=== PATIENT | female | born 1995 | race African-American/Black ===

== ENCOUNTER 2016-07-26 13:42 | Emergency (ER) | payer OTHER ==
[2016-07-26 13:57] VITALS: BP 137/79; PULSE 83; RESP 18; TEMP 98.1
--- NOTE | 2016-07-26 14:10 | ED ---
ENT HPI - General Chief complaint: Dental/Oral Stated complaint: face swelling Time Seen by Provider: 07/26/16 13:58 Source: patient, RN notes reviewed Mode of arrival: ambulatory Limitations: no limitations - History of Present Illness Initial comments: 20-year-old female presents to the emergency Department chief complaint of left- sided dental pain. Patient states that this started about 2 days ago. Patient states left-sided dental pain and facial swelling. Patient denies any pain WAS in the mouth. Patient denies any pain into the neck. Patient states that she was concerned due to the continued swelling so she thought that she should be seen. Patient does have a history of dental infections using antibiotics she has not made his appointment at this time. Patient denies any health symptoms. Patient denies any recent fever, chills, shortness of breath, chest pain, back pain, abdominal pain, nausea vomiting, numbness or tingling, dysuria or hematuria, constipation or diarrhea, headaches or visual changes, or any other current symptoms. - Related Data Home Medications Medication Instructions Recorded Confirmed Ergocalciferol [Vitamin D2] 50,000 unit PO TH 11/26/15 11/26/15 traZODone HCL [Desyrel] 50 mg PO HS 11/26/15 11/26/15 Previous Rx's Medication Instructions Recorded ARIPiprazole IM [Abilify Maintena] 400 mg IM QMONTH #1 vial 07/30/15 Ondansetron Odt [Zofran Odt] 4 mg PO Q8HR PRN #12 tab 11/26/15 Ibuprofen [Motrin] 600 mg PO Q6HR PRN #20 tab 07/26/16 Penicillin V Potassium [Pen Vee K] 500 mg PO TID #40 tab 07/26/16 Allergies Allergy/AdvReac Type Severity Reaction Status Date / Time iodine Allergy Swelling Verified 07/26/16 13:57 Iodine and Iodide Containing Allergy Swelling Verified 07/26/16 13:57 Produc ragweed pollen Allergy Unknown Verified 07/26/16 13:57 Review of Systems ROS Statement: Those systems with pertinent positive or pertinent negative responses have been documented in the HPI. ROS Other: All systems not noted in ROS Statement are negative. Past Medical History Past Medical History: Asthma, Hypertension Additional Past Medical History / Comment(s): no inhaler History of Any Multi-Drug Resistant Organisms: None Reported Past Surgical History: Section Past Anesthesia/Blood Transfusion Reactions: No Reported Reaction Past Psychological History: ADD/ADHD, Anxiety, Bipolar, Depression, PTSD Smoking Status: Current every day smoker Past Alcohol Use History: None Reported Past Drug Use History: Marijuana Additional Drug Use History / Comment(s): Patient states that she smokes MJ one to two joints 4 to 7 days out of the week. Patient reports rare alcohol use. - Past Family History Father History Unknown: Yes Mother Family Medical History: Diabetes Mellitus, Deep Vein Thrombosis (DVT), Myocardial Infarction (HI), Thyroid Disorder General Exam Limitations: no limitations General appearance: alert Head exam: Present: atraumatic, normocephalic, normal inspection Eye exam: Present: normal appearance, PERRL, EOMI. Absent: scleral icterus, conjunctival injection, periorbital swelling ENT exam: Present: normal exam, mucous membranes moist Expanded Ear exam: Present: normal external inspection Mouth exam: Present: normal external inspection Teeth exam: Present: dental caries (Throughout), fractured tooth # (17 and 12), other (No abscess noted). Absent: dental tenderness #, gingival enlargement Throat exam: normal inspection Neck exam: Present: normal inspection. Absent: tenderness, meningismus, lymphadenopathy Respiratory exam: Present: normal lung sounds bilaterally. Absent: respiratory distress, wheezes, rales, rhonchi, stridor Cardiovascular Exam: Present: regular rate, normal rhythm, normal heart sounds. Absent: systolic murmur, diastolic murmur, rubs, gallop, clicks Neurological exam: Present: oriented X3 Psychiatric exam: Present: normal affect, normal mood Skin exam: Present: warm, dry, intact, normal color. Absent: rash Course Vital Signs 07/26/16 13:54 Temperature 98.1 F Pulse Rate 83 Respiratory 18 Rate Blood Pressure 137/79 O2 Sat by Pulse 100 Oximetry Medical Decision Making - Medical Decision Making 20-year-old female presents to the ER with cc of dental pain. At this time we will start antibiotics and pain medications. WE discussed follow up with the dentist and return parameters. Patient in agreement with plan and all questions were answered. Patient will be discharged home. Disposition Clinical Impression: Dental caries Disposition: HOME SELF-CARE Condition: Stable Instructions: Dental Caries (ED) Additional Instructions: Please use medication as discussed. Please follow up with family doctor if symptoms have not improved over the next two days. Please return to the emergency room if your symptoms increase or worsen or for any other concerns. [facility] [address] [place] [address] [phone] (existing clients only) For new clients: [phone] 1st consult: $50 (includes Xrays) Usually 30% less then private dentist for visits after. [employer] Have to pay $50 for Xrays anmd rest is covered. [phone] Prescriptions: Ibuprofen [Motrin] 600 mg PO Q6HR PRN #20 tab PRN Reason: Pain Penicillin V Potassium [Pen Vee K] 500 mg PO TID #40 tab Referrals: None,Stated [Primary Care Provider] - 1-2 days Bryan Morocho MD [STAFF PHYSICIAN] - 1-2 days Time of Disposition: 14:10
== END 2016-07-26 14:30 | disposition home or self-care (01) ==
LOC: EC 13:42
DX: K02.9 Dental caries, unspecified (principal); F41.9 Anxiety disorder, unspecified; F32.9 Major depressive disorder, single episode, unspecified; F17.200 Nicotine dependence, unspecified, uncomplicated; Z79.899 Other long term (current) drug therapy; Z91.048 Other nonmedicinal substance allergy status; Z88.8 Allergy status to other drugs, medicaments and biological substances
CPT/HCPCS: 99283

== ENCOUNTER 2016-12-06 23:05 | Inpatient (IN) | payer MEDICAID, OTHER ==
--- NOTE | 2016-12-06 23:49 | ED ---
General Adult HPI - General Chief complaint: Psychiatric Symptoms Stated complaint: mental health Time Seen by Provider: 12/06/16 23:24 Source: patient, RN notes reviewed Mode of arrival: ambulatory Limitations: no limitations - History of Present Illness Initial comments: 21-year-old female presents to the emergency department with a chief complaint of suicidal ideation. Patient states that she is currently addicted. Patient states today she was either going to kill herself if she was going to get high so she called [facility] and they referred her to the crisis line who referred her here. Patient does admit to history of bipolar depression. Patient states that she did not use drugs since exam this morning. Patient states that she would like to get clean. Patient any specific plan states she had multiple thoughts hurting her head but no specific plan for suicide. Patient states that this time. Patient denies any recent fever, chills, shortness of breath, chest pain, back pain, abdominal pain, nausea vomiting, numbness or tingling, dysuria or hematuria, constipation or diarrhea, headaches or visual changes, or any other current symptoms. - Related Data Home Medications Medication Instructions Recorded Confirmed Albuterol Inhaler [Ventolin Hfa 1 - 2 puff INHALATION RT-Q6H PRN 12/06/16 Inhaler] Allergies Allergy/AdvReac Type Severity Reaction Status Date / Time iodine Allergy Swelling Verified 12/06/16 23:37 Iodine and Iodide Containing Allergy Swelling Verified 12/06/16 23:37 Produc ragweed pollen Allergy Unknown Verified 12/06/16 23:37 Review of Systems ROS Statement: Those systems with pertinent positive or pertinent negative responses have been documented in the HPI. ROS Other: All systems not noted in ROS Statement are negative. Past Medical History Past Medical History: Asthma, Hypertension Additional Past Medical History / Comment(s): no inhaler History of Any Multi-Drug Resistant Organisms: None Reported Past Surgical History: Section Past Anesthesia/Blood Transfusion Reactions: No Reported Reaction Past Psychological History: ADD/ADHD, Anxiety, Bipolar, Depression, PTSD Smoking Status: Current every day smoker Past Alcohol Use History: None Reported Past Drug Use History: Marijuana - Past Family History Father History Unknown: Yes Mother Family Medical History: Diabetes Mellitus, Deep Vein Thrombosis (DVT), Myocardial Infarction (VT), Thyroid Disorder General Exam - General Exam Comments Initial Comments: General: The patient is awake and alert, in no distress, and does not appear acutely ill. Eye: Pupils are equal, round and reactive to light, extra-ocular movements are intact; there is normal conjunctiva bilaterally. No signs of icterus. Ears, nose, mouth and throat: There are moist mucous membranes. Neck: The neck is supple, there is no tenderness. Cardiovascular: There is a regular rate and rhythm. No murmur, rub or gallop is appreciated. Respiratory: Lungs are clear to auscultation, respirations are non-labored, breath sounds are equal. No wheezes, stridor, rales, or rhonchi. Musculoskeletal: Normal ROM, no tenderness, There is no pedal edema. There is no calf tenderness or swelling. Sensation intact. Pulses equal bilaterally 2+. Neurological: CN II-XII intact, There are no obvious motor or sensory deficits. Coordination appears grossly intact. Speech is normal. Skin: Skin is warm and dry and no rashes or lesions are noted. Psychiatric: Cooperative, suicidal ideation. Limitations: no limitations Course Vital Signs 12/06/16 23:14 Temperature 97 F L Pulse Rate 96 Respiratory 18 Rate Blood Pressure 142/90 O2 Sat by Pulse 100 Oximetry Medical Decision Making - Medical Decision Making 21-year-old female presents emergency department with a chief complaint of suicidal ideation. This time the patient does not appear be suffering from any acute medical emergencies. This time the patient is cleared to be evaluated by psychiatry. This time patient was evaluated by psychiatry and they're recommending admission for the patient. - Lab Data Result diagrams: 12/07/16 01:45 12/07/16 01:45 Lab Results 12/06/16 12/06/16 12/06/16 Range/Units 23:30 23:30 23:30 WBC (3.8-10.6) k/uL RBC (3.80-5.40) m/uL Hgb (11.4-16.0) gm/dL Hct (34.0-46.0) % MCV (80.0-100.0) fL MCH (25.0-35.0) pg MCHC (31.0-37.0) g/dL RDW (11.5-15.5) % Plt Count (150-450) k/uL Neutrophils % % Lymphocytes % % Monocytes % % Eosinophils % % Basophils % % Neutrophils # (1.3-7.7) k/uL Lymphocytes # (1.0-4.8) k/uL Monocytes # (0-1.0) k/uL Eosinophils # (0-0.7) k/uL Basophils # (0-0.2) k/uL Sodium (137-145) mmol/L Potassium (3.5-5.1) mmol/L Chloride (98-107) mmol/L Carbon Dioxide (22-30) mmol/L Anion Gap mmol/L BUN (7-17) mg/dL Creatinine (0.52-1.04) mg/dL Est GFR (MDRD) Af Amer (>60 ml/min/1.73 sqM) Est GFR (MDRD) Non-Af (>60 ml/min/1.73 sqM) Glucose (74-99) mg/dL Calcium (8.4-10.2) mg/dL Total Bilirubin (0.2-1.3) mg/dL AST (14-36) U/L ALT (9-52) U/L Alkaline Phosphatase (38-126) U/L Total Protein (6.3-8.2) g/dL Albumin (3.5-5.0) g/dL Urine Color Yellow Urine Appearance Clear (Clear) Urine pH 6.0 (5.0-8.0) Ur Specific Baggs 1.033 (1.001-1.035) Urine Protein Trace H (Negative) Urine Glucose (UA) Negative (Negative) Urine Ketones Trace H (Negative) Urine Blood Moderate H (Negative) Urine Nitrite Negative (Negative) Urine Bilirubin Negative (Negative) Urine Urobilinogen 2.0 (<2.0) mg/dL Ur Leukocyte Esterase Trace H (Negative) Urine RBC 11 H (0-5) /hpf Urine WBC 5 (0-5) /hpf Ur Squamous Epith Cells 2 (0-4) /hpf Calcium Oxalate Crystal Moderate H (None) /hpf Urine Mucus Moderate H (None) /hpf Urine HCG, Qual Not Detected (Not Detectd) Urine Opiates Screen Not Detected (NotDetected) Ur Oxycodone Screen Not Detected (NotDetected) Urine Methadone Screen Not Detected (NotDetected) Ur Propoxyphene Screen Not Detected (NotDetected) Ur Barbiturates Screen Not Detected (NotDetected) U Tricyclic Antidepress Not Detected (NotDetected) Ur Phencyclidine Scrn Not Detected (NotDetected) Ur Amphetamines Screen Detected H (NotDetected) U Methamphetamines Scrn Detected H (NotDetected) U Benzodiazepines Scrn Not Detected (NotDetected) Urine Cocaine Screen Not Detected (NotDetected) U Marijuana (THC) Screen Detected H (NotDetected) 12/07/16 12/07/16 Range/Units 01:45 01:45 WBC 7.3 (3.8-10.6) k/uL RBC 4.04 (3.80-5.40) m/uL Hgb 12.0 (11.4-16.0) gm/dL Hct 36.1 (34.0-46.0) % MCV 89.4 (80.0-100.0) fL MCH 29.6 (25.0-35.0) pg MCHC 33.1 (31.0-37.0) g/dL RDW 14.3 (11.5-15.5) % Plt Count 331 (150-450) k/uL Neutrophils % 46 % Lymphocytes % 43 % Monocytes % 6 % Eosinophils % 2 % Basophils % 1 % Neutrophils # 3.3 (1.3-7.7) k/uL Lymphocytes # 3.2 (1.0-4.8) k/uL Monocytes # 0.4 (0-1.0) k/uL Eosinophils # 0.2 (0-0.7) k/uL Basophils # 0.1 (0-0.2) k/uL Sodium 139 (137-145) mmol/L Potassium 3.7 (3.5-5.1) mmol/L Chloride 109 H (98-107) mmol/L Carbon Dioxide 22 (22-30) mmol/L Anion Gap 8 mmol/L BUN 11 (7-17) mg/dL Creatinine 0.60 (0.52-1.04) mg/dL Est GFR (MDRD) Af Amer >60 (>60 ml/min/1.73 sqM) Est GFR (MDRD) Non-Af >60 (>60 ml/min/1.73 sqM) Glucose 101 H (74-99) mg/dL Calcium 8.9 (8.4-10.2) mg/dL Total Bilirubin 0.3 (0.2-1.3) mg/dL AST 14 (14-36) U/L ALT 26 (9-52) U/L Alkaline Phosphatase 80 (38-126) U/L Total Protein 6.7 (6.3-8.2) g/dL Albumin 3.6 (3.5-5.0) g/dL Urine Color Urine Appearance (Clear) Urine pH (5.0-8.0) Ur Specific Baggs (1.001-1.035) Urine Protein (Negative) Urine Glucose (UA) (Negative) Urine Ketones (Negative) Urine Blood (Negative) Urine Nitrite (Negative) Urine Bilirubin (Negative) Urine Urobilinogen (<2.0) mg/dL Ur Leukocyte Esterase (Negative) Urine RBC (0-5) /hpf Urine WBC (0-5) /hpf Ur Squamous Epith Cells (0-4) /hpf Calcium Oxalate Crystal (None) /hpf Urine Mucus (None) /hpf Urine HCG, Qual (Not Detectd) Urine Opiates Screen (NotDetected) Ur Oxycodone Screen (NotDetected) Urine Methadone Screen (NotDetected) Ur Propoxyphene Screen (NotDetected) Ur Barbiturates Screen (NotDetected) U Tricyclic Antidepress (NotDetected) Ur Phencyclidine Scrn (NotDetected) Ur Amphetamines Screen (NotDetected) U Methamphetamines Scrn (NotDetected) U Benzodiazepines Scrn (NotDetected) Urine Cocaine Screen (NotDetected) U Marijuana (THC) Screen (NotDetected) Disposition Clinical Impression: Depression Disposition: TRANSFER TO PSYCH HOSP/UNIT Referrals: None,Stated [Primary Care Provider] - 1-2 days
[2016-12-07 01:39] LABS: Appearance,Urine Clear (Clear); Bilirubin,Urine Negative (Negative); Calcium Oxalate Crystals,Urine Moderate /hpf; Glucose,Urine (UA) Negative (Negative); Ketones,Urine Trace (Negative); Leukocyte Esterase,Urine Trace (Negative); Mucus,Urine Moderate /hpf; Nitrite,Urine Negative (Negative); Particle Count 6943; Protein,Urine Trace (Negative); RBC,Urine 11 /hpf (0-5); Specific Gravity,Urine 1.033 (1.001-1.035); Squamous Epithelial Cell,Urine 2 /hpf (0-4); UA Billing (MACRO vs. MICRO) MICRO; WBC,Urine 5 /hpf (0-5)
[2016-12-07 01:50] LABS: Basophils # (A) 0.1 k/uL (0-0.2); Basophils % (A) 1 %; CH 31.1; Eosinophils # (A) 0.2 k/uL (0-0.7); Eosinophils % (A) 2 %; HCT 36.1 % (34.0-46.0); Luc # (Auto) 0.16; Luc % (Auto) 2; Lymphocytes # (A) 3.2 k/uL (1.0-4.8); Lymphocytes % (A) 43 %; MCH 29.6 pg (25.0-35.0); MCHC 33.1 g/dL (31.0-37.0); MCV 89.4 fL (80.0-100.0); Mean Platelet Volume 7.1; Monocytes # (A) 0.4 k/uL (0-1.0); Monocytes % (A) 6 %; Neutrophils # (A) 3.3 k/uL (1.3-7.7); Neutrophils % (A) 46 %; RBC 4.04 m/uL (3.80-5.40); RDW 14.3 % (11.5-15.5); WBC 7.3 k/uL (3.8-10.6); WBC (Perox) 6.88
[2016-12-07 02:06] LABS: ALT 26 U/L (9-52); AST 14 U/L (14-36); Alkaline Phosphatase 80 U/L (38-126); Anion Gap 8 mmol/L; Blood Urea Nitrogen 11 mg/dL (7-17); Calcium 8.9 mg/dL (8.4-10.2); Carbon Dioxide 22 mmol/L (22-30); Chloride 109 mmol/L (98-107); Glucose 101 mg/dL (74-99); Non-African American GFR(MDRD) >60 (>60 ml/min/1.73 sqM); Potassium 3.7 mmol/L (3.5-5.1); Sodium 139 mmol/L (137-145); Total Bilirubin 0.3 mg/dL (0.2-1.3); Total Protein 6.7 g/dL (6.3-8.2)
[2016-12-07] MEDS ORDERED: LORazepam 1 MG TAB PO STA (14:05)
[2016-12-07] MEDS ORDERED: MAG HYDROX/AL HYDROX/SIMETH 30 ML CUP PO PRN (18:31)
[2016-12-07] MEDS ORDERED: ZIPRASIDONE 20 MG VIAL IM PRN (18:31)
[2016-12-07] MEDS ORDERED: LORazepam 1 MG TAB PO PRN (18:31)
[2016-12-07] MEDS ORDERED: MAGNESIUM HYDROXIDE 2,400 MG/10 ML CUP PO PRN (18:31)
[2016-12-07] MEDS ORDERED: ACETAMINOPHEN TAB 325 MG TAB PO PRN (18:31)
[2016-12-07] MEDS ORDERED: IBUPROFEN 600 MG TAB PO PRN (19:49)
--- NOTE | 2016-12-07 22:53 | P.MDCNMH ---
History of Present Illness H&P Date: 12/07/16 Chief Complaint: medical management 21-year-old female with remote past medical history of high blood pressure and asthma however she is currently taking no medications. Upon interviewing the patient she refuses to talk about her psychiatry/mental conditions and directed me to review her chart. She is denying any medical complaints at this time, and denies any history of medical issues. She admits to history of depression , PTSD, ADH and bipolar disorder. 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 Patient reported to the ED doctor that she wants to be clean and seeking rehab. Review of Systems Constitutional: Patient reports no fever, no chills, no night sweating, no significant weight changes Eyes: Patient reports no visual changes, no eye pain ENT: Patient reports no ear pain, no rhinorrhea, no sore throat Cardiovascular: Patient reports no chest pain, no exertional dyspnea, no peripheral leg edema, no orthopnea, no paroxysmal nocturnal dyspnea Respiratory:Patient reports no cough, no wheezing, no shortness of breath Gastrointestinal: Patient reports no diarrhea, no constipation, no nausea no vomiting, no abdominal pain Genitourinary: Patient reports no dysuria, no hematuria, no changes in urinary habits, no genital lesions. currently having her periods Musculoskeletal: Patient reports no muscle pain, no joint pain Psychiatric: Patient reports anxiety, and depressed mood Endocrine: Patient reports no heat intolerance, no cold intolerance, no excessive thirst, no polyuria Neurological: Patient reports no focal neurologic deficits, no weakness, no numbness, no tingling Hem/Lymphatic: Patient reports no bleeding tendency, no bruising, no swollen lymph glands Allergic/Immun: Patient reports no recent allergic reactions Skin: Patient reports no rashes, no pruritis, no ulcers Past Medical History Past Medical History: Asthma, Hypertension Additional Past Medical History / Comment(s): no inhaler History of Any Multi-Drug Resistant Organisms: None Reported Past Surgical History: Section Past Anesthesia/Blood Transfusion Reactions: No Reported Reaction Past Psychological History: ADD/ADHD, Anxiety, Bipolar, Depression, PTSD Smoking Status: Current every day smoker Past Alcohol Use History: None Reported Past Drug Use History: Marijuana - Past Family History Father History Unknown: Yes Mother History Unknown: Yes Additional Family Medical History / Comment(s): patient adopted Medications and Allergies Home Medications and Allergies Comment(s): patient reported taking no medications Home Medications Medication Instructions Recorded Confirmed Type Albuterol Inhaler [Ventolin Hfa 1 - 2 puff INHALATION RT-Q6H PRN 12/06/16 History Inhaler] Allergies Allergy/AdvReac Type Severity Reaction Status Date / Time iodine Allergy Swelling Verified 12/06/16 23:37 Iodine and Iodide Containing Allergy Swelling Verified 12/06/16 23:37 Produc ragweed pollen Allergy Unknown Verified 12/06/16 23:37 Physical Exam Vitals: Vital Signs Temp Pulse Resp BP BP Pulse Ox 12/07/16 15:29 98.0 F 15 99/55 98 12/07/16 14:30 98.3 F 86 18 105/54 99 12/07/16 12:41 97.8 F 90 16 105/69 99 12/07/16 06:40 96 16 100/52 98 12/06/16 23:14 97 F L 96 18 142/90 100 Intake and Output 12/07/16 12/07/16 12/07/16 06:59 14:59 22:59 Other: Weight 91.172 kg Constitutional: No acute distress, conversant, pleasant Eyes: Anicteric sclerae, moist conjunctiva, no lid-lag Pupils equal round reactive to light ENMT: NC/AT Oropharynx clear, no erythema, exudates Neck: Supple, FROM, no masses, or JVD No carotid bruits No thyromegaly Lungs: Clear to auscultation Clear to percussion Normal respiratory effort, no accessory muscle use Cardiovascular: Heart regular in rate and rhythm, No murmurs, gallops, or rubs No peripheral edema Abdominal: Soft Nontender, no guarding, rebound or rigidity Abdomen moving with respiration Normoactive bowel sounds No hepatomegaly, No splenomegaly No palpable mass No abdominal wall hernia noted Skin: Normal temperature, tone, texture, turgor No induration No subcutaneous nodules No rash, lesions No ulcers Extremities: No digital cyanosis No clubbing Pedal pulses intact and symmetrical Radial pulses intact and symmetrical No calf tenderness Psychiatric: Alert and oriented to person, place and time depressed affect poor judgement Neuro Muscles Strength 5/5 in all 4 extremities Sensation to light touch grossly present throughout Cranial nerves II-XII grossly intact No focal sensory deficits Lymphatics: no palpable cervical or supraclavicular , or inguinal lymph nodes Cranial Nerve Examination - Cranial Nerves Cranial Nerve II- Optic: Intact Cranial Nerve III- Oculomotor: Intact Cranial Nerve IV- Trochlear: Intact Cranial Nerve V- Trigeminal: Intact Cranial Nerve - Abducens: Intact Cranial Nerve VII- Facial: Intact Cranial Nerve VIII- Auditory: Intact Cranial Nerve IX- Glossopharyngeal: Intact Cranial Nerve X- Vagus: Intact Cranial Nerve XI- Accessory: Intact Cranial Nerve XII- Hypoglossal: Intact Results Results: reviewed CBC & Chem 7: 12/07/16 01:45 12/07/16 01:45 Labs: Abnormal Lab Results - Last 24 Hours (Table) 12/06/16 12/06/16 12/07/16 Range/Units 23:30 23:30 01:45 Chloride 109 H (98-107) mmol/L Glucose 101 H (74-99) mg/dL Urine Protein Trace H (Negative) Urine Ketones Trace H (Negative) Urine Blood Moderate H (Negative) Ur Leukocyte Esterase Trace H (Negative) Urine RBC 11 H (0-5) /hpf Calcium Oxalate Crystal Moderate H (None) /hpf Urine Mucus Moderate H (None) /hpf Ur Amphetamines Screen Detected H (NotDetected) U Methamphetamines Scrn Detected H (NotDetected) U Marijuana (THC) Screen Detected H (NotDetected) Assessment and Plan (1) Depression Status: Chronic (2) Suicidal ideation Status: Acute (3) Menstrual cramps Status: Acute Plan: Management per psychiatry 50 prophylaxis patient is ambulatory and low risk Motrin when necessary for menstrual cramps Thank you for allowing us to participate in the care of this patient. We will follow peripherally. Do not hesitate to contact us with questions. Someone can be reached from the [facility] hospitalist group at all hours of the day at [phone].
[2016-12-08 07:07] VITALS: BP 101/59; PULSE 85; RESP 18; TEMP 98.1
[2016-12-08] MEDS ORDERED: NICOTINE 14MG/24HR PATCH TRANSDERM SCH (09:00)
--- NOTE | 2016-12-08 10:20 | P.HP ---
Psychiatric H&P - . H&P Date: 12/08/16 History & Physical: Allergies Allergy/AdvReac Type Severity Reaction Status Date / Time iodine Allergy Swelling Verified 12/06/16 23:37 Iodine and Iodide Containing Allergy Swelling Verified 12/06/16 23:37 Produc ragweed pollen Allergy Unknown Verified 12/06/16 23:37 Vital Signs Temp 98.1 F 12/08/16 07:03 Pulse 85 12/08/16 07:03 Resp 18 12/08/16 07:03 BP 101/59 12/08/16 07:03 Pulse Ox 98 12/07/16 15:29 Laboratory Last Values WBC 7.3 k/uL (3.8-10.6) 12/07/16 01:45 RBC 4.04 m/uL (3.80-5.40) 12/07/16 01:45 Hgb 12.0 gm/dL (11.4-16.0) 12/07/16 01:45 Hct 36.1 % (34.0-46.0) 12/07/16 01:45 MCV 89.4 fL (80.0-100.0) 12/07/16 01:45 MCH 29.6 pg (25.0-35.0) 12/07/16 01:45 MCHC 33.1 g/dL (31.0-37.0) 12/07/16 01:45 RDW 14.3 % (11.5-15.5) 12/07/16 01:45 Plt Count 331 k/uL (150-450) 12/07/16 01:45 Neutrophils % 46 % 12/07/16 01:45 Lymphocytes % 43 % 12/07/16 01:45 Monocytes % 6 % 12/07/16 01:45 Eosinophils % 2 % 12/07/16 01:45 Basophils % 1 % 12/07/16 01:45 Neutrophils # 3.3 k/uL (1.3-7.7) 12/07/16 01:45 Lymphocytes # 3.2 k/uL (1.0-4.8) 12/07/16 01:45 Monocytes # 0.4 k/uL (0-1.0) 12/07/16 01:45 Eosinophils # 0.2 k/uL (0-0.7) 12/07/16 01:45 Basophils # 0.1 k/uL (0-0.2) 12/07/16 01:45 Sodium 139 mmol/L (137-145) 12/07/16 01:45 Potassium 3.7 mmol/L (3.5-5.1) 12/07/16 01:45 Chloride 109 mmol/L (98-107) H 12/07/16 01:45 Carbon Dioxide 22 mmol/L (22-30) 12/07/16 01:45 Anion Gap 8 mmol/L 12/07/16 01:45 BUN 11 mg/dL (7-17) 12/07/16 01:45 Creatinine 0.60 mg/dL (0.52-1.04) 12/07/16 01:45 Est GFR (MDRD) Af Amer >60 (>60 ml/min/1.73 sqM) 12/07/16 01:45 Est GFR (MDRD) Non-Af >60 (>60 ml/min/1.73 sqM) 12/07/16 01:45 Glucose 101 mg/dL (74-99) H 12/07/16 01:45 Calcium 8.9 mg/dL (8.4-10.2) 12/07/16 01:45 Total Bilirubin 0.3 mg/dL (0.2-1.3) 12/07/16 01:45 AST 14 U/L (14-36) 12/07/16 01:45 ALT 26 U/L (9-52) 12/07/16 01:45 Alkaline Phosphatase 80 U/L (38-126) 12/07/16 01:45 Total Protein 6.7 g/dL (6.3-8.2) 12/07/16 01:45 Albumin 3.6 g/dL (3.5-5.0) 12/07/16 01:45 TSH 1.150 mIU/L (0.465-4.680) 12/07/16 01:45 Urine Color Yellow 12/06/16 23:30 Urine Appearance Clear (Clear) 12/06/16 23:30 Urine pH 6.0 (5.0-8.0) 12/06/16 23:30 Ur Specific [place] 1.033 (1.001-1.035) 12/06/16 23:30 Urine Protein Trace (Negative) H 12/06/16 23:30 Urine Glucose (UA) Negative (Negative) 12/06/16 23:30 Urine Ketones Trace (Negative) H 12/06/16 23:30 Urine Blood Moderate (Negative) H 12/06/16 23:30 Urine Nitrite Negative (Negative) 12/06/16 23:30 Urine Bilirubin Negative (Negative) 12/06/16 23:30 Urine Urobilinogen 2.0 mg/dL (<2.0) 12/06/16 23:30 Ur Leukocyte Esterase Trace (Negative) H 12/06/16 23:30 Urine RBC 11 /hpf (0-5) H 12/06/16 23:30 Urine WBC 5 /hpf (0-5) 12/06/16 23:30 Ur Squamous Epith Cells 2 /hpf (0-4) 12/06/16 23:30 Calcium Oxalate Crystal Moderate /hpf (None) H 12/06/16 23:30 Urine Mucus Moderate /hpf (None) H 12/06/16 23:30 Urine HCG, Qual Not Detected (Not Detectd) 12/06/16 23:30 Urine Opiates Screen Not Detected (NotDetected) 12/06/16 23:30 Ur Oxycodone Screen Not Detected (NotDetected) 12/06/16 23:30 Urine Methadone Screen Not Detected (NotDetected) 12/06/16 23:30 Ur Propoxyphene Screen Not Detected (NotDetected) 12/06/16 23:30 Ur Barbiturates Screen Not Detected (NotDetected) 12/06/16 23:30 U Tricyclic Antidepress Not Detected (NotDetected) 12/06/16 23:30 Ur Phencyclidine Scrn Not Detected (NotDetected) 12/06/16 23:30 Ur Amphetamines Screen Detected (NotDetected) H 12/06/16 23:30 U Methamphetamines Scrn Detected (NotDetected) H 12/06/16 23:30 U Benzodiazepines Scrn Not Detected (NotDetected) 12/06/16 23:30 Urine Cocaine Screen Not Detected (NotDetected) 12/06/16 23:30 U Marijuana (THC) Screen Detected (NotDetected) H 12/06/16 23:30 12/08/16 09:56 Identification: Patient is a 21-year-old female who was came to the emergency room she states after she called [facility] in told her to call crisis support. When she spoke with crisis support she was told to come to the emergency room because she verbalized to them that she was going to "get high or to something stupid" History of Present Illness: Patient states that she has not received her medications since August and she was receiving Abilify Maintena, she states that she over the last 6 months has felt increasingly suicidal every time she comes off methamphetamine which she states she has been using on a daily basis as well as marijuana. Patient states that when she saw me yesterday in the emergency room she threatened suicide because I would not let her sleep and I asked too many questions. Patient is a fair historian. Patient states that she got into an argument with the father of her child and this is when she made the statement that she was going to do something stupid like get a needle or shoot up. Patient states that her sister in September of an overdose of heroin. Patient at one point stated she was only using methamphetamine daily prior to her admission at another point said she been using it for the last 6 months and states that no one knew she was using methamphetamine. Patient is unable to tell me how she was doing on the Abilify Maintena states that she was receiving injectable medication because she was not compliant with her oral medication. Patient reports that she's been diagnosed with bipolar depression states she has episodes where she feels happy, talking a lot talking too fast increased energy and impulsive behavior. She describes episodes of depression where she is withdrawn, having suicidal ideation and states that she gets high when she is feeling depressed so that she can numb her feelings. And then states that she feels suicidal every time she comes off the methamphetamine. Patient does not endorse any auditory hallucinations or paranoid ideation currently or in the past. She denies any thought insertion or thought broadcasting. Patient states she is interested in going into rehab for her drug use and states she doesn't feel that she needs to be in the hospital. Past Psychiatric History: Patient reports 3 prior admissions in May and July 2015 and states that she attempted suicide in the past with an overdose in 2016. Patient has been on Depakote, Zoloft, Prozac, Cymbalta, Remeron, Seroquel, trazodone and most recently Abilify Maintena Past Medical/Surgical History: Patient states she's been diagnosed with hypertension in the past but her medications were stopped by her primary care physician because her blood pressures were normal. Patient also has a history of asthma and is status post . Home Medications Medication Instructions Recorded Confirmed Albuterol Inhaler [Ventolin Hfa 1 - 2 puff INHALATION RT-Q6H PRN 12/06/16 Inhaler] Family History: [Patient states she is adopted and knows none of her family history. Social History: Patient states she was born and raised in [place] and adopted at the age of 6. She states she was in multiple foster care homes prior to her adoption and is unsure about why she was placed in foster care she states that she has heard different stories her mother stating that she had to work too much and the papers state that her mother was neglecting them. Patient was adopted at the age of 6 and states that she has 5 adopted sisters and 2 adopted brothers however they were all adults when she was adopted. Her adoptive parents are alive and she has contact with her mother. Her father she states is in halfway. She states she has 3/2 sisters who share the same mother with her. Patient states she completed high school and went on to college and attended for 3 semesters and then stopped. 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 Patient has been living on her own in an apartment. She has never been . She has 1 son who lives with his father he is 20 months of age. She states his father has sole custody after she signed him over to her best friend and then found out that she was involved wit the father of her baby she then signed the rights over to him. Substance Use History: Patient states she's been using methamphetamine since the age 20 and states that she has been using it on a daily basis and has been using it for at least the last 6 months. Patient states that she used to use alcohol when she was working as a stripper 6 nights a week but has not been using it recently. She states she is uses marijuana daily since the age of 11. She denies any other history of drug use currently or in the past. Legal History: Patient denies any legal history. Mental Status:Appearance/Attitude: Patient is dressed in a hospital gown, makes intermittent eye contact and is superficially cooperative. Behavior: Patient does not display any psychomotor agitation or retardation. Speech/Language: Patient is spontaneous however her answers are brief to my questions and she needs redirection to elaborate, she speaks in a normal tone and rhythm and she is coherent. Thought Process: Patient is goal-directed, not circumstantial or tangential and no loose associations or flight of ideas. Thought Content: Patient denies any auditory or visual hallucinations no delusions or paranoid ideation were elicited. Patient states that she told me yesterday she was suicidal because she was upset that I would not let her sleep for another 20 minutes and was asking too many questions. She also states that she contacted [facility] wanting to start the program and he told her to call the crisis center where she told them that she was going to get high or do something stupid with a needle or shoot up. Patient states she's felt suicidal every day over the last 6 months whenever she is coming off the methamphetamine. Suicidal/Homicidal Ideation: Patient denies any current suicidal or homicidal ideation. Sensorium/Cognition: Patient is alert and oriented to person, place, and time and her memory is grossly intact. Mood/Affect: Patient's mood is irritable and her affect is appropriate. Insight/Judgement: Patient's insight and judgment are poor. Intellectual Functioning: Patient's intellectual functioning appears average. Strength/Weaknesses: Patient does have a place to live/lack of compliance with medication and follow-up, use of drugs. Assessment: Patient was seen in the emergency room yesterday where she was sleeping and refused to sit up and speak with me and would only answer questions with brief responses and when she was asked if she was suicidal and couldn't contract for safety she told me know that she was going to do something and then stated that she wanted to leave the hospital. Patient now states that she threatened suicide because I didn't let her sleep for another 20 minutes and was asking too many questions. The patient states she has been using methamphetamine over the last 6 months and every time she comes off of the methamphetamine she feels suicidal then at another point she told me that she uses the methamphetamine when she is feeling depressed to get numb. Patient has not been receiving her medications since August per the patient and this was Shank[facility]. Patient is being followed at [facility]. Patient states she got into an argument with the father of her baby and she called [facility] wanting to get into the rehab program and was told to call the crisis center. She talked states when she spoke to the crisis support team she told them that she was going to "get high or do something stupid like get a needle and shoot up. Patient currently states she does not need to be in the hospital and is no longer feeling suicidal. Admission Diagnoses:[Methamphetamine-induced depressive disorder with use, methamphetamine use disorder, moderate, cannabis use disorder, moderate ,rule out bipolar type II disorder Plan: Patient was admitted on a voluntary basis, placed on routine precautions, routine laboratory studies were ordered and a medical consultation was requested. She was also ordered group and activity therapy. Patient reports that she is no longer feeling suicidal and states she only said that yesterday because she was upset that I wouldn't let her continue to sleep and was asking her questions. Patient states that she has not had any medications since August and does not endorse any current manic symptoms or psychotic symptoms. Patient has been using methamphetamine over the last 6 months. Patient also uses marijuana on a daily basis. Patient at this time states that she wants to go to inpatient rehab for her methamphetamine use. Will discuss with [facility] about whether or not they want to reinstitute Shankar Sullivan and their discharge plans for this patient. Can consider discharge within the next several days. 12/08/16 10:12
[2016-12-08] MEDS ORDERED: ARIPiprazole 400 MG VIAL IM ONE (11:53)
--- NOTE | 2016-12-08 13:09 | P.DS ---
Providers Date of admission: 12/07/16 14:27 Expected date of discharge: 12/08/16 Attending physician: Do Sanchez MD Consults: 12/07/16 18:43 Consult Physician Routine Consulting Provider: Sherrie Upton Consult Reason/Comments: H and P and medical follow up Do you want consulting provider notified?: Yes Primary care physician: Stated None Hospital Course: Discharge Diagnoses: History of Present Illness:Patient is a 21-year-old female who was came to the emergency room she states after she called [facility] in a told her to call crisis support. When she spoke with crisis support she was told to come to the emergency room because she verbalized to them that she was going to "get high or do something stupid". Reason for Admission: Patient states that she has not received her medications since August and she was receiving Abilify Maintena, she states that she over the last 6 months has felt increasingly suicidal every time she comes off methamphetamine which she states she has been using on a daily basis as well as marijuana. Patient states that when she saw me yesterday in the emergency room she threatened suicide because I would not let her sleep and I asked too many questions. Patient is a fair historian. Patient states that she got into an argument with the father of her child and this is when she made the statement that she was going to do something stupid like get a needle or shoot up. Patient states that her sister in September of an overdose of heroin. Patient at one point stated she was only using methamphetamine daily prior to her admission at another point said she been using it for the last 6 months and states that no one knew she was using methamphetamine. Patient is unable to tell me how she was doing on the Abilify Maintena states that she was receiving injectable medication because she was not compliant with her oral medication. Patient reports that she's been diagnosed with bipolar depression states she has episodes where she feels happy, talking a lot talking too fast increased energy and impulsive behavior. She describes episodes of depression where she is withdrawn, having suicidal ideation and states that she gets high when she is feeling depressed so that she can numb her feelings. And then states that she feels suicidal every time she comes off the methamphetamine. Patient does not endorse any auditory hallucinations or paranoid ideation currently or in the past. She denies any thought insertion or thought broadcasting. Patient states she is interested in going into rehab for her drug use and states she doesn't feel that she needs to be in the hospital. Hospital Course: Patient was admitted on a voluntary basis, routine laboratory studies were performed medical consultation was requested in group and activity therapy were ordered. Patient was maintained on routine precautions. Patient and I met and she stated that she reported to me yesterday that she was feeling suicidal due to the fact that I would not let her sleep and asked too many questions. She states that she is no longer feeling suicidal and wants to leave the hospital. Patient has been sleeping on the unit not attending groups and activities. During team treatment meeting it was discussed at [facility] that they would like her restarted on her Abilify Maintena in a stated that they wouldn't patient was agreeable to receiving another injection of Abilify Maintena 400 mg and she received a today. Patient was no longer reporting feeling depressed, no longer reporting suicidal ideations and stated that she is sleeping well and her appetite is good. Patient will be discharged to follow up with [facility]. Discharge Mental Status:Appearance/Attitude: Patient is dressed in a hospital gown, makes intermittent eye contact and is superficially cooperative. Behavior: Patient does not display any psychomotor agitation or retardation. Speech/Language: Patient is spontaneous however her answers are brief to my questions and she needs redirection to elaborate, she speaks in a normal tone and rhythm and she is coherent. Thought Process: Patient is goal-directed, not circumstantial or tangential and no loose associations or flight of ideas. Thought Content: Patient denies any auditory or visual hallucinations no delusions or paranoid ideation were elicited. Patient states that she told me yesterday she was suicidal because she was upset that I would not let her sleep for another 20 minutes and was asking too many questions. She also states that she contacted [facility] wanting to start the program and he told her to call the crisis center where she told them that she was going to get high or do something stupid with a needle or shoot up. Patient states she's felt suicidal every day over the last 6 months whenever she is coming off the methamphetamine. Suicidal/Homicidal Ideation: Patient denies any current suicidal or homicidal ideation. Sensorium/Cognition: Patient is alert and oriented to person, place, and time and her memory is grossly intact. Mood/Affect: Patient's mood is irritable and her affect is appropriate. Insight/Judgement: Patient's insight and judgment are poor. Laboratory Last Values WBC 7.3 k/uL (3.8-10.6) 12/07/16 01:45 RBC 4.04 m/uL (3.80-5.40) 12/07/16 01:45 Hgb 12.0 gm/dL (11.4-16.0) 12/07/16 01:45 Hct 36.1 % (34.0-46.0) 12/07/16 01:45 MCV 89.4 fL (80.0-100.0) 12/07/16 01:45 MCH 29.6 pg (25.0-35.0) 12/07/16 01:45 MCHC 33.1 g/dL (31.0-37.0) 12/07/16 01:45 RDW 14.3 % (11.5-15.5) 12/07/16 01:45 Plt Count 331 k/uL (150-450) 12/07/16 01:45 Neutrophils % 46 % 12/07/16 01:45 Lymphocytes % 43 % 12/07/16 01:45 Monocytes % 6 % 12/07/16 01:45 Eosinophils % 2 % 12/07/16 01:45 Basophils % 1 % 12/07/16 01:45 Neutrophils # 3.3 k/uL (1.3-7.7) 12/07/16 01:45 Lymphocytes # 3.2 k/uL (1.0-4.8) 12/07/16 01:45 Monocytes # 0.4 k/uL (0-1.0) 12/07/16 01:45 Eosinophils # 0.2 k/uL (0-0.7) 12/07/16 01:45 Basophils # 0.1 k/uL (0-0.2) 12/07/16 01:45 Sodium 139 mmol/L (137-145) 12/07/16 01:45 Potassium 3.7 mmol/L (3.5-5.1) 12/07/16 01:45 Chloride 109 mmol/L (98-107) H 12/07/16 01:45 Carbon Dioxide 22 mmol/L (22-30) 12/07/16 01:45 Anion Gap 8 mmol/L 12/07/16 01:45 BUN 11 mg/dL (7-17) 12/07/16 01:45 Creatinine 0.60 mg/dL (0.52-1.04) 12/07/16 01:45 Est GFR (MDRD) Af Amer >60 (>60 ml/min/1.73 sqM) 12/07/16 01:45 Est GFR (MDRD) Non-Af >60 (>60 ml/min/1.73 sqM) 12/07/16 01:45 Glucose 101 mg/dL (74-99) H 12/07/16 01:45 Calcium 8.9 mg/dL (8.4-10.2) 12/07/16 01:45 Total Bilirubin 0.3 mg/dL (0.2-1.3) 12/07/16 01:45 AST 14 U/L (14-36) 12/07/16 01:45 ALT 26 U/L (9-52) 12/07/16 01:45 Alkaline Phosphatase 80 U/L (38-126) 12/07/16 01:45 Total Protein 6.7 g/dL (6.3-8.2) 12/07/16 01:45 Albumin 3.6 g/dL (3.5-5.0) 12/07/16 01:45 TSH 1.150 mIU/L (0.465-4.680) 12/07/16 01:45 Urine Color Yellow 12/06/16 23:30 Urine Appearance Clear (Clear) 12/06/16 23:30 Urine pH 6.0 (5.0-8.0) 12/06/16 23:30 Ur Specific [place] 1.033 (1.001-1.035) 12/06/16 23:30 Urine Protein Trace (Negative) H 12/06/16 23:30 Urine Glucose (UA) Negative (Negative) 12/06/16 23:30 Urine Ketones Trace (Negative) H 12/06/16 23:30 Urine Blood Moderate (Negative) H 12/06/16 23:30 Urine Nitrite Negative (Negative) 12/06/16 23:30 Urine Bilirubin Negative (Negative) 12/06/16 23:30 Urine Urobilinogen 2.0 mg/dL (<2.0) 12/06/16 23:30 Ur Leukocyte Esterase Trace (Negative) H 12/06/16 23:30 Urine RBC 11 /hpf (0-5) H 12/06/16 23:30 Urine WBC 5 /hpf (0-5) 12/06/16 23:30 Ur Squamous Epith Cells 2 /hpf (0-4) 12/06/16 23:30 Calcium Oxalate Crystal Moderate /hpf (None) H 12/06/16 23:30 Urine Mucus Moderate /hpf (None) H 12/06/16 23:30 Urine HCG, Qual Not Detected (Not Detectd) 12/06/16 23:30 Urine Opiates Screen Not Detected (NotDetected) 12/06/16 23:30 Ur Oxycodone Screen Not Detected (NotDetected) 12/06/16 23:30 Urine Methadone Screen Not Detected (NotDetected) 12/06/16 23:30 Ur Propoxyphene Screen Not Detected (NotDetected) 12/06/16 23:30 Ur Barbiturates Screen Not Detected (NotDetected) 12/06/16 23:30 U Tricyclic Antidepress Not Detected (NotDetected) 12/06/16 23:30 Ur Phencyclidine Scrn Not Detected (NotDetected) 12/06/16 23:30 Ur Amphetamines Screen Detected (NotDetected) H 12/06/16 23:30 U Methamphetamines Scrn Detected (NotDetected) H 12/06/16 23:30 U Benzodiazepines Scrn Not Detected (NotDetected) 12/06/16 23:30 Urine Cocaine Screen Not Detected (NotDetected) 12/06/16 23:30 U Marijuana (THC) Screen Detected (NotDetected) H 12/06/16 23:30 Risk Assessment: Patient's risk is low should she follow-up with outpatient treatment and be compliant with her medications and remain sober. Discharge Plan: Patient will be discharged to return to her own apartment, she will follow up with [facility] and received Abilify Maintena 400 mg IM today and will be due for another injection in one month dose to be determined by [facility]. Patient was advised to avoid any drug use and follow-up and be compliant with treatment. Patient Condition at Discharge: Stable Plan - Discharge Summary New Discharge Prescriptions: Continue Albuterol Inhaler [Ventolin Hfa Inhaler] 1 - 2 puff INHALATION RT-Q6H PRN PRN Reason: Shortness Of Breath Discharge Medication List Albuterol Inhaler [Ventolin Hfa Inhaler] 1 - 2 puff INHALATION RT-Q6H PRN [History] Follow up Appointment(s)/Referral(s): intake,intake [Other] - [address] [facility] [Outside] - 12/13/16 10:45 am (12/13/16 at 1045 with Katie) None,Stated [Primary Care Provider] - 1-2 days Discharge Disposition: HOME SELF-CARE
== END 2016-12-08 17:18 | disposition home or self-care (01) | DRG 897 ==
LOC: EC 23:05 → 3MHU 12-07 14:27
PROVIDERS: ADMIT Psychiatry & Neurology Psychiatry; ATTEND Psychiatry & Neurology Psychiatry
DX: F15.94 Other stimulant use, unspecified with stimulant-induced mood disorder (principal); R45.851 Suicidal ideations; F12.988 Cannabis use, unspecified with other cannabis-induced disorder; F17.200 Nicotine dependence, unspecified, uncomplicated; F43.10 Post-traumatic stress disorder, unspecified; F90.9 Attention-deficit hyperactivity disorder, unspecified type; Z82.49 Family history of ischemic heart disease and other diseases of the circulatory system; Z91.19 Patient's noncompliance with other medical treatment and regimen
CPT/HCPCS: 36415; 80053; 80306; 81001; 81025; 82075; 84443; 85025; 99285

== ENCOUNTER 2017-01-22 08:59 | Emergency (ER) | payer OTHER ==
[2017-01-22 09:08] VITALS: BP 132/74; PULSE 102; RESP 20; TEMP 98.2
[2017-01-22] MEDS ORDERED: CLINDAMYCIN 150 MG/ML 4 ML VIAL IM STA (09:27)
--- NOTE | 2017-01-22 09:31 | ED ---
ENT HPI - General Chief complaint: Dental/Oral Stated complaint: tooth abcess Time Seen by Provider: 01/22/17 09:17 Source: patient, RN notes reviewed Mode of arrival: ambulatory Limitations: no limitations - History of Present Illness Initial comments: 21-year-old female presented emergency department for dental abscess. Patient was seen yesterday at [facility] and was given Toradol and Vicodin. Patient states she was placed on antibiotics was only taken 3 doses of it. She states she's unsure what this is but only as prescribed 3 times a day. Patient states that she was advised come here because they do not have oral surgeon. Patient states that there is now a bump that she noted inside of her mouth. Patient has fevers or chills denies any neck pain no headache or dizziness. - Related Data Home Medications Medication Instructions Recorded Confirmed Albuterol Inhaler [Ventolin Hfa 1 - 2 puff INHALATION RT-Q6H PRN 12/06/16 Inhaler] ARIPiprazole [Abilitheron Maintena] 400 mg IM QMONTH 12/08/16 12/08/16 Previous Rx's Medication Instructions Recorded Clindamycin HCl 300 mg PO Q6HR #40 cap 01/22/17 Allergies Allergy/AdvReac Type Severity Reaction Status Date / Time iodine Allergy Swelling Verified 01/22/17 09:08 Iodine and Iodide Containing Allergy Swelling Verified 01/22/17 09:08 Produc ragweed pollen Allergy Unknown Verified 01/22/17 09:08 Review of Systems ROS Statement: Those systems with pertinent positive or pertinent negative responses have been documented in the HPI. ROS Other: All systems not noted in ROS Statement are negative. Past Medical History Past Medical History: Asthma, Hypertension Additional Past Medical History / Comment(s): no inhaler History of Any Multi-Drug Resistant Organisms: None Reported Past Surgical History: Section Past Anesthesia/Blood Transfusion Reactions: No Reported Reaction Past Psychological History: ADD/ADHD, Anxiety, Bipolar, Depression, PTSD Smoking Status: Current every day smoker Past Alcohol Use History: None Reported Past Drug Use History: Marijuana - Past Family History Father History Unknown: Yes Mother History Unknown: Yes Family Medical History: Diabetes Mellitus, Deep Vein Thrombosis (DVT), Myocardial Infarction ([place]), Thyroid Disorder Additional Family Medical History / Comment(s): patient adopted General Exam Limitations: no limitations General appearance: alert, in no apparent distress Head exam: Present: atraumatic, normocephalic, normal inspection Eye exam: Present: normal appearance, PERRL, EOMI. Absent: scleral icterus, conjunctival injection, periorbital swelling ENT exam: Present: mucous membranes moist, TM's normal bilaterally, normal external ear exam. Absent: normal exam, normal oropharynx (ModerateLeft lower jawline, there is an abscess noted on long #19) Neck exam: Present: normal inspection, full ROM. Absent: tenderness, meningismus, lymphadenopathy Respiratory exam: Present: normal lung sounds bilaterally. Absent: respiratory distress, wheezes, rales, rhonchi, stridor Cardiovascular Exam: Present: regular rate, normal rhythm, normal heart sounds. Absent: systolic murmur, diastolic murmur, rubs, gallop, clicks Course Vital Signs 01/22/17 09:07 Temperature 98.2 F Pulse Rate 102 H Respiratory 20 Rate Blood Pressure 132/74 O2 Sat by Pulse 100 Oximetry Procedures - Procedures Initial comment: Dental abscess 18-gauge needle was used to open the abscess there is a large amount. Drainage patient tolerated well no compilations Medical Decision Making - Medical Decision Making 21-year-old female presented for dental infection. Patient had an abscess which was open. She has only taken 3 doses of antibiotics patient be given a shot of IM injection today and prescribed clindamycin as she does not know if she is currently taking. She is advised to return if worsening symptoms . Disposition Clinical Impression: Dental abscess Disposition: HOME SELF-CARE Condition: Stable Instructions: Dental Abscess (ED) Additional Instructions: Please return to the Emergency Department if symptoms worsen or any other concerns. Prescriptions: Clindamycin HCl 300 mg PO Q6HR #40 cap Referrals: None,Stated [Primary Care Provider] - 1-2 days Virgil Williamson DDS [STAFF PHYSICIAN] - 1-2 days Time of Disposition: 09:31
== END 2017-01-22 09:50 | disposition home or self-care (01) ==
LOC: EC 08:59
DX: K04.7 Periapical abscess without sinus (principal); F31.9 Bipolar disorder, unspecified; F17.200 Nicotine dependence, unspecified, uncomplicated; Z79.899 Other long term (current) drug therapy; Z91.048 Other nonmedicinal substance allergy status
CPT/HCPCS: 41800; 96372; 99282

== ENCOUNTER 2017-02-17 14:14 | Emergency (ER) | payer OTHER ==
[2017-02-17] MEDS ORDERED: ONDANSETRON 4 MG/2 ML VIAL IVP STA (16:15)
[2017-02-17] MEDS ORDERED: MORPHINE SULFATE 4 MG/ML SYRINGE IVP STA (16:15)
[2017-02-17] MEDS ORDERED: SODIUM CHLORIDE 0.9% 500 ML IV STA (16:15)
[2017-02-17 16:56] LABS: Basophils % (A) 0 %; CHCM 32.4; Eosinophils # (A) 0.2 k/uL (0-0.7); Eosinophils % (A) 2 %; HCT 40.4 % (34.0-46.0); HDW 2.64; Luc # (Auto) 0.12; Luc % (Auto) 1; Lymphocytes # (A) 2.6 k/uL (1.0-4.8); Lymphocytes % (A) 26 %; MCH 28.9 pg (25.0-35.0); MCHC 32.1 g/dL (31.0-37.0); Monocytes # (A) 0.6 k/uL (0-1.0); Monocytes % (A) 6 %; Neutrophils # (A) 6.4 k/uL (1.3-7.7); Neutrophils % (A) 65 %; RBC 4.49 m/uL (3.80-5.40); RDW 14.4 % (11.5-15.5); WBC 9.9 k/uL (3.8-10.6); WBC (Perox) 9.68
[2017-02-17 16:56] LABS: Appearance,Urine Clear (Clear); Bilirubin,Urine Negative (Negative); Glucose,Urine (UA) Negative (Negative); Ketones,Urine Negative (Negative); Leukocyte Esterase,Urine Small (Negative); Mucus,Urine Few /hpf; Nitrite,Urine Negative (Negative); PH, Urine 5.5 (5.0-8.0); Particle Count 4281; Protein,Urine Negative (Negative); Specific Gravity,Urine 1.028 (1.001-1.035); Squamous Epithelial Cell,Urine 1 /hpf (0-4); UA Billing (MACRO vs. MICRO) MICRO; Urobilinogen,Urine <2.0 mg/dL (<2.0); WBC,Urine 2 /hpf (0-5)
[2017-02-17 17:01] LABS: ALT 38 U/L (9-52); AST 48 U/L (14-36); Alkaline Phosphatase 95 U/L (38-126); Anion Gap 10 mmol/L; Blood Urea Nitrogen 14 mg/dL (7-17); Calcium 9.6 mg/dL (8.4-10.2); Carbon Dioxide 24 mmol/L (22-30); Chloride 106 mmol/L (98-107); Glucose 97 mg/dL (74-99); Non-African American GFR(MDRD) >60 (>60 ml/min/1.73 sqM); Potassium 4.2 mmol/L (3.5-5.1); Sodium 140 mmol/L (137-145); Total Bilirubin 0.2 mg/dL (0.2-1.3); Total Protein 7.4 g/dL (6.3-8.2)
--- NOTE | 2017-02-17 17:29 | CT ---
EXAMINATION TYPE: CT abdomen pelvis wo con DATE OF EXAM: 02/17/2017 COMPARISON: Previous study dated 1113 HISTORY: Back pain, pelvic pain and blood in stool. CT DLP: 1155.00 mGycm Automated exposure control for dose reduction was used. FINDINGS: There is a 4.5 mm nodule in the right middle lobe visualized portions of the lungs are othe rwise clear. There is no pleural or pericardial fluid. The heart is not enlarged. Within the abdomen, the liver, spleen and gallbladder are normal. Both adrenal glands are normal. There is no evidence of nephrolithiasis or hydronephrosis. The pancreas is not well-visualized. There is no significant retroperitoneal, iliac or inguinal adenopathy. The bladder is unremarkable. There is an IUCD within the uterus. There is a 2.2 cm cystic lesion in the right ovary. Left ovary is not definitely visualized. There is some mucosal thickening involving the mid sigmoid. The remainder the colon is unremarkable. The appendix is not visualized with certainty. There is no free fluid and no free air. Osseous structures are unremarkable.. IMPRESSION: 1. THERE IS SOME MUCOSAL THICKENING INVOLVING THE MID SIGMOID REGION. PLEASE CORRELATE FOR COLITIS. 2. 4.5 MM NODULE IN THE RIGHT MIDDLE LOBE.
[2017-02-17] MEDS ORDERED: KETOROLAC 30 MG/ML 1 ML VIAL IVP STA (17:59)
[2017-02-17 18:08] VITALS: PULSE 96
--- NOTE | 2017-02-17 18:14 | ED ---
Abdominal Pain HPI - General Chief Complaint: Abdominal Pain Stated Complaint: Back Pain, Blood in stool Time Seen by Provider: 02/17/17 15:39 Source: patient Mode of arrival: ambulatory Limitations: no limitations - History of Present Illness Initial Comments: 21-year-old -[place]og[place] female with a past medical history of asthma and hypertension as well as a previous section presented for evaluation of midline abdominal pain as well as midline back pain. She states that this started 5 days ago when she had sudden onset but moderate intensity low back pain with associated hematochezia. Her bowel movements also had large clots and the pain is continued and mildly progressed to the point where she is voluntarily constipated due to the pain of passing bowel movements. She denies any upper abdominal pain, nausea, vomiting, fevers, chills, chest pain, shortness of breath. There is no vaginal bleeding or discharge and she denies dysuria. She's never had similar symptoms as these before. She has not followed up with her primary care physician. - Related Data Home Medications Medication Instructions Recorded Confirmed Ibuprofen [Motrin] 400 mg PO Q6HR PRN 02/17/17 02/17/17 Previous Rx's Medication Instructions Recorded Ciprofloxacin HCl [Cipro] 500 mg PO Q12HR #20 tablet 02/17/17 HYDROcodone/APAP 5-325MG [[place] 1 - 2 tab PO Q6HR PRN #14 tab 02/17/17 5-325] Ibuprofen [Motrin] 800 mg PO Q6H #30 tab 02/17/17 metroNIDAZOLE [Flagyl] 500 mg PO Q8HR #30 tab 02/17/17 Allergies Allergy/AdvReac Type Severity Reaction Status Date / Time iodine Allergy Swelling Verified 02/17/17 15:53 Iodine and Iodide Containing Allergy Swelling Verified 02/17/17 15:53 Produc ragweed pollen Allergy Unknown Verified 02/17/17 15:53 Review of Systems ROS Statement: Those systems with pertinent positive or pertinent negative responses have been documented in the HPI. ROS Other: All systems not noted in ROS Statement are negative. Constitutional: Denies: fever, chills, weight change, night sweats Eyes: Denies: eye pain, vision change ENT: Denies: ear pain, throat pain Respiratory: Denies: cough, dyspnea Cardiovascular: Denies: chest pain, palpitations, dyspnea on exertion, orthopnea Endocrine: Denies: fatigue, polydipsia, polyuria Gastrointestinal: Reports: abdominal pain, hematochezia. Denies: nausea, vomiting, diarrhea, constipation, hematemesis, melena Genitourinary: Denies: urgency, dysuria Musculoskeletal: Reports: back pain. Denies: arthralgia, myalgia Skin: Denies: rash, lesions Neurological: Denies: headache, weakness, numbness, paresthesias Psychiatric: Denies: anxiety, depression Hematological/Lymphatic: Denies: easy bleeding, easy bruising Past Medical History Past Medical History: Asthma, Hypertension Additional Past Medical History / Comment(s): no inhaler History of Any Multi-Drug Resistant Organisms: None Reported Past Surgical History: Section Past Anesthesia/Blood Transfusion Reactions: No Reported Reaction Past Psychological History: ADD/ADHD, Anxiety, Bipolar, Depression, PTSD Smoking Status: Current every day smoker Past Alcohol Use History: None Reported Past Drug Use History: Marijuana - Past Family History Father History Unknown: Yes Mother History Unknown: Yes Family Medical History: Diabetes Mellitus, Deep Vein Thrombosis (DVT), Myocardial Infarction ([place]), Thyroid Disorder Additional Family Medical History / Comment(s): patient adopted General Exam Limitations: no limitations General appearance: alert, in no apparent distress Head exam: Present: atraumatic, normocephalic, normal inspection Eye exam: Present: normal appearance, PERRL, EOMI. Absent: scleral icterus, conjunctival injection, periorbital swelling ENT exam: Present: normal exam, mucous membranes moist Neck exam: Present: normal inspection. Absent: tenderness, meningismus, lymphadenopathy Respiratory exam: Present: normal lung sounds bilaterally. Absent: respiratory distress, wheezes, rales, rhonchi, stridor Cardiovascular Exam: Present: normal rhythm, tachycardia, normal heart sounds. Absent: systolic murmur, diastolic murmur, rubs, gallop, clicks GI/Abdominal exam: Present: soft, tenderness. Absent: distended, guarding, rebound, rigid, normal bowel sounds, diminished bowel sounds, hyperactive bowel sounds, hypoactive bowel sounds, organomegaly, mass, bruit, pulsatile mass, hernia Rectal exam: Present: deferred Extremities exam: Present: normal inspection, full ROM, normal capillary refill. Absent: tenderness, pedal edema, joint swelling, calf tenderness Back exam: Present: full ROM, tenderness. Absent: CVA tenderness (R), CVA tenderness (L), muscle spasm, vertebral tenderness Neurological exam: Present: alert, oriented X3, CN II-XII intact Psychiatric exam: Present: normal affect, normal mood Skin exam: Present: warm, dry, intact, normal color. Absent: rash Course Vital Signs 02/17/17 02/17/17 02/17/17 14:26 18:07 18:23 Temperature 98 F 99 F 98.1 F Pulse Rate 116 H 96 96 Respiratory 20 16 15 Rate Blood Pressure 131/70 119/64 109/57 O2 Sat by Pulse 100 100 99 Oximetry Medical Decision Making - Medical Decision Making 21-year-old Afro-[place] female with past medical history as noted above presented for evaluation of abdominal pain and low back pain for the last 5 days. There is been associated hematochezia with blood clots as well. On physical examination her abdomen is soft and tender to the suprapubic area without peritoneal signs of guarding, rigidity, rebound although she has lower lumbar back pain there is no saddle anesthesia, lower extremity weakness, or spinous process tenderness. Concern for intra-abdominal etiology related to the GI tract and will obtain CT abdomen and pelvis, labs, and provide pain control. Labs revealed no significant abnormalities over the CT abdomen and pelvis showed some mucosal thickening involving the mid sigmoid region. There is also 4.5 mm nodule in the right middle lobe. The patient was reevaluated and her pain had returned and she appeared mildly distressed. She was offered more pain control and agreed and also requested that she be given food. Patient tolerated by mouth challenge and was informed of all her results including the incidental finding of the lung nodule. She was informed she would be given oral antibiotics and advised to follow-up with her primary care physician. She is further advised to return to this facility if her symptoms should worsen or persist. The patient acknowledged an understanding of all information provided and agreed with this plan of care. - Lab Data Result diagrams: 02/17/17 16:36 02/17/17 16:36 Lab Results 02/17/17 02/17/17 02/17/17 Range/Units 16:36 16:36 16:40 WBC 9.9 (3.8-10.6) k/uL RBC 4.49 (3.80-5.40) m/uL Hgb 13.0 (11.4-16.0) gm/dL Hct 40.4 (34.0-46.0) % MCV 90.0 (80.0-100.0) fL MCH 28.9 (25.0-35.0) pg MCHC 32.1 (31.0-37.0) g/dL RDW 14.4 (11.5-15.5) % Plt Count 347 (150-450) k/uL Neutrophils % 65 % Lymphocytes % 26 % Monocytes % 6 % Eosinophils % 2 % Basophils % 0 % Neutrophils # 6.4 (1.3-7.7) k/uL Lymphocytes # 2.6 (1.0-4.8) k/uL Monocytes # 0.6 (0-1.0) k/uL Eosinophils # 0.2 (0-0.7) k/uL Basophils # 0.0 (0-0.2) k/uL Sodium 140 (137-145) mmol/L Potassium 4.2 (3.5-5.1) mmol/L Chloride 106 (98-107) mmol/L Carbon Dioxide 24 (22-30) mmol/L Anion Gap 10 mmol/L BUN 14 (7-17) mg/dL Creatinine 0.60 (0.52-1.04) mg/dL Est GFR (MDRD) Af Amer >60 (>60 ml/min/1.73 sqM) Est GFR (MDRD) Non-Af >60 (>60 ml/min/1.73 sqM) Glucose 97 (74-99) mg/dL Calcium 9.6 (8.4-10.2) mg/dL Total Bilirubin 0.2 (0.2-1.3) mg/dL AST 48 H (14-36) U/L ALT 38 (9-52) U/L Alkaline Phosphatase 95 (38-126) U/L Total Protein 7.4 (6.3-8.2) g/dL Albumin 4.1 (3.5-5.0) g/dL Lipase 53 (23-300) U/L Urine Color Urine Appearance (Clear) Urine pH (5.0-8.0) Ur Specific [place] (1.001-1.035) Urine Protein (Negative) Urine Glucose (UA) (Negative) Urine Ketones (Negative) Urine Blood (Negative) Urine Nitrite (Negative) Urine Bilirubin (Negative) Urine Urobilinogen (<2.0) mg/dL Ur Leukocyte Esterase (Negative) Urine WBC (0-5) /hpf Ur Squamous Epith Cells (0-4) /hpf Urine Mucus (None) /hpf Urine HCG, Qual Not Detected (Not Detectd) 02/17/17 Range/Units 16:40 WBC (3.8-10.6) k/uL RBC (3.80-5.40) m/uL Hgb (11.4-16.0) gm/dL Hct (34.0-46.0) % MCV (80.0-100.0) fL MCH (25.0-35.0) pg MCHC (31.0-37.0) g/dL RDW (11.5-15.5) % Plt Count (150-450) k/uL Neutrophils % % Lymphocytes % % Monocytes % % Eosinophils % % Basophils % % Neutrophils # (1.3-7.7) k/uL Lymphocytes # (1.0-4.8) k/uL Monocytes # (0-1.0) k/uL Eosinophils # (0-0.7) k/uL Basophils # (0-0.2) k/uL Sodium (137-145) mmol/L Potassium (3.5-5.1) mmol/L Chloride (98-107) mmol/L Carbon Dioxide (22-30) mmol/L Anion Gap mmol/L BUN (7-17) mg/dL Creatinine (0.52-1.04) mg/dL Est GFR (MDRD) Af Amer (>60 ml/min/1.73 sqM) Est GFR (MDRD) Non-Af (>60 ml/min/1.73 sqM) Glucose (74-99) mg/dL Calcium (8.4-10.2) mg/dL Total Bilirubin (0.2-1.3) mg/dL AST (14-36) U/L ALT (9-52) U/L Alkaline Phosphatase (38-126) U/L Total Protein (6.3-8.2) g/dL Albumin (3.5-5.0) g/dL Lipase (23-300) U/L Urine Color Yellow Urine Appearance Clear (Clear) Urine pH 5.5 (5.0-8.0) Ur Specific [place] 1.028 (1.001-1.035) Urine Protein Negative (Negative) Urine Glucose (UA) Negative (Negative) Urine Ketones Negative (Negative) Urine Blood Negative (Negative) Urine Nitrite Negative (Negative) Urine Bilirubin Negative (Negative) Urine Urobilinogen <2.0 (<2.0) mg/dL Ur Leukocyte Esterase Small H (Negative) Urine WBC 2 (0-5) /hpf Ur Squamous Epith Cells 1 (0-4) /hpf Urine Mucus Few H (None) /hpf Urine HCG, Qual (Not Detectd) Disposition Clinical Impression: Colitis Disposition: HOME SELF-CARE Condition: Stable Instructions: Infectious Colitis (ED), Colitis (ED) Additional Instructions: Please use medication as discussed. Please follow up with family doctor if symptoms have not improved over the next two days. Please return to the emergency room if your symptoms increase or worsen or for any other concerns. Prescriptions: Ciprofloxacin HCl [Cipro] 500 mg PO Q12HR #20 tablet HYDROcodone/APAP 5-325MG [[place] 5-325] 1 - 2 tab PO Q6HR PRN #14 tab PRN Reason: Analgesia Ibuprofen [Motrin] 800 mg PO Q6H #30 tab metroNIDAZOLE [Flagyl] 500 mg PO Q8HR #30 tab Referrals: Noel Walker MD [Primary Care Provider] - 1-2 days Time of Disposition: 18:13
[2017-02-17 18:25] VITALS: BP 109/57; RESP 15; TEMP 98.1
== END 2017-02-17 18:23 | disposition home or self-care (01) ==
LOC: EC 14:14
DX: K52.9 Noninfective gastroenteritis and colitis, unspecified (principal); M54.5 Low back pain; F17.200 Nicotine dependence, unspecified, uncomplicated; Z88.8 Allergy status to other drugs, medicaments and biological substances; Z91.048 Other nonmedicinal substance allergy status
CPT/HCPCS: 36415; 80053; 83690; 85025; 81001; 81025; 74176; 99284; 96374; 96375 ×2; 96361 ×2; J2270; J2405; J1885

== ENCOUNTER 2017-03-28 14:01 | Emergency (ER) | payer OTHER ==
[2017-03-28 14:13] VITALS: TEMP 98.7
[2017-03-28] MEDS ORDERED: SODIUM CHLORIDE 0.9% 500 ML IV STA (14:34)
[2017-03-28 14:46] LABS: Basophils # (A) 0.1 k/uL (0-0.2); Basophils % (A) 1 %; CH 29.4; CHCM 33.3; Eosinophils # (A) 0.2 k/uL (0-0.7); Eosinophils % (A) 2 %; HCT 40.7 % (34.0-46.0); HDW 3.02; HGB 13.4 gm/dL (11.4-16.0); Luc # (Auto) 0.25; Luc % (Auto) 3; Lymphocytes # (A) 2.8 k/uL (1.0-4.8); Lymphocytes % (A) 31 %; MCH 29.2 pg (25.0-35.0); MCHC 32.9 g/dL (31.0-37.0); MCV 88.7 fL (80.0-100.0); Mean Platelet Volume 6.4; Monocytes # (A) 0.4 k/uL (0-1.0); Monocytes % (A) 4 %; Neutrophils # (A) 5.4 k/uL (1.3-7.7); Neutrophils % (A) 60 %; RBC 4.59 m/uL (3.80-5.40); WBC 9.1 k/uL (3.8-10.6); WBC (Perox) 8.65
[2017-03-28 15:00] LABS: ALT 35 U/L (9-52); AST 22 U/L (14-36); Alkaline Phosphatase 96 U/L (38-126); Anion Gap 8 mmol/L; Blood Urea Nitrogen 15 mg/dL (7-17); Calcium 10.5 mg/dL (8.4-10.2); Carbon Dioxide 30 mmol/L (22-30); Chloride 103 mmol/L (98-107); Glucose 86 mg/dL (74-99); Non-African American GFR(MDRD) >60 (>60 ml/min/1.73 sqM); Potassium 4.6 mmol/L (3.5-5.1); Sodium 141 mmol/L (137-145); Total Bilirubin 0.2 mg/dL (0.2-1.3); Total Protein 9.3 g/dL (6.3-8.2)
[2017-03-28 15:06] LABS: Appearance,Urine Clear (Clear); Bilirubin,Urine Negative (Negative); Glucose,Urine (UA) Negative (Negative); Ketones,Urine Negative (Negative); Leukocyte Esterase,Urine Trace (Negative); Mucus,Urine Occasional /hpf; Nitrite,Urine Negative (Negative); PH, Urine 6.5 (5.0-8.0); Particle Count 3157; Protein,Urine Negative (Negative); RBC,Urine <1 /hpf (0-5); Specific Gravity,Urine 1.023 (1.001-1.035); Squamous Epithelial Cell,Urine 3 /hpf (0-4); UA Billing (MACRO vs. MICRO) MICRO; Urobilinogen,Urine <2.0 mg/dL (<2.0); WBC,Urine 2 /hpf (0-5)
--- NOTE | 2017-03-28 15:09 | ED ---
General Adult HPI - General Chief complaint: Abdominal Pain Stated complaint: Abd Pain Time Seen by Provider: 03/28/17 14:27 Source: patient, RN notes reviewed Mode of arrival: ambulatory Limitations: no limitations - History of Present Illness Initial comments: 21-year-old female presents emergency department with chief complaint of upper abdominal pain. She states that she has had this pain for the past 2 months or so. Patient states stabbing type pain. There is no nausea vomiting diarrhea. She's been here 3 times noticed told it was causing her pain and she wants to the answered. He denies any fever chills with this any diarrhea. Patient denies any changes in bowel or bladder habits. Patient denies any abdominal surgeries in the past. Patient states that he just needs to be answered. She states she called her family care doctor and he did not seem to take her pain seriously. Patient denies any recent fever, chills, shortness of breath, chest pain, back pain, nausea vomiting, numbness or tingling, dysuria or hematuria, constipation or diarrhea, headaches or visual changes, or any other current symptoms. - Related Data Previous Rx's Medication Instructions Recorded Dicyclomine [Bentyl] 10 mg PO TID #20 capsule 03/28/17 Allergies Allergy/AdvReac Type Severity Reaction Status Date / Time iodine Allergy Swelling Verified 03/28/17 15:00 Iodine and Iodide Containing Allergy Swelling Verified 03/28/17 15:00 Produc ragweed pollen Allergy Unknown Verified 03/28/17 15:00 Review of Systems ROS Statement: Those systems with pertinent positive or pertinent negative responses have been documented in the HPI. ROS Other: All systems not noted in ROS Statement are negative. Past Medical History Past Medical History: Asthma, Hypertension Additional Past Medical History / Comment(s): colitis History of Any Multi-Drug Resistant Organisms: None Reported Past Surgical History: Section Past Anesthesia/Blood Transfusion Reactions: No Reported Reaction Past Psychological History: ADD/ADHD, Anxiety, Bipolar, Depression, PTSD Smoking Status: Current every day smoker Past Alcohol Use History: None Reported Past Drug Use History: Marijuana - Past Family History Father History Unknown: Yes Mother History Unknown: Yes Family Medical History: Diabetes Mellitus, Deep Vein Thrombosis (DVT), Myocardial Infarction (VT), Thyroid Disorder Additional Family Medical History / Comment(s): patient adopted General Exam - General Exam Comments Initial Comments: General: The patient is awake and alert, in no distress, and does not appear acutely ill. Eye: Pupils are equal, round and reactive to light, extra-ocular movements are intact; there is normal conjunctiva bilaterally. No signs of icterus. Ears, nose, mouth and throat: There are moist mucous membranes. Neck: The neck is supple, there is no tenderness. Cardiovascular: There is a regular rate and rhythm. No murmur, rub or gallop is appreciated. Respiratory: Lungs are clear to auscultation, respirations are non-labored, breath sounds are equal. No wheezes, stridor, rales, or rhonchi. Gastrointestinal: Soft, non-distended, non-tender abdomen without masses or organomegaly noted. There is no rebound or guarding present. No CVA tenderness. Bowel sounds are unremarkable. Back: There is no tenderness to palpation in the midline. There is no obvious deformity. No rashes noted. Musculoskeletal: Normal ROM, no tenderness, There is no pedal edema. There is no calf tenderness or swelling. Sensation intact. Pulses equal bilaterally 2+. Neurological: CN II-XII intact, There are no obvious motor or sensory deficits. Coordination appears grossly intact. Speech is normal. Skin: Skin is warm and dry and no rashes or lesions are noted. Psychiatric: Cooperative, appropriate mood & affect, normal judgment. Limitations: no limitations Course Vital Signs 03/28/17 14:11 Temperature 98.7 F Pulse Rate 94 Respiratory 18 Rate Blood Pressure 108/69 O2 Sat by Pulse 100 Oximetry Medical Decision Making - Medical Decision Making 21-year-old female presents emergency department chief complaint of abdominal pain. At this time patient's previous images has been reviewed. This time lab work continues to be stable. At this time we discussed we will start her on Bentyl for home to help with the pain. We discussed that she needs to follow- up with GI and she is given Dr. Matamoros's information. We discussed return parameters and all the questions. She stated that she understood and she is in agreement with this plan. All questions have been answered. She will be discharged home at this time. - Lab Data Result diagrams: 03/28/17 14:33 03/28/17 14:33 Lab Results 03/28/17 03/28/17 03/28/17 Range/Units 14:33 14:33 14:35 WBC 9.1 (3.8-10.6) k/uL RBC 4.59 (3.80-5.40) m/uL Hgb 13.4 (11.4-16.0) gm/dL Hct 40.7 (34.0-46.0) % MCV 88.7 (80.0-100.0) fL MCH 29.2 (25.0-35.0) pg MCHC 32.9 (31.0-37.0) g/dL RDW 13.0 (11.5-15.5) % Plt Count 430 (150-450) k/uL Neutrophils % 60 % Lymphocytes % 31 % Monocytes % 4 % Eosinophils % 2 % Basophils % 1 % Neutrophils # 5.4 (1.3-7.7) k/uL Lymphocytes # 2.8 (1.0-4.8) k/uL Monocytes # 0.4 (0-1.0) k/uL Eosinophils # 0.2 (0-0.7) k/uL Basophils # 0.1 (0-0.2) k/uL Sodium 141 (137-145) mmol/L Potassium 4.6 (3.5-5.1) mmol/L Chloride 103 (98-107) mmol/L Carbon Dioxide 30 (22-30) mmol/L Anion Gap 8 mmol/L BUN 15 (7-17) mg/dL Creatinine 0.69 (0.52-1.04) mg/dL Est GFR (MDRD) Af Amer >60 (>60 ml/min/1.73 sqM) Est GFR (MDRD) Non-Af >60 (>60 ml/min/1.73 sqM) Glucose 86 (74-99) mg/dL Calcium 10.5 H (8.4-10.2) mg/dL Total Bilirubin 0.2 (0.2-1.3) mg/dL AST 22 (14-36) U/L ALT 35 (9-52) U/L Alkaline Phosphatase 96 (38-126) U/L Total Protein 9.3 H (6.3-8.2) g/dL Albumin 4.5 (3.5-5.0) g/dL Urine Color Urine Appearance (Clear) Urine pH (5.0-8.0) Ur Specific [place] (1.001-1.035) Urine Protein (Negative) Urine Glucose (UA) (Negative) Urine Ketones (Negative) Urine Blood (Negative) Urine Nitrite (Negative) Urine Bilirubin (Negative) Urine Urobilinogen (<2.0) mg/dL Ur Leukocyte Esterase (Negative) Urine RBC (0-5) /hpf Urine WBC (0-5) /hpf Ur Squamous Epith Cells (0-4) /hpf Urine Mucus (None) /hpf Urine HCG, Qual Not Detected (Not Detectd) 03/28/17 Range/Units 14:35 WBC (3.8-10.6) k/uL RBC (3.80-5.40) m/uL Hgb (11.4-16.0) gm/dL Hct (34.0-46.0) % MCV (80.0-100.0) fL MCH (25.0-35.0) pg MCHC (31.0-37.0) g/dL RDW (11.5-15.5) % Plt Count (150-450) k/uL Neutrophils % % Lymphocytes % % Monocytes % % Eosinophils % % Basophils % % Neutrophils # (1.3-7.7) k/uL Lymphocytes # (1.0-4.8) k/uL Monocytes # (0-1.0) k/uL Eosinophils # (0-0.7) k/uL Basophils # (0-0.2) k/uL Sodium (137-145) mmol/L Potassium (3.5-5.1) mmol/L Chloride (98-107) mmol/L Carbon Dioxide (22-30) mmol/L Anion Gap mmol/L BUN (7-17) mg/dL Creatinine (0.52-1.04) mg/dL Est GFR (MDRD) Af Amer (>60 ml/min/1.73 sqM) Est GFR (MDRD) Non-Af (>60 ml/min/1.73 sqM) Glucose (74-99) mg/dL Calcium (8.4-10.2) mg/dL Total Bilirubin (0.2-1.3) mg/dL AST (14-36) U/L ALT (9-52) U/L Alkaline Phosphatase (38-126) U/L Total Protein (6.3-8.2) g/dL Albumin (3.5-5.0) g/dL Urine Color Yellow Urine Appearance Clear (Clear) Urine pH 6.5 (5.0-8.0) Ur Specific [place] 1.023 (1.001-1.035) Urine Protein Negative (Negative) Urine Glucose (UA) Negative (Negative) Urine Ketones Negative (Negative) Urine Blood Small H (Negative) Urine Nitrite Negative (Negative) Urine Bilirubin Negative (Negative) Urine Urobilinogen <2.0 (<2.0) mg/dL Ur Leukocyte Esterase Trace H (Negative) Urine RBC <1 (0-5) /hpf Urine WBC 2 (0-5) /hpf Ur Squamous Epith Cells 3 (0-4) /hpf Urine Mucus Occasional H (None) /hpf Urine HCG, Qual (Not Detectd) - Radiology Data Radiology results: report reviewed, image reviewed Disposition Clinical Impression: Abdominal pain Disposition: HOME SELF-CARE Condition: Stable Instructions: Abdominal Pain (ED) Additional Instructions: Please use medication as discussed. Please follow up with family doctor if symptoms have not improved over the next two days. Please return to the emergency room if your symptoms increase or worsen or for any other concerns. Prescriptions: Dicyclomine [Bentyl] 10 mg PO TID #20 capsule Referrals: Noel Walker MD [Primary Care Provider] - 1-2 days Estela Chung MD [STAFF PHYSICIAN] - 1-2 days Time of Disposition: 15:42
[2017-03-28] MEDS ORDERED: KETOROLAC 30 MG/ML 1 ML VIAL IVP STA (15:35)
--- NOTE | 2017-03-28 15:37 | XR ---
EXAMINATION TYPE: XR abdomen 2V DATE OF EXAM: 03/28/2017 COMPARISON: 11/26/2015 INDICATION: Abdominal pain TECHNIQUE: Abdomen is examined in the supine and upright views. FINDINGS: There is a nonspecific bowel gas pattern. Air is within the colon as well as a few small bowel loops. No free air is evident. No suspicious differential air-fluid levels are present. There is an IUD within the pelvis. No mass effect is evident. Organomegaly is not present. Psoas margins are normal. IMPRESSION: 1. Nonspecific abdomen.
[2017-03-28 15:55] VITALS: BP 110/74; PULSE 92; RESP 17
== END 2017-03-28 15:54 | disposition home or self-care (01) ==
LOC: EC 14:01
DX: R10.10 Upper abdominal pain, unspecified (principal); F17.200 Nicotine dependence, unspecified, uncomplicated; Z91.048 Other nonmedicinal substance allergy status
CPT/HCPCS: 36415; 80053; 85025; 81001; 81025; 74020; 99284; 96374; 96361; J1885

== ENCOUNTER 2018-01-27 02:15 | Emergency (ER) | payer OTHER ==
[2018-01-27 02:25] VITALS: RESP 20
[2018-01-27] MEDS ORDERED: predniSONE 50 MG TAB PO STA (03:32)
[2018-01-27] MEDS ORDERED: IPRATROPIUM-ALBUTEROL 3 ML NEB INHALATION STA (03:32)
--- NOTE | 2018-01-27 03:51 | ED ---
URI HPI - General Chief Complaint: Upper Respiratory Infection Stated Complaint: CONGESTION Time Seen by Provider: 01/27/18 02:47 Source: patient Mode of arrival: ambulatory Limitations: no limitations - History of Present Illness Initial Comments: 22-year-old female patient presents to the emergency department today for complaints of cough, nasal congestion, and sore throat. Patient states she's had symptoms for the last 5 days. Patient states that her cough is becoming more severe. She is coughing up clear yellow sputum. Patient states she hasn' t had any fevers but she has felt chilled. States that she is becoming more short of breath. States that she's had use her rescue inhaler more than usual. Patient states she does have a history of asthma but doesn't take any other medications other than the albuterol for it. She denies any nausea, vomiting, abdominal pain hematuria, dysuria, urinary frequency, urinary urgency, or chance of . Patient denies any recent rash, chest pain, diarrhea, constipation, back pain, numbness, tingling, dizziness, weakness, headache, visual changes, or any other complaints. - Related Data Previous Rx's Medication Instructions Recorded Dicyclomine [Bentyl] 10 mg PO TID #20 capsule 03/28/17 Guaifenesin/Dextromethorphan 1 each PO BID #10 tab.er.12h 01/27/18 [Mucinex Dm ER 1,200-60 mg Tab] predniSONE 50 mg PO DAILY #5 tablet 01/27/18 Allergies Allergy/AdvReac Type Severity Reaction Status Date / Time iodine Allergy Swelling Verified 03/28/17 15:00 Iodine and Iodide Containing Allergy Swelling Verified 03/28/17 15:00 Produc ragweed pollen Allergy Unknown Verified 03/28/17 15:00 Review of Systems ROS Statement: Those systems with pertinent positive or pertinent negative responses have been documented in the HPI. ROS Other: All systems not noted in ROS Statement are negative. Past Medical History Past Medical History: Asthma, Hypertension Additional Past Medical History / Comment(s): colitis History of Any Multi-Drug Resistant Organisms: None Reported Past Surgical History: Section Past Anesthesia/Blood Transfusion Reactions: No Reported Reaction Past Psychological History: ADD/ADHD, Anxiety, Bipolar, Depression, PTSD Smoking Status: Current every day smoker Past Alcohol Use History: None Reported Past Drug Use History: Marijuana - Past Family History Father History Unknown: Yes Mother History Unknown: Yes Family Medical History: Diabetes Mellitus, Deep Vein Thrombosis (DVT), Myocardial Infarction (ID), Thyroid Disorder Additional Family Medical History / Comment(s): patient adopted General Exam Limitations: no limitations General appearance: alert, in no apparent distress, other (This is a well- developed, well-nourished adult female patient in no acute distress vital signs upon presentation are temperature 98.5F, pulse 101, respirations 20, blood pressure 118/67, pulse ox 100% on room air.) Eye exam: Present: normal appearance, PERRL, EOMI. Absent: scleral icterus, conjunctival injection, periorbital swelling ENT exam: Present: normal exam, normal oropharynx, mucous membranes moist Respiratory exam: Present: wheezes (Scattered expiratory wheezing, mild). Absent: normal lung sounds bilaterally, respiratory distress, rales, rhonchi, stridor Cardiovascular Exam: Present: regular rate, normal rhythm, normal heart sounds. Absent: systolic murmur, diastolic murmur, rubs, gallop, clicks GI/Abdominal exam: Present: soft, normal bowel sounds. Absent: distended, tenderness, guarding, rebound, rigid Neurological exam: Present: alert, oriented X3, CN II-XII intact Psychiatric exam: Present: normal affect, normal mood Skin exam: Present: warm, dry, intact, normal color. Absent: rash Course Vital Signs 01/27/18 01/27/18 01/27/18 02:21 04:05 04:14 Temperature 98.5 F Pulse Rate 101 H 100 104 H Respiratory 20 Rate Blood Pressure 118/67 O2 Sat by Pulse 100 Oximetry 01/27/18 05:09 Temperature 98.4 F Pulse Rate 87 Respiratory 20 Rate Blood Pressure 125/84 O2 Sat by Pulse 99 Oximetry Medical Decision Making - Medical Decision Making 22-year-old female patient presents to emergency department today for complaints of cough and congestion. Physical examination did reveal some mild scattered expiratory wheezes in the posterior lung garcia. Patient did also have nasal congestion and hoarse voice. Chest x-ray showed no acute cardiopulmonary process. Patient symptoms are consistent with acute bronchitis. She'll be treated with oral steroids and Mucinex DM. She is instructed to increase fluids and to rest. She is instructed to follow-up with the primary care physician for recheck in 1-2 days. Patient does not currently have one so she was recommended to Dr. Infante. Return parameters were discussed in detail. She verbalizes understanding and agrees with this plan. - Radiology Data Radiology results: report reviewed, image reviewed Two-view x-ray of the chest is obtained. Heart min Starmer normal. Lungs are clear. Diaphragm is normal. Bony thorax appears normal. Impression by Dr. Isaac shows normal chest with no change. Disposition Clinical Impression: Acute bronchitis Disposition: HOME SELF-CARE Condition: Good Instructions: Upper Respiratory Infection (ED), Acute Bronchitis (ED) Additional Instructions: Increase fluids. Take medications as directed. Follow-up with your primary care physician for recheck in 1-2 days. Return here immediately for any new, worsening, or concerning symptoms per Prescriptions: Guaifenesin/Dextromethorphan [Mucinex Dm ER 1,200-60 mg Tab] 1 each PO BID #10 tab.er.12h predniSONE 50 mg PO DAILY #5 tablet Is patient prescribed a controlled substance at d/c from ED?: No Referrals: Katie Infante MD [STAFF PHYSICIAN] - 1-2 days Time of Disposition: 04:33
--- NOTE | 2018-01-27 04:09 | XR ---
EXAMINATION TYPE: XR chest 2V DATE OF EXAM: 01/27/2018 COMPARISON: 02/12/2015 HISTORY: Chest pain TECHNIQUE: Frontal and lateral views of the chest are obtained. FINDINGS: Heart and mediastinum are normal. Lungs are clear. Diaphragm is normal. Bony thorax appear s normal. IMPRESSION: Normal chest. No change.
[2018-01-27] MEDS ORDERED: guaiFENesin-DM 600/30MG 1 EACH TAB.ER.12H PO STA (04:33)
[2018-01-27 05:11] VITALS: BP 125/84; PULSE 87; TEMP 98.4
== END 2018-01-27 05:11 | disposition home or self-care (01) ==
LOC: EC 02:15
DX: J20.9 Acute bronchitis, unspecified (principal); J45.909 Unspecified asthma, uncomplicated; J02.9 Acute pharyngitis, unspecified; F17.200 Nicotine dependence, unspecified, uncomplicated; Z79.899 Other long term (current) drug therapy; Z91.048 Other nonmedicinal substance allergy status
CPT/HCPCS: 94640; 71046; 99285; J7512

== ENCOUNTER 2018-08-02 21:35 | Emergency (ER) | payer OTHER ==
[2018-08-02 21:54] VITALS: BP 139/78
[2018-08-02 22:12] VITALS: RESP 16
[2018-08-02] MEDS ORDERED: ALBUTEROL NEBULIZED 2.5 MG/3 ML INHALATION STA (22:21)
[2018-08-02] MEDS ORDERED: methylPREDNISolone SOD SUCCI 125 MG/2 ML VIAL IM ONE (22:21)
--- NOTE | 2018-08-02 22:30 | XR ---
EXAM: XR Chest, 2 Views CLINICAL HISTORY: Pain TECHNIQUE: Frontal and lateral views of the chest. COMPARISON: Chest x-ray dated 01/27/2018 FINDINGS: Lungs: Unremarkable. No consolidation. Pleural space: Unremarkable. No pneumothorax. Heart: Unremarkable. No cardiomegaly. Mediastinum: Unremarkable. Bones/joints: Unremarkable. IMPRESSION: Normal chest x-rays.
--- NOTE | 2018-08-02 23:57 | ED ---
URI HPI - General Chief Complaint: Upper Respiratory Infection Stated Complaint: URI Source: patient Mode of arrival: ambulatory Limitations: no limitations - History of Present Illness Initial Comments: 22-year-old female presenting today for chief complaint of sore throat. Patient states she has had sore throat, mild cough and right ear pain for the past week. Patient states she felt a pop in her ear earlier in the week. Patient states she has had some muffled hearing sounds. Patient states her throat feels "raw". Patient denies any d difficulty swallowing. Patient states she does have history of asthma and has had some dyspnea on exertion increased from her baseline. She states she has used her rescue inhaler. Patient denies any chest pain, dyspnea rest, nausea vomiting, abdominal pain, leg swelling, fever, chills, night sweats. Patient appears well, no signs of acute distress upon arrival. VS WNL. - Related Data Previous Rx's Medication Instructions Recorded Dicyclomine [Bentyl] 10 mg PO TID #20 capsule 03/28/17 Guaifenesin/Dextromethorphan 1 each PO BID #10 tab.er.12h 01/27/18 [Mucinex Dm ER 1,200-60 mg Tab] predniSONE 50 mg PO DAILY #5 tablet 01/27/18 predniSONE 20 mg PO DAILY 4 Days #4 tab 08/03/18 Allergies Allergy/AdvReac Type Severity Reaction Status Date / Time iodine Allergy Swelling Verified 08/02/18 21:54 Iodine and Iodide Containing Allergy Swelling Verified 08/02/18 21:54 Produc ragweed pollen Allergy Unknown Verified 08/02/18 21:54 Review of Systems ROS Statement: Those systems with pertinent positive or pertinent negative responses have been documented in the HPI. ROS Other: All systems not noted in ROS Statement are negative. Past Medical History Past Medical History: Asthma, Hypertension Additional Past Medical History / Comment(s): colitis History of Any Multi-Drug Resistant Organisms: None Reported Past Surgical History: Section Past Anesthesia/Blood Transfusion Reactions: No Reported Reaction Past Psychological History: ADD/ADHD, Anxiety, Bipolar, Depression, PTSD Smoking Status: Current every day smoker Past Alcohol Use History: None Reported Past Drug Use History: Marijuana - Past Family History Father History Unknown: Yes Mother History Unknown: Yes Family Medical History: Diabetes Mellitus, Deep Vein Thrombosis (DVT), Myocardial Infarction ([place]), Thyroid Disorder Additional Family Medical History / Comment(s): patient adopted General Exam - General Exam Comments Initial Comments: General: The patient is awake and alert, in no distress, and does not appear acutely ill. Eye: +3 mm pupils are equal, round and reactive to light, extra-ocular movements are intact. No nystagmus. There is normal conjunctiva bilaterally. No signs of icterus. No photophobia Ears, nose, mouth and throat: There are moist mucous membranes and no oral lesions. Oropharynx was not erythematous there is no tonsillar enlargement exudates or lesions. Uvula midline. Tympanic membranes on the right side has small healing performation. The TMs are not erythematous or is no effusions bulging or retraction. No tenderness to palpation of the mastoid. No anterior cervical lymphadenopathy. Rhinorrhea, clear and bilateral nares. No tripoding, no drooling. Neck: The neck is supple, there is no tenderness or JVD. No nuchal rigidity negative Brudzinski and Kernig Cardiovascular: There is a regular rate and rhythm. No murmur, rub or gallop is appreciated. Respiratory: Lungs are clear to auscultation, respirations are non-labored, breath sounds are equal. Mild expiratory wheeze. stridor, rales, or rhonchi. No retractions or abdominal breathing. Gastrointestinal: Soft, non-distended, non-tender abdomen without masses or organomegaly noted. There is no rebound or guarding present. Bowel sounds are unremarkable. Musculoskeletal: Normal ROM, no tenderness. Strength 5/5. Sensation intact. Radial pulses equal bilaterally 2+. Neurological: A&O x 3. CN II-XII intact, There are no obvious motor or sensory deficits. Coordination appears grossly intact. Speech appears normal, no muffling. Skin: Skin is warm and dry and no rashes or lesions are noted. No extremity edema Psychiatric: Cooperative Limitations: no limitations Course Vital Signs 08/02/18 08/02/18 08/02/18 21:50 22:11 23:42 Temperature 98.2 F Pulse Rate 84 84 Respiratory 18 16 Rate Blood Pressure 139/78 O2 Sat by Pulse 100 Oximetry 08/02/18 08/03/18 23:51 00:09 Temperature 98.1 F Pulse Rate 84 91 Respiratory 16 Rate Blood Pressure O2 Sat by Pulse 98 Oximetry Medical Decision Making - Medical Decision Making Well-appearing 22-year-old feel presenting for sore throat, right ear pain. membrane revealed perforation of the right side that is healing. No effusion erythema or traction. Throat mildly erythematous. Mild tonsillar enlargement no exudates. No tripoding or muffled voice. Strep testing negative. Patient admitted to cough history of asthma. Patient has been using a rescue inhaler more frequent recently. Mild expiratory wheeze and exam. Patient given one albuterol treatment. Pt states she feels like she is breathig much better, requesting discharge. Pt will be discharge with RX for steroids, and f/u with primary care provider. Pt agreeable with plan and discharge at this time. Return parameters were discussed at length the patient who verbalized understanding. - Lab Data Lab Results 08/02/18 Range/Units 22:00 Group A Strep Rapid Negative (Negative) Disposition Clinical Impression: URI (upper respiratory infection), Tympanic membrane perforation Disposition: HOME SELF-CARE Condition: Good Instructions (If sedation given, give patient instructions): Upper Respiratory Infection (ED) Additional Instructions: Please use medication as discussed. Please follow-up with family doctor in the next 2 days of symptoms have not improved. Please return to emergency room if the symptoms increase or worsen or for any other concerns. Prescriptions: predniSONE 20 mg PO DAILY 4 Days #4 tab Is patient prescribed a controlled substance at d/c from ED?: No Referrals: None,Stated [Primary Care Provider] - [facility]2 days Time of Disposition: 00:05
[2018-08-03 00:11] VITALS: PULSE 91; TEMP 98.1
== END 2018-08-03 00:10 | disposition home or self-care (01) ==
LOC: EC 21:35
DX: J06.9 Acute upper respiratory infection, unspecified (principal); H72.91 Unspecified perforation of tympanic membrane, right ear; J45.909 Unspecified asthma, uncomplicated; F17.200 Nicotine dependence, unspecified, uncomplicated; Z91.048 Other nonmedicinal substance allergy status; Z91.09 Other allergy status, other than to drugs and biological substances
CPT/HCPCS: 94640; 87081; 87430; 71046; 99284; 96372; J2930

== ENCOUNTER 2018-08-09 14:36 | Emergency (ER) | payer OTHER ==
[2018-08-09 14:53] VITALS: BP 125/84; PULSE 77; RESP 16; TEMP 98.3
[2018-08-09] MEDS ORDERED: ACET/COD 300 MG/30 MG STARTER PACK 6 TAB BTL PO STA (15:12)
--- NOTE | 2018-08-09 15:12 | ED ---
ENT HPI - General Chief complaint: Dental/Oral Stated complaint: DENTAL PAIN Time Seen by Provider: 08/09/18 14:56 Source: patient, RN notes reviewed Mode of arrival: ambulatory Limitations: no limitations - History of Present Illness Initial comments: 22-year-old female presents emergency Department with chief complaint of dental pain. Patient has bad dentition states that there is broken tooth on the upper right. Last 48 hours she's had increase in pain. She has not seen a dentist for this fevers or chills noted trismus. - Related Data Previous Rx's Medication Instructions Recorded Ibuprofen [Motrin] 600 mg PO Q8HR PRN #30 tab 08/09/18 Penicillin V Potassium [Pen Vee K] 500 mg PO QID #40 tablet 08/09/18 Allergies Allergy/AdvReac Type Severity Reaction Status Date / Time iodine Allergy Swelling Verified 08/09/18 14:53 Iodine and Iodide Containing Allergy Swelling Verified 08/09/18 14:53 Produc ragweed pollen Allergy Unknown Verified 08/09/18 14:53 Review of Systems ROS Statement: Those systems with pertinent positive or pertinent negative responses have been documented in the HPI. ROS Other: All systems not noted in ROS Statement are negative. Past Medical History Past Medical History: Asthma, Hypertension Additional Past Medical History / Comment(s): colitis History of Any Multi-Drug Resistant Organisms: None Reported Past Surgical History: Section Past Anesthesia/Blood Transfusion Reactions: No Reported Reaction Past Psychological History: ADD/ADHD, Anxiety, Bipolar, Depression, PTSD Smoking Status: Current every day smoker Past Alcohol Use History: None Reported Past Drug Use History: Marijuana - Past Family History Father History Unknown: Yes Mother History Unknown: Yes Family Medical History: Diabetes Mellitus, Deep Vein Thrombosis (DVT), Myocardial Infarction ([place]), Thyroid Disorder Additional Family Medical History / Comment(s): patient adopted General Exam Limitations: no limitations General appearance: alert, in no apparent distress Head exam: Present: atraumatic, normocephalic, normal inspection Eye exam: Present: normal appearance, PERRL, EOMI. Absent: scleral icterus, conjunctival injection, periorbital swelling ENT exam: Present: mucous membranes moist, TM's normal bilaterally, normal external ear exam. Absent: normal oropharynx (Dental fracture, dental caries noted no drainable abscess) Neck exam: Present: normal inspection. Absent: tenderness, meningismus, lymphadenopathy Respiratory exam: Present: normal lung sounds bilaterally. Absent: respiratory distress, wheezes, rales, rhonchi, stridor Cardiovascular Exam: Present: regular rate, normal rhythm, normal heart sounds. Absent: systolic murmur, diastolic murmur, rubs, gallop, clicks Course Vital Signs 08/09/18 14:51 Temperature 98.3 F Pulse Rate 77 Respiratory 16 Rate Blood Pressure 125/84 O2 Sat by Pulse 99 Oximetry Medical Decision Making - Medical Decision Making 22-year-old female presented for dental pain. Patient has dental fracture. Increasing pain concern for infection. Patient will be given antibiotics, pain medication advised to follow-up with dental clinic or dentist Disposition Clinical Impression: Dental caries, Fracture of tooth Disposition: HOME SELF-CARE Condition: Stable Instructions (If sedation given, give patient instructions): Toothache (ED) Additional Instructions: Please return to the Emergency Department if symptoms worsen or any other concerns. Prescriptions: Ibuprofen [Motrin] 600 mg PO Q8HR PRN #30 tab PRN Reason: Pain Penicillin V Potassium [Pen Vee K] 500 mg PO QID #40 tablet Is patient prescribed a controlled substance at d/c from ED?: No Referrals: [facility] [Primary Care Provider] - 1-2 days Time of Disposition: 15:12
== END 2018-08-09 15:20 | disposition home or self-care (01) ==
LOC: EC 14:36
DX: S02.5XXA Fracture of tooth (traumatic), initial encounter for closed fracture (principal); K02.9 Dental caries, unspecified; R25.2 Cramp and spasm; F17.200 Nicotine dependence, unspecified, uncomplicated; Z87.19 Personal history of other diseases of the digestive system; Z91.048 Other nonmedicinal substance allergy status; X58.XXXA Exposure to other specified factors, initial encounter
CPT/HCPCS: 99282

== ENCOUNTER 2018-08-15 11:35 | Emergency (ER) | payer OTHER ==
[2018-08-15 12:07] VITALS: RESP 20
[2018-08-15] MEDS ORDERED: DEXAMETHASONE SOD PHOSPHATE 10 MG/ML 1 ML VIAL IM STA (12:44)
--- NOTE | 2018-08-15 12:48 | ED ---
ENT HPI - General Chief complaint: ENT Stated complaint: trouble swallowing Time Seen by Provider: 08/15/18 12:34 Source: patient, RN notes reviewed Mode of arrival: ambulatory Limitations: no limitations - History of Present Illness Initial comments: 22-year-old female presents emergency from she went sore throat. Patient states that it started last 24 hours. Patient states her tonsils are swollen. No prior surgeries. Denies any sick contacts. Patient states that she's had a slight fever. Mild nasal congestion. Denies cough, chest congestion. Denies any chest pain or shortness breath. Patient offers no complaints. - Related Data Previous Rx's Medication Instructions Recorded Ibuprofen [Motrin] 600 mg PO Q8HR PRN #30 tab 08/09/18 Penicillin V Potassium [Pen Vee K] 500 mg PO QID #40 tablet 08/09/18 Amoxicillin 500 mg PO Q8H #30 capsule 08/15/18 Ibuprofen [Motrin] 600 mg PO Q8HR PRN #30 tab 08/15/18 Allergies Allergy/AdvReac Type Severity Reaction Status Date / Time iodine Allergy Swelling Verified 08/15/18 12:07 Iodine and Iodide Containing Allergy Swelling Verified 08/15/18 12:07 Produc ragweed pollen Allergy Unknown Verified 08/15/18 12:07 Review of Systems ROS Statement: Those systems with pertinent positive or pertinent negative responses have been documented in the HPI. ROS Other: All systems not noted in ROS Statement are negative. Past Medical History Past Medical History: Asthma, Hypertension Additional Past Medical History / Comment(s): colitis History of Any Multi-Drug Resistant Organisms: None Reported Past Surgical History: Section Past Anesthesia/Blood Transfusion Reactions: No Reported Reaction Past Psychological History: ADD/ADHD, Anxiety, Bipolar, Depression, PTSD Smoking Status: Current every day smoker Past Alcohol Use History: None Reported Past Drug Use History: Marijuana - Past Family History Father History Unknown: Yes Mother History Unknown: Yes Family Medical History: Diabetes Mellitus, Deep Vein Thrombosis (DVT), Myocardial Infarction ([place]), Thyroid Disorder Additional Family Medical History / Comment(s): patient adopted General Exam Limitations: no limitations General appearance: alert, in no apparent distress Head exam: Present: atraumatic, normocephalic, normal inspection Eye exam: Present: normal appearance, PERRL, EOMI. Absent: scleral icterus, conjunctival injection, periorbital swelling ENT exam: Present: mucous membranes moist, TM's normal bilaterally, normal external ear exam. Absent: normal oropharynx (Edematous and erythematous tonsils noted, swallowing secretions well) Neck exam: Present: normal inspection, full ROM, lymphadenopathy. Absent: tenderness, meningismus Respiratory exam: Present: normal lung sounds bilaterally. Absent: respiratory distress, wheezes, rales, rhonchi, stridor Cardiovascular Exam: Present: regular rate, normal rhythm, normal heart sounds. Absent: systolic murmur, diastolic murmur, rubs, gallop, clicks Course Vital Signs 08/15/18 12:04 Temperature 97.6 F Pulse Rate 92 Respiratory 20 Rate Blood Pressure 127/89 O2 Sat by Pulse 99 Oximetry Medical Decision Making - Medical Decision Making 22-year-old female presented for sore throat, swollen tonsils. Patient we treated for tonsillitis. Patient was given a dose of Decadron emergency department. Patient we discharged Disposition Clinical Impression: Tonsillitis Disposition: HOME SELF-CARE Condition: Stable Instructions (If sedation given, give patient instructions): Tonsillitis (ED) Additional Instructions: Please return to the Emergency Department if symptoms worsen or any other concerns. Prescriptions: Amoxicillin 500 mg PO Q8H #30 capsule Ibuprofen [Motrin] 600 mg PO Q8HR PRN #30 tab PRN Reason: Pain Is patient prescribed a controlled substance at d/c from ED?: No Referrals: [facility] [Primary Care Provider] - 1-2 days Time of Disposition: 12:47
[2018-08-15 13:31] VITALS: BP 125/86; PULSE 89; TEMP 98.6
== END 2018-08-15 13:31 | disposition home or self-care (01) ==
LOC: EC 11:35
DX: J03.90 Acute tonsillitis, unspecified (principal); F17.200 Nicotine dependence, unspecified, uncomplicated; Z88.8 Allergy status to other drugs, medicaments and biological substances; Z91.09 Other allergy status, other than to drugs and biological substances
CPT/HCPCS: 99283; 96372; J1100

== ENCOUNTER 2018-10-19 05:04 | Emergency (ER) | payer OTHER ==
[2018-10-19 05:49] LABS: Basophils % (A) 0 %; Eosinophils # (A) 0.2 k/uL (0-0.7); Eosinophils % (A) 3 %; HCT 34.5 % (34.0-46.0); HGB 11.4 gm/dL (11.4-16.0); Lymphocytes # (A) 2.9 k/uL (1.0-4.8); Lymphocytes % (A) 40 %; MCH 29.8 pg (25.0-35.0); MCHC 33.2 g/dL (31.0-37.0); MCV 89.7 fL (80.0-100.0); Mean Platelet Volume 7.7; Monocytes # (A) 0.3 k/uL (0-1.0); Monocytes % (A) 5 %; Neutrophils # (A) 3.7 k/uL (1.3-7.7); Neutrophils % (A) 51 %; Platelet Count 275 k/uL (150-450); RBC 3.84 m/uL (3.80-5.40); RDW 14.3 % (11.5-15.5); WBC 7.2 k/uL (3.8-10.6)
[2018-10-19 05:50] LABS: Appearance,Urine Clear (Clear); Bilirubin,Urine Negative (Negative); Blood,Urine Negative (Negative); Color,Urine Light Yellow; Glucose,Urine (UA) Negative (Negative); Ketones,Urine Negative (Negative); Leukocyte Esterase,Urine Negative (Negative); Nitrite,Urine Negative (Negative); PH, Urine 6.5 (5.0-8.0); Protein,Urine Negative (Negative); Specific Gravity,Urine 1.013 (1.001-1.035); Urobilinogen,Urine <2.0 mg/dL (<2.0)
[2018-10-19 06:02] LABS: ALT 27 U/L (9-52); AST 20 U/L (14-36); African American GFR (CKD) >90 (>60 ml/min/1.73 sqM); Albumin 3.8 g/dL (3.5-5.0); Alkaline Phosphatase 73 U/L (38-126); Amylase 65 U/L (30-110); Anion Gap 8 mmol/L; Blood Urea Nitrogen 14 mg/dL (7-17); Calcium 9.4 mg/dL (8.4-10.2); Carbon Dioxide 25 mmol/L (22-30); Chloride 105 mmol/L (98-107); Glucose 103 mg/dL (74-99); Lipase 88 U/L (23-300); Potassium 4.1 mmol/L (3.5-5.1); Sodium 138 mmol/L (137-145); Total Bilirubin 0.1 mg/dL (0.2-1.3); Total Protein 6.8 g/dL (6.3-8.2)
[2018-10-19] MEDS ORDERED: MORPHINE SULFATE 4 MG/ML SYRINGE IV STA (07:05)
--- NOTE | 2018-10-19 07:06 | CT ---
EXAMINATION TYPE: CT brain wo con DATE OF EXAM: 10/19/2018 COMPARISON: CT brain February 12, 2015 HISTORY: Severe acute onset migraine headache. CT DLP: 1099.4 mGycm. Automated Exposure Control for Dose Reduction was Utilized. TECHNIQUE: CT scan of the head is performed without contrast. FINDINGS: There is no acute intracranial hemorrhage, mass effect, or midline shift identified. The ventricles and sulci are within normal limits in size. Romero-white matter differentiation is maintain ed. Mild mucosal thickening right maxillary sinus axial image 1 otherwise sinuses are clear. The glob es are intact bilaterally. IMPRESSION: No acute intracranial hemorrhage or midline shift is seen.
--- NOTE | 2018-10-19 07:15 | ED ---
Headache HPI - General Chief Complaint: Headache Stated Complaint: Migraine Time Seen by Provider: 10/19/18 05:25 Mode of arrival: ambulatory Limitations: no limitations - History of Present Illness Initial Comments: This patient is 23-year-old woman who presents to be evaluated for what she is referring to as a migraine. She states that it has come on in the evening gradually. She states that it is not different than previous headaches though she states she does not commonly get these. She has not had fever or chills. No neck symptoms. No neurologic symptoms. She does have some accompanying photophobia and nausea. MD Complaint: "migraine" -: hour(s) Onset Description: gradual Location: frontal Severity: severe Quality: similar to previous headaches Consistency: constant Improves With: nothing Worsens With: none Context: occurred at rest Associated Symptoms: nausea, photophobia Treatments Prior to Arrival: none - Related Data Home Medications Medication Instructions Recorded Confirmed Albuterol Inhaler [Ventolin Hfa 2 puff INHALATION RT-Q6H PRN 10/19/18 10/20/18 Inhaler] Previous Rx's Medication Instructions Recorded Ibuprofen [Motrin] 600 mg PO Q8HR PRN #30 tab 08/15/18 Clindamycin [Cleocin] 450 mg PO Q8H 7 Days #63 capsule 10/20/18 Allergies Allergy/AdvReac Type Severity Reaction Status Date / Time iodine Allergy Swelling Verified 10/20/18 08:12 Iodine and Iodide Containing Allergy Swelling Verified 10/20/18 08:12 Produc ragweed pollen Allergy Unknown Verified 10/20/18 08:12 Review of Systems ROS Statement: Those systems with pertinent positive or pertinent negative responses have been documented in the HPI. ROS Other: All systems not noted in ROS Statement are negative. Constitutional: Denies: fever, chills, weakness Eyes: Denies: vision change Respiratory: Denies: cough Cardiovascular: Denies: chest pain Gastrointestinal: Reports: nausea. Denies: abdominal pain, vomiting Skin: Denies: rash Neurological: Reports: headache. Denies: weakness, numbness, paresthesias, confusion, abnormal gait Hematological/Lymphatic: Denies: easy bleeding Past Medical History Past Medical History: Asthma, Hypertension Additional Past Medical History / Comment(s): colitis History of Any Multi-Drug Resistant Organisms: None Reported Past Surgical History: Section Past Anesthesia/Blood Transfusion Reactions: No Reported Reaction Past Psychological History: ADD/ADHD, Anxiety, Bipolar, Depression, PTSD Smoking Status: Current every day smoker Past Alcohol Use History: None Reported Past Drug Use History: Marijuana - Past Family History Father History Unknown: Yes Mother History Unknown: Yes Family Medical History: Diabetes Mellitus, Deep Vein Thrombosis (DVT), Myocardial Infarction ([place]), Thyroid Disorder Additional Family Medical History / Comment(s): patient adopted General Exam Limitations: no limitations General appearance: alert, in no apparent distress Head exam: Present: atraumatic, normocephalic Eye exam: Present: normal appearance, PERRL, EOMI. Absent: scleral icterus, conjunctival injection ENT exam: Present: normal oropharynx Neurological exam: Present: alert, oriented X3, CN II-XII intact, normal gait. Absent: motor sensory deficit Skin exam: Present: warm, dry, intact, normal color. Absent: rash Course Vital Signs 10/19/18 10/19/18 05:16 07:15 Temperature 98.2 F 98.1 F Pulse Rate 86 71 Respiratory 16 18 Rate Blood Pressure 156/101 120/90 O2 Sat by Pulse 98 99 Oximetry Medical Decision Making - Medical Decision Making Patient is 23-year-old woman presenting with headache that is not worst headache of life. She did have excellent response to medication and wanted to go home. We discussed appropriate further care and follow-up as well as return parameters. - Lab Data Result diagrams: 10/19/18 05:43 10/19/18 05:43 Lab Results 10/19/18 10/19/18 10/19/18 Range/Units 05:43 05:43 05:43 WBC 7.2 (3.8-10.6) k/uL RBC 3.84 (3.80-5.40) m/uL Hgb 11.4 (11.4-16.0) gm/dL Hct 34.5 (34.0-46.0) % MCV 89.7 (80.0-100.0) fL MCH 29.8 (25.0-35.0) pg MCHC 33.2 (31.0-37.0) g/dL RDW 14.3 (11.5-15.5) % Plt Count 275 (150-450) k/uL Neutrophils % 51 % Lymphocytes % 40 % Monocytes % 5 % Eosinophils % 3 % Basophils % 0 % Neutrophils # 3.7 (1.3-7.7) k/uL Lymphocytes # 2.9 (1.0-4.8) k/uL Monocytes # 0.3 (0-1.0) k/uL Eosinophils # 0.2 (0-0.7) k/uL Basophils # 0.0 (0-0.2) k/uL Sodium 138 (137-145) mmol/L Potassium 4.1 (3.5-5.1) mmol/L Chloride 105 (98-107) mmol/L Carbon Dioxide 25 (22-30) mmol/L Anion Gap 8 mmol/L BUN 14 (7-17) mg/dL Creatinine 0.55 (0.52-1.04) mg/dL Est GFR (CKD-EPI)AfAm >90 (>60 ml/min/1.73 sqM) Est GFR (CKD-EPI)NonAf >90 (>60 ml/min/1.73 sqM) Glucose 103 H (74-99) mg/dL Calcium 9.4 (8.4-10.2) mg/dL Total Bilirubin 0.1 L (0.2-1.3) mg/dL AST 20 (14-36) U/L ALT 27 (9-52) U/L Alkaline Phosphatase 73 (38-126) U/L Total Protein 6.8 (6.3-8.2) g/dL Albumin 3.8 (3.5-5.0) g/dL Amylase 65 (30-110) U/L Lipase 88 (23-300) U/L Urine Color Urine Appearance (Clear) Urine pH (5.0-8.0) Ur Specific [place] (1.001-1.035) Urine Protein (Negative) Urine Glucose (UA) (Negative) Urine Ketones (Negative) Urine Blood (Negative) Urine Nitrite (Negative) Urine Bilirubin (Negative) Urine Urobilinogen (<2.0) mg/dL Ur Leukocyte Esterase (Negative) Urine HCG, Qual Not Detected (Not Detectd) 10/19/18 Range/Units 05:43 WBC (3.8-10.6) k/uL RBC (3.80-5.40) m/uL Hgb (11.4-16.0) gm/dL Hct (34.0-46.0) % MCV (80.0-100.0) fL MCH (25.0-35.0) pg MCHC (31.0-37.0) g/dL RDW (11.5-15.5) % Plt Count (150-450) k/uL Neutrophils % % Lymphocytes % % Monocytes % % Eosinophils % % Basophils % % Neutrophils # (1.3-7.7) k/uL Lymphocytes # (1.0-4.8) k/uL Monocytes # (0-1.0) k/uL Eosinophils # (0-0.7) k/uL Basophils # (0-0.2) k/uL Sodium (137-145) mmol/L Potassium (3.5-5.1) mmol/L Chloride (98-107) mmol/L Carbon Dioxide (22-30) mmol/L Anion Gap mmol/L BUN (7-17) mg/dL Creatinine (0.52-1.04) mg/dL Est GFR (CKD-EPI)AfAm (>60 ml/min/1.73 sqM) Est GFR (CKD-EPI)NonAf (>60 ml/min/1.73 sqM) Glucose (74-99) mg/dL Calcium (8.4-10.2) mg/dL Total Bilirubin (0.2-1.3) mg/dL AST (14-36) U/L ALT (9-52) U/L Alkaline Phosphatase (38-126) U/L Total Protein (6.3-8.2) g/dL Albumin (3.5-5.0) g/dL Amylase (30-110) U/L Lipase (23-300) U/L Urine Color Light Yellow Urine Appearance Clear (Clear) Urine pH 6.5 (5.0-8.0) Ur Specific [place] 1.013 (1.001-1.035) Urine Protein Negative (Negative) Urine Glucose (UA) Negative (Negative) Urine Ketones Negative (Negative) Urine Blood Negative (Negative) Urine Nitrite Negative (Negative) Urine Bilirubin Negative (Negative) Urine Urobilinogen <2.0 (<2.0) mg/dL Ur Leukocyte Esterase Negative (Negative) Urine HCG, Qual (Not Detectd) Disposition Clinical Impression: Headache Disposition: HOME SELF-CARE Condition: Good Instructions (If sedation given, give patient instructions): Acute Headache (ED) Is patient prescribed a controlled substance at d/c from ED?: No Referrals: [facility] [Primary Care Provider] - 1-2 days
[2018-10-19 07:23] VITALS: BP 120/90; PULSE 71; RESP 18; TEMP 98.1
== END 2018-10-19 08:07 | disposition home or self-care (01) ==
LOC: EC 05:04
DX: R51 Headache (principal); H53.149 Visual discomfort, unspecified; R11.0 Nausea; J45.909 Unspecified asthma, uncomplicated; F17.200 Nicotine dependence, unspecified, uncomplicated; Z91.041 Radiographic dye allergy status; Z91.048 Other nonmedicinal substance allergy status
CPT/HCPCS: 36415; 80053; 82150; 83690; 85025; 81003; 81025; 70450; 99284; 96374; J2270

== ENCOUNTER 2018-10-20 07:12 | Emergency (ER) | payer OTHER ==
[2018-10-20 07:21] VITALS: BP 138/101; PULSE 74; RESP 18; TEMP 97.8
[2018-10-20] MEDS ORDERED: ACET/COD 300 MG/30 MG STARTER PACK 6 TAB BTL PO STA (07:50)
--- NOTE | 2018-10-20 07:50 | ED ---
ENT HPI - General Chief complaint: Dental/Oral Stated complaint: abscess in mouth Time Seen by Provider: 10/20/18 07:26 Source: patient, RN notes reviewed, old records reviewed Mode of arrival: ambulatory Limitations: no limitations - History of Present Illness Initial comments: 23 yo female presenting for right upper molar tooth pain x >4 weeks. Patient states she has been amoxicillin, keflex and continue to have dental pain. Denies facial swelling, denies fever, flu like symptoms. Patient states she has no swelling below the tongue, difficulty swallowing or feeling of compression of through. Patient states that the pain has been slightly increased for the past week. Remaining ROS (-). Upon arrival pt BP elevated, HR WNL. Patient appears well nontoxic. HCg 10/19/18 (-) - Related Data Home Medications Medication Instructions Recorded Confirmed Albuterol Inhaler [Ventolin Hfa 2 puff INHALATION RT-Q6H PRN 10/19/18 10/20/18 Inhaler] Previous Rx's Medication Instructions Recorded Ibuprofen [Motrin] 600 mg PO Q8HR PRN #30 tab 08/15/18 Clindamycin [Cleocin] 450 mg PO Q8H 7 Days #63 capsule 10/20/18 Allergies Allergy/AdvReac Type Severity Reaction Status Date / Time iodine Allergy Swelling Verified 10/20/18 08:12 Iodine and Iodide Containing Allergy Swelling Verified 10/20/18 08:12 Produc ragweed pollen Allergy Unknown Verified 10/20/18 08:12 Review of Systems ROS Statement: Those systems with pertinent positive or pertinent negative responses have been documented in the HPI. ROS Other: All systems not noted in ROS Statement are negative. Past Medical History Past Medical History: Asthma, Hypertension Additional Past Medical History / Comment(s): colitis History of Any Multi-Drug Resistant Organisms: None Reported Past Surgical History: Section Past Anesthesia/Blood Transfusion Reactions: No Reported Reaction Past Psychological History: ADD/ADHD, Anxiety, Bipolar, Depression, PTSD Smoking Status: Current every day smoker Past Alcohol Use History: None Reported Past Drug Use History: Marijuana - Past Family History Father History Unknown: Yes Mother History Unknown: Yes Family Medical History: Diabetes Mellitus, Deep Vein Thrombosis (DVT), Myocardial Infarction ([place]), Thyroid Disorder Additional Family Medical History / Comment(s): patient adopted General Exam - General Exam Comments Initial Comments: General: The patient is awake and alert, in no distress, and does not appear acutely ill. Eye: Pupils are equal, round and reactive to light, extra-ocular movements are intact. No nystagmus. There is normal conjunctiva bilaterally. No signs of icterus. Ears, nose, mouth and throat: There are moist mucous membranes and no oral lesions. No palpable abscess matthews to percussion of tooth # 2. Crack in tooth noted, multiple caries. No swelling of face, below tongue, adjacent to dentition. No pain to palpation below the tongue. No swelling below the angle of the manidble. Neck: The neck is supple, there is no tenderness or JVD. Cardiovascular: There is a regular rate and rhythm. No murmur, rub or gallop is appreciated. Respiratory: Lungs are clear to auscultation, respirations are non-labored, breath sounds are equal. No wheezes, stridor, rales, or rhonchi. Musculoskeletal: Normal ROM, no tenderness. Strength 5/5. Sensation intact. Pulses equal bilaterally 2+. Neurological: A&O x 3. CN II-XII intact, There are no obvious motor or sensory deficits. Coordination appears grossly intact. Speech is normal. Skin: Skin is warm and dry and no rashes or lesions are noted. Psychiatric: Cooperative, appropriate mood & affect, normal judgment. Limitations: no limitations Course Vital Signs 10/20/18 07:14 Temperature 97.8 F Pulse Rate 74 Respiratory 18 Rate Blood Pressure 138/101 O2 Sat by Pulse 97 Oximetry Medical Decision Making - Medical Decision Making 23-year-old female presenting for dental pain. She states has been ongoing for months. She said she is on multiple antibiotics. She states clindamycin has worked in the past. I discussed the importance of tooth extraction. I discussed free clinics within the city. Patient verbalized understanding the importance of extraction. There is no signs of obvious dental abscess. Possibility of periapical however the strong suspicion. Patient appears well nontoxic no signs of Dk's angina or systemic infection. At this time feel patient is stable for discharge with outpatient dentist follow-up. Patient is good with care plan at discharge at this time Disposition Clinical Impression: Pain, dental, Chronic dental pain, Elevated blood pressure reading Disposition: HOME SELF-CARE Condition: Good Instructions (If sedation given, give patient instructions): Toothache (ED) Additional Instructions: Please use medication as discussed. Please follow-up with DENTIST FOR TOOTH REMOVAL--if you develop facial swelling, swelling below the tongue or fever please return. Follow-up with PCP for elevated blood pressure. Please return to emergency room if the symptoms increase or worsen or for any other concerns. Prescriptions: Clindamycin [Cleocin] 450 mg PO Q8H 7 Days #63 capsule Is patient prescribed a controlled substance at d/c from ED?: No Referrals: [facility] [Primary Care Provider] - 1-2 days Time of Disposition: 07:50
== END 2018-10-20 08:23 | disposition home or self-care (01) ==
LOC: EC 07:12
DX: K08.89 Other specified disorders of teeth and supporting structures (principal); G89.29 Other chronic pain; I10 Essential (primary) hypertension; J45.909 Unspecified asthma, uncomplicated; F17.200 Nicotine dependence, unspecified, uncomplicated; Z88.8 Allergy status to other drugs, medicaments and biological substances; Z91.048 Other nonmedicinal substance allergy status
CPT/HCPCS: 99283

== ENCOUNTER 2019-01-26 21:55 | Emergency (ER) | payer OTHER ==
[2019-01-26 22:10] VITALS: RESP 18
[2019-01-26 22:39] LABS: Appearance,Urine Clear (Clear); Bacteria,Urine Rare /hpf; Bilirubin,Urine Negative (Negative); Blood,Urine Negative (Negative); Color,Urine Yellow; Glucose,Urine (UA) Negative (Negative); Ketones,Urine Negative (Negative); Leukocyte Esterase,Urine Trace (Negative); Mucus,Urine Rare /hpf; Nitrite,Urine Negative (Negative); PH, Urine 5.5 (5.0-8.0); Protein,Urine Negative (Negative); RBC,Urine 1 /hpf (0-5); Specific Gravity,Urine 1.025 (1.001-1.035); Squamous Epithelial Cell,Urine 2 /hpf (0-4); Urobilinogen,Urine <2.0 mg/dL (<2.0); WBC,Urine 1 /hpf (0-5)
--- NOTE | 2019-01-26 22:51 | ED ---
General Adult HPI - General Chief complaint: Upper Respiratory Infection Stated complaint: Upper Resp, Headache Time Seen by Provider: 01/26/19 22:08 Source: patient, RN notes reviewed, old records reviewed Mode of arrival: ambulatory Limitations: no limitations - History of Present Illness Initial comments: 23-year-old female patient presents to the chief complaint of cough, congestion, sore throat. Patient reports has been ongoing for 3 days. Reports that she has other close contacts are sick with similar symptoms. Patient also reports that she has irregular periods and has not had a menstrual cycle in approximately 3 months. Denies any abdominal pain. Denies any other complaints. Systemic: Pt denies fatigue, fever/chills, rash. Pt denies weakness, night sweats, weight loss. Neuro: Pt denies headache, visual disturbances, syncope or pre-syncope. HEENT: Pt denies ocular discharge or irritation, otalgia, rhinorrhea, pharyngitis or notable lymphadenopathy. Cardiopulmonary: Pt denies chest pain, SOB, heart palpitations, dyspnea on exertion. Abdominal/GI: Pt denies abdominal pain, n/v/d. : Pt denies dysuria, burning w/ urination, frequency/urgency. Denies new onset urinary or bowel incontinence. MSK: Pt denies myalgia, loss of strength or function in extremities. Neuro: Pt denies new onset weakness, paresthesias. - Related Data Home Medications Medication Instructions Recorded Confirmed Albuterol Inhaler [Ventolin Hfa 2 puff INHALATION RT-Q6H PRN 10/19/18 10/20/18 Inhaler] Previous Rx's Medication Instructions Recorded Ibuprofen [Motrin] 600 mg PO Q8HR PRN #30 tab 08/15/18 Clindamycin [Cleocin] 450 mg PO Q8H 7 Days #63 capsule 10/20/18 Allergies Allergy/AdvReac Type Severity Reaction Status Date / Time iodine Allergy Swelling Verified 10/20/18 08:12 Iodine and Iodide Containing Allergy Swelling Verified 10/20/18 08:12 Produc ragweed pollen Allergy Unknown Verified 10/20/18 08:12 Review of Systems ROS Statement: Those systems with pertinent positive or pertinent negative responses have been documented in the HPI. ROS Other: All systems not noted in ROS Statement are negative. Past Medical History Past Medical History: Asthma, Hypertension Additional Past Medical History / Comment(s): colitis History of Any Multi-Drug Resistant Organisms: None Reported Past Surgical History: Section Past Anesthesia/Blood Transfusion Reactions: No Reported Reaction Past Psychological History: ADD/ADHD, Anxiety, Bipolar, Depression, PTSD Smoking Status: Current every day smoker Past Alcohol Use History: None Reported Past Drug Use History: Marijuana - Past Family History Father History Unknown: Yes Mother History Unknown: Yes Family Medical History: Diabetes Mellitus, Deep Vein Thrombosis (DVT), Myocardial Infarction ([place]), Thyroid Disorder Additional Family Medical History / Comment(s): patient adopted General Exam - General Exam Comments Initial Comments: Constitutional: NAD, AOX3, Pt has pleasant affect. HEENT: NC/AT, trachea midline, neck supple, no lymphadenopathy. Posterior pharynx non erythematous, without exudates. External ears appear normal, without discharge. TMs pale kinney bilaterally. Mucous membranes moist. Eyes PERRLA, EOM intact. There is no scleral icterus. No pallor noted. Cardiopulmonary: RRR, no murmurs, rubs or gallops, no JVD noted. Lungs CTAB in anterior and posterior garcia. No peripheral edema. Abdominal exam: Abdomen soft and non-distended. Abdomen non-tender to palpation in all 4 quadrants. Bowel sounds active in LLQ. No hepatosplenomegaly. No ecchymosis Neuro: CN II-XII grossly intact. No nuchal rigidity. No raccon eyes, no roth sign, no hemotympanum. No cervical spinal tenderness. MSK: No posterior calf tenderness bilaterally, homans sign negative bilaterally. Posterior tibialis and radial pulse +2 bilaterally. Sensation intact in upper and lower extremities. Full active ROM in upper and lower extremities, 5/5 stregnth. Limitations: no limitations Course Vital Signs 01/26/19 01/26/19 22:06 22:56 Temperature 98 F 97.9 F Pulse Rate 93 99 Respiratory 18 18 Rate Blood Pressure 127/82 119/70 O2 Sat by Pulse 100 99 Oximetry Medical Decision Making - Medical Decision Making 23-year-old female patient presents to the chief complaint of cough, congestion, sore throat. Patient reports has been ongoing for 3 days. Reports that she has other close contacts are sick with similar symptoms. Patient also reports that she has irregular periods and has not had a menstrual cycle in approximately 3 months. Denies any abdominal pain. Denies any other complaints. Patient vital signs stable, afebrile. Physical exam did not display acute pathology. Laboratory investigations revealed negative strep. UA negative. Chest x-ray revealed normal chest, cardiac silhouette, possibly larger or may be technical. Patient will discharge the patient primary care follow-up. Likely viral syndrome. Case discussed with Dr. Menard. - Lab Data Lab Results 01/26/19 01/26/19 01/26/19 Range/Units 22:29 22:29 22:50 Urine Color Yellow Urine Appearance Clear (Clear) Urine pH 5.5 (5.0-8.0) Ur Specific [place] 1.025 (1.001-1.035) Urine Protein Negative (Negative) Urine Glucose (UA) Negative (Negative) Urine Ketones Negative (Negative) Urine Blood Negative (Negative) Urine Nitrite Negative (Negative) Urine Bilirubin Negative (Negative) Urine Urobilinogen <2.0 (<2.0) mg/dL Ur Leukocyte Esterase Trace H (Negative) Urine RBC 1 (0-5) /hpf Urine WBC 1 (0-5) /hpf Ur Squamous Epith Cells 2 (0-4) /hpf Urine Bacteria Rare H (None) /hpf Urine Mucus Rare H (None) /hpf Urine HCG, Qual Not Detected (Not Detectd) Group A Strep Rapid Negative (Negative) Disposition Clinical Impression: Viral syndrome Disposition: HOME SELF-CARE Condition: Stable Instructions (If sedation given, give patient instructions): Upper Respiratory Infection (ED), Viral Syndrome (ED) Additional Instructions: Patient to adhere to previously discussed treatment plan and will take medication(s) as directed. Patient to follow up with PCP in 1-2 days. Patient to return to ED if symptoms do not improve. Follow-up with PCP tomorrow. Return to ER if condition worsens. Is patient prescribed a controlled substance at d/c from ED?: No Referrals: None,Stated [Primary Care Provider] - 1-2 days
--- NOTE | 2019-01-26 22:51 | XR ---
EXAMINATION TYPE: XR chest 2V DATE OF EXAM: 01/26/2019 COMPARISON: August 02, 2018 HISTORY: Cough and congestion TECHNIQUE: Frontal and lateral views of the chest are obtained. FINDINGS: Heart and mediastinum are normal. Lungs are clear. Diaphragm is normal. Bony thorax appear s normal. IMPRESSION: Normal chest. The cardiac silhouette however appears increased compared to old exam and is could be technical.
[2019-01-26 22:58] VITALS: BP 119/70; PULSE 99; TEMP 97.9
== END 2019-01-26 23:39 | disposition home or self-care (01) ==
LOC: EC 21:55
DX: B34.9 Viral infection, unspecified (principal); N92.6 Irregular menstruation, unspecified; J45.909 Unspecified asthma, uncomplicated; F17.200 Nicotine dependence, unspecified, uncomplicated; Z91.048 Other nonmedicinal substance allergy status; Z79.899 Other long term (current) drug therapy
CPT/HCPCS: 71046; 81001; 81025; 87081; 87430; 99284

== ENCOUNTER 2019-01-29 00:28 | Emergency (ER) | payer OTHER ==
[2019-01-29 00:32] VITALS: BP 139/79
[2019-01-29] MEDS ORDERED: predniSONE 20 MG TAB PO STA (01:12)
[2019-01-29] MEDS ORDERED: ALBUTEROL NEBULIZED 2.5 MG/3 ML INHALATION STA (01:12)
--- NOTE | 2019-01-29 01:24 | ED ---
URI HPI - General Chief Complaint: Upper Respiratory Infection Stated Complaint: URI Time Seen by Provider: 01/29/19 00:33 Source: patient Mode of arrival: ambulatory Limitations: no limitations - History of Present Illness Initial Comments: This patient is a 23-year-old woman who presents to be evaluated for upper respiratory symptoms. Patient states that approximate 7-10 days ago she had started having some nasal congestion/drainage, which was then followed by sore throat, then a cough. She had been seen here 3 days ago and diagnosed with upper respiratory infection. She states that in the interim since she was seen she has started to develop some burning chest pain bilaterally when she coughs. She is having a little bit of white to yellow sputum. MD Complaint: cough, sore throat, rhinorrhea Onset/Timin -: week(s) Severity: mild Quality: burning Consistency: intermittent Associated Symptoms: rhinorrhea, cough, chest pain - Related Data Home Medications Medication Instructions Recorded Confirmed Albuterol Inhaler [Ventolin Hfa 2 puff INHALATION RT-Q6H PRN 10/19/18 10/20/18 Inhaler] Previous Rx's Medication Instructions Recorded Ibuprofen [Motrin] 600 mg PO Q8HR PRN #30 tab 08/15/18 Clindamycin [Cleocin] 450 mg PO Q8H 7 Days #63 capsule 10/20/18 Albuterol Inhaler [Ventolin Hfa 1 - 2 puff INHALATION Q6HR PRN #1 01/29/19 Inhaler] inhaler Benzonatate [Tessalon Perles] 100 mg PO TID PRN #15 capsule 01/29/19 predniSONE 60 mg PO DAILY #30 tab 01/29/19 Allergies Allergy/AdvReac Type Severity Reaction Status Date / Time iodine Allergy Swelling Verified 01/29/19 00:32 Iodine and Iodide Containing Allergy Swelling Verified 01/29/19 00:32 Produc ragweed pollen Allergy Unknown Verified 01/29/19 00:32 Review of Systems ROS Statement: Those systems with pertinent positive or pertinent negative responses have been documented in the HPI. ROS Other: All systems not noted in ROS Statement are negative. Constitutional: Denies: fever, chills, weakness ENT: Reports: as per HPI, throat pain, congestion Respiratory: Reports: as per HPI, cough. Denies: dyspnea, wheezes, hemoptysis, stridor Cardiovascular: Reports: as per HPI, chest pain. Denies: palpitations, dyspnea on exertion, orthopnea, edema, syncope Gastrointestinal: Denies: abdominal pain, vomiting, diarrhea Genitourinary: Denies: dysuria, hematuria, abnormal menses Musculoskeletal: Denies: back pain Skin: Denies: rash Neurological: Denies: headache Past Medical History Past Medical History: Asthma, Hypertension Additional Past Medical History / Comment(s): colitis History of Any Multi-Drug Resistant Organisms: None Reported Past Surgical History: Section Past Anesthesia/Blood Transfusion Reactions: No Reported Reaction Past Psychological History: ADD/ADHD, Anxiety, Bipolar, Depression, PTSD Smoking Status: Current every day smoker Past Alcohol Use History: Occasional Past Drug Use History: Marijuana - Past Family History Father History Unknown: Yes Mother History Unknown: Yes Family Medical History: Diabetes Mellitus, Deep Vein Thrombosis (DVT), Myocardial Infarction ([place]), Thyroid Disorder Additional Family Medical History / Comment(s): patient adopted General Exam Limitations: no limitations General appearance: alert, in no apparent distress Head exam: Present: atraumatic, normocephalic Eye exam: Present: normal appearance. Absent: scleral icterus, conjunctival injection ENT exam: Present: TM's normal bilaterally, normal external ear exam, other (Mild injection of the pharynx. Uvula is midline, no edema. No exudate) Neck exam: Present: normal inspection, full ROM, lymphadenopathy. Absent: tenderness, meningismus Respiratory exam: Present: normal lung sounds bilaterally. Absent: respiratory distress, wheezes, rales, rhonchi, stridor Cardiovascular Exam: Present: regular rate, normal rhythm, normal heart sounds. Absent: systolic murmur, diastolic murmur, rubs, gallop GI/Abdominal exam: Present: soft. Absent: distended, tenderness, guarding, rebound, rigid Extremities exam: Present: normal inspection, normal capillary refill. Absent: pedal edema, calf tenderness Back exam: Present: normal inspection. Absent: CVA tenderness (R), CVA tenderness (L) Neurological exam: Present: alert Skin exam: Present: warm, dry, intact, normal color. Absent: rash Course Vital Signs 01/29/19 01/29/19 00:30 00:32 Temperature 98.1 F Pulse Rate 99 Respiratory 20 19 Rate Blood Pressure 139/79 O2 Sat by Pulse 98 Oximetry Disposition Clinical Impression: Bronchitis Disposition: HOME SELF-CARE Condition: Good Instructions (If sedation given, give patient instructions): Acute Bronchitis (ED) Prescriptions: predniSONE 60 mg PO DAILY #30 tab Benzonatate [Tessalon Perles] 100 mg PO TID PRN #15 capsule PRN Reason: Cough Albuterol Inhaler [Ventolin Hfa Inhaler] 1 - 2 puff INHALATION Q6HR PRN #1 inhaler PRN Reason: Wheezing Is patient prescribed a controlled substance at d/c from ED?: No Referrals: None,Stated [Primary Care Provider] - 1-2 days
[2019-01-29 01:47] VITALS: PULSE 96; RESP 18; TEMP 98.2
== END 2019-01-29 01:47 | disposition home or self-care (01) ==
LOC: EC 00:28
DX: J40 Bronchitis, not specified as acute or chronic (principal); I10 Essential (primary) hypertension; F17.200 Nicotine dependence, unspecified, uncomplicated; Z91.048 Other nonmedicinal substance allergy status; Z91.018 Allergy to other foods
CPT/HCPCS: 94640; 99283; J7512

== ENCOUNTER 2019-02-19 12:58 | Emergency (ER) | payer OTHER ==
[2019-02-19 13:08] VITALS: RESP 16
--- NOTE | 2019-02-19 13:51 | ED ---
General Adult HPI - General Chief complaint: Psychiatric Symptoms Stated complaint: Mental Jesus Manuel Time Seen by Provider: 02/19/19 13:05 Source: EMS, RN notes reviewed, old records reviewed Mode of arrival: EMS Limitations: no limitations - History of Present Illness Initial comments: This is a 23-year-old female presents emergency Department by EMS because the police called them. According to the patient she was upset because she has a lot going on in her life and she made some superficial cuts on her arm so her mother called police and the police called EMS and they brought her into the emergency department. Patient states in no way was she trying to kill herself and she is not suicidal currently. Patient denies any illegal drug use except for marijuana per patient denies any alcohol use. Patient denies any physical complaints. Patient states she has a tetanus given to her this summer. Patient emphasized she was only doing so she can feel something because she's been so upset lately she did not want to do any significant damage herself or kill herself. - Related Data Home Medications Medication Instructions Recorded Confirmed Albuterol Inhaler [Ventolin Hfa 1 - 2 puff INHALATION RT-QID PRN 02/19/19 02/19/19 Inhaler] Allergies Allergy/AdvReac Type Severity Reaction Status Date / Time iodine Allergy Swelling Verified 02/19/19 13:05 Iodine and Iodide Containing Allergy Swelling Verified 02/19/19 13:05 Produc ragweed pollen Allergy Unknown Verified 02/19/19 13:05 Review of Systems ROS Statement: Those systems with pertinent positive or pertinent negative responses have been documented in the HPI. ROS Other: All systems not noted in ROS Statement are negative. Past Medical History Past Medical History: Asthma, Hypertension Additional Past Medical History / Comment(s): colitis History of Any Multi-Drug Resistant Organisms: None Reported Past Surgical History: Section Past Anesthesia/Blood Transfusion Reactions: No Reported Reaction Past Psychological History: ADD/ADHD, Anxiety, Bipolar, Depression, PTSD Smoking Status: Current every day smoker Past Alcohol Use History: Occasional Past Drug Use History: Marijuana - Past Family History Father History Unknown: Yes Mother History Unknown: Yes Family Medical History: Diabetes Mellitus, Deep Vein Thrombosis (DVT), Myocardial Infarction ([place]), Thyroid Disorder Additional Family Medical History / Comment(s): patient adopted General Exam - General Exam Comments Initial Comments: GENERAL: Patient is well-developed and well-nourished. Patient is nontoxic and well- hydrated and is in no acute distress. ENT: Neck is soft and supple. EYES: The sclera were anicteric and conjunctiva were pink and moist. Extraocular movements were intact and pupils were equal round and reactive to light. Eyelids were unremarkable. PULMONARY: Unlabored respirations. Good breath sounds bilaterally. No audible rales rhonchi or wheezing was noted. CARDIOVASCULAR: There is a regular rate and rhythm without any murmurs gallops or rubs. ABDOMEN: Soft and nontender with normal bowel sounds. SKIN: Skin is clear with no lesions or rashes and otherwise unremarkable. NEUROLOGIC: Patient is alert and oriented x3. Cranial nerves II through XII are grossly intact. Motor and sensory are also intact. Normal speech, volume and content. Symmetrical smile. MUSCULOSKELETAL: Patient has 2 superficial lacerations to her left wrist. LYMPHATICS: No significant lymphadenopathy is noted PSYCHIATRIC: Normal psychiatric evaluation. Patient is able to laugh and joke around during the interview and she does not appear depressed at all. Limitations: no limitations Course Vital Signs 02/19/19 02/19/19 13:05 13:09 Temperature 98.9 F Pulse Rate 91 Respiratory 16 Rate Blood Pressure 140/103 140/93 O2 Sat by Pulse 98 Oximetry Medical Decision Making - Medical Decision Making EPS evaluated the patient and determined that the patient could be sent home safely. Patient was given a safety plan. - Lab Data Lab Results 02/19/19 Range/Units 13:40 Urine Opiates Screen Not Detected (NotDetected) Ur Oxycodone Screen Not Detected (NotDetected) Urine Methadone Screen Not Detected (NotDetected) Ur Propoxyphene Screen Not Detected (NotDetected) Ur Barbiturates Screen Not Detected (NotDetected) U Tricyclic Antidepress Not Detected (NotDetected) Ur Phencyclidine Scrn Not Detected (NotDetected) Ur Amphetamines Screen Not Detected (NotDetected) U Methamphetamines Scrn Not Detected (NotDetected) U Benzodiazepines Scrn Not Detected (NotDetected) Urine Cocaine Screen Not Detected (NotDetected) U Marijuana (THC) Screen Detected H (NotDetected) Disposition Clinical Impression: Situational depression Disposition: HOME SELF-CARE Condition: Good Instructions (If sedation given, give patient instructions): Depression (ED) Is patient prescribed a controlled substance at d/c from ED?: No Referrals: None,Stated [Primary Care Provider] - 1-2 days Time of Disposition: 15:17
[2019-02-19 15:08] LABS: Amphetamine Screen,Urine Not Detected (NotDetected); Barbiturate Screen,Urine Not Detected (NotDetected); Benzodiazepines Screen,Urine Not Detected (NotDetected); Cocaine Screen,Urine Not Detected (NotDetected); Methadone Screen, Urine Not Detected (NotDetected); Opiate Screen,Urine Not Detected (NotDetected); Oxycodone Screen, Urine Not Detected (NotDetected); Phencyclidine Screen,Urine Not Detected (NotDetected); Tricyclic Antidepressant,Urine Not Detected (NotDetected); Urn Cannabinoid Scrn Detected (NotDetected)
[2019-02-19 15:31] VITALS: BP 114/84; PULSE 79; TEMP 98.8
== END 2019-02-19 15:29 | disposition home or self-care (01) ==
LOC: EC 12:58
DX: F43.21 Adjustment disorder with depressed mood (principal); F12.90 Cannabis use, unspecified, uncomplicated; J45.909 Unspecified asthma, uncomplicated; I10 Essential (primary) hypertension; F17.200 Nicotine dependence, unspecified, uncomplicated; Z79.51 Long term (current) use of inhaled steroids; Z91.041 Radiographic dye allergy status; Z91.018 Allergy to other foods
CPT/HCPCS: 80306; 82075; 99285

== ENCOUNTER 2019-05-22 19:51 | Emergency (ER) | payer OTHER ==
[2019-05-22] MEDS ORDERED: KETOROLAC 30 MG/ML 1 ML VIAL IM STA (21:42)
[2019-05-22] MEDS ORDERED: guaiFENesin-DM 600/30MG 1 EACH TAB.ER.12H PO STA (21:42)
[2019-05-22] MEDS ORDERED: ACETAMINOPHEN TAB 500 MG TAB PO STA (21:42)
[2019-05-22 23:18] VITALS: RESP 16; TEMP 98.7
--- NOTE | 2019-05-22 23:33 | ED ---
General Adult HPI - General Chief complaint: Headache Stated complaint: Anxiety Time Seen by Provider: 05/22/19 21:22 Source: patient, EMS Mode of arrival: EMS Limitations: no limitations - History of Present Illness Initial comments: 23-year-old female patient presents to the emergency department today for evaluation of headache and body aches. Patient states that she has been feeling unwell since earlier today. Patient states she is having a lot of facial pressure, nasal congestion and drainage, and headache. Patient states she has not taken any medication for her symptoms. States that she does have an intermittent cough. No chest pain, no sputum production, no shortness of breath. Denies any rash. She denies any abdominal pain, nausea, vomiting, hematuria, dysuria, urinary frequency, urinary urgency. She is having no constipation or diarrhea. Denies any neck pain or stiffness. Denies any chance of . Denies blurred or double vision. - Related Data Home Medications Medication Instructions Recorded Confirmed No Known Home Medications 05/22/19 05/22/19 Allergies Allergy/AdvReac Type Severity Reaction Status Date / Time iodine Allergy Swelling Verified 05/22/19 22:37 Iodine and Iodide Containing Allergy Swelling Verified 05/22/19 22:37 Produc ragweed pollen Allergy Unknown Verified 05/22/19 22:37 Review of Systems ROS Statement: Those systems with pertinent positive or pertinent negative responses have been documented in the HPI. ROS Other: All systems not noted in ROS Statement are negative. Past Medical History Past Medical History: Asthma, Hypertension Additional Past Medical History / Comment(s): colitis History of Any Multi-Drug Resistant Organisms: None Reported Past Surgical History: Section Past Anesthesia/Blood Transfusion Reactions: No Reported Reaction Past Psychological History: ADD/ADHD, Anxiety, Bipolar, Depression, PTSD Smoking Status: Current every day smoker Past Alcohol Use History: Occasional Past Drug Use History: Marijuana - Past Family History Father History Unknown: Yes Mother History Unknown: Yes Family Medical History: Diabetes Mellitus, Deep Vein Thrombosis (DVT), Myocardial Infarction ([place]), Thyroid Disorder Additional Family Medical History / Comment(s): patient adopted General Exam Limitations: no limitations General appearance: alert, in no apparent distress, other (Physical well- developed, well-nourished adult female patient in no acute distress. Vital signs upon presentation are temperature 101.2F, pulse 99, respirations 20, blood pressure 139/87, pulse ox 99% on room air.) Eye exam: Present: normal appearance, PERRL, EOMI. Absent: scleral icterus, conjunctival injection, periorbital swelling ENT exam: Present: mucous membranes moist, TM's normal bilaterally. Absent: normal oropharynx (Pharyngeal erythema, tonsillar hypertrophy.) Respiratory exam: Present: normal lung sounds bilaterally. Absent: respiratory distress, wheezes, rales, rhonchi, stridor Cardiovascular Exam: Present: regular rate, normal rhythm, normal heart sounds. Absent: systolic murmur, diastolic murmur, rubs, gallop, clicks GI/Abdominal exam: Present: soft, normal bowel sounds. Absent: distended, tenderness, guarding, rebound, rigid Neurological exam: Present: alert Psychiatric exam: Present: normal affect, normal mood Skin exam: Present: warm, dry, intact, normal color. Absent: rash Course Vital Signs 05/22/19 05/22/19 05/22/19 20:19 21:19 22:25 Temperature 101.2 F H 99.0 F Pulse Rate 99 96 81 Respiratory 102 H 18 14 Rate Blood Pressure 139/87 126/74 131/79 O2 Sat by Pulse 99 98 95 Oximetry 05/22/19 05/23/19 23:16 00:11 Temperature 98.7 F Pulse Rate 87 84 Respiratory 16 16 Rate Blood Pressure 133/56 132/79 O2 Sat by Pulse 97 96 Oximetry Medical Decision Making - Medical Decision Making 23-year-old female patient presents to the emergency department today for evaluation of headache, facial congestion, and body aches. Physical examination reveals pharyngeal erythema with tonsillar hypertrophy. Lungs are clear to auscultation with good air movement. Abdomen is soft and nontender. She tested negative for influenza. She was given Tylenol and Toradol. Upon reevaluation she does report improvement of symptoms. States her headache is resolved. She denies any new symptoms. She'll be discharged home with upper respiratory infection. She is instructed to alternate Tylenol Motrin for pain and fever control. She is instructed to follow-up with her primary care physician for recheck in 1-2 days. Return parameters were discussed in detail. She verbalizes understanding and agrees with this plan. - Lab Data Lab Results 05/22/19 Range/Units 20:30 Influenza Type A RNA Not Detected (Not Detectd) Influenza Type B (PCR) Not Detected (Not Detectd) Disposition Clinical Impression: Viral upper respiratory infection Disposition: HOME SELF-CARE Condition: Good Instructions (If sedation given, give patient instructions): Fever in Adults (ED), Upper Respiratory Infection (ED) Additional Instructions: Increase fluids. Rest. Alternate Tylenol Motrin for pain control. Follow-up through primary care physician for recheck in 1-2 days. Return to the emergency department immediately for any new, worsening, or concerning symptoms. Is patient prescribed a controlled substance at d/c from ED?: No Referrals: None,Stated [Primary Care Provider] - 1-2 days Time of Disposition: 23:50
[2019-05-23 00:11] VITALS: BP 132/79; PULSE 84
== END 2019-05-23 00:15 | disposition home or self-care (01) ==
LOC: EC 19:51
DX: J06.9 Acute upper respiratory infection, unspecified (principal); F17.200 Nicotine dependence, unspecified, uncomplicated; J30.1 Allergic rhinitis due to pollen; I10 Essential (primary) hypertension; Z91.041 Radiographic dye allergy status; Z87.09 Personal history of other diseases of the respiratory system
CPT/HCPCS: 87502; 96372; 99284; J1885

== ENCOUNTER 2019-05-24 09:46 | Emergency (ER) | payer OTHER ==
[2019-05-24 10:02] VITALS: BP 126/85; PULSE 86; RESP 18; TEMP 98
[2019-05-24] MEDS ORDERED: DEXAMETHASONE 4 MG TAB PO STA (11:30)
--- NOTE | 2019-05-24 11:32 | ED ---
ENT HPI - General Chief complaint: ENT Stated complaint: sore throat/cough Source: patient Mode of arrival: ambulatory Limitations: no limitations - History of Present Illness Initial comments: 23-year-old female with history of HTN presenting today for chief complaint of sore throat. Patient's that she woke up this morning with a sore throat she states she has had a mild cough denies a difficulty breathing swallowing or difficulty tolerating oral secretions. Patient states she is able to eat. Patient states she has also had congestion denies fevers admits to chills. Pat ient states she was here previously diagnosed with viral upper respiratory infection. She states the sore throat is new. Remaining review of systems negative upon arrival patient appears well signs of acute distress. Afebrile, nontoxic in appearance. Denies - Related Data Previous Rx's Medication Instructions Recorded Amoxicillin 875 mg PO Q12HR 7 Days #14 tablet 05/24/19 Allergies Allergy/AdvReac Type Severity Reaction Status Date / Time iodine Allergy Swelling Verified 05/24/19 10:03 Iodine and Iodide Containing Allergy Swelling Verified 05/24/19 10:03 Produc ragweed pollen Allergy Unknown Verified 05/24/19 10:03 Review of Systems ROS Statement: Those systems with pertinent positive or pertinent negative responses have been documented in the HPI. ROS Other: All systems not noted in ROS Statement are negative. Past Medical History Past Medical History: Asthma, Hypertension Additional Past Medical History / Comment(s): colitis History of Any Multi-Drug Resistant Organisms: None Reported Past Surgical History: Section Past Anesthesia/Blood Transfusion Reactions: No Reported Reaction Past Psychological History: ADD/ADHD, Anxiety, Bipolar, Depression, PTSD Smoking Status: Current every day smoker Past Alcohol Use History: Occasional Past Drug Use History: Marijuana - Past Family History Father History Unknown: Yes Mother History Unknown: Yes Family Medical History: Diabetes Mellitus, Deep Vein Thrombosis (DVT), Myocardial Infarction ([place]), Thyroid Disorder Additional Family Medical History / Comment(s): patient adopted General Exam Limitations: no limitations Course Vital Signs 05/24/19 09:59 Temperature 98.0 F Pulse Rate 86 Respiratory 18 Rate Blood Pressure 126/85 O2 Sat by Pulse 97 Oximetry Medical Decision Making - Medical Decision Making 23-year-old female presenting today for chief complaint of sore throat. Throat revealed erythematous and enlarged tonsils. There is no exudates. Patient has enlarged anterior lymphadenopathy concerning for strep pharyngitis. Rapid strep negative culture pending patient be treated with amoxicillin. For the testing negative patient has clear lung sounds appears well nontoxic afebrile this time feel she is stable for discharge with outpatient primary care follow-up and return parameters as discussed patient showed no signs of peritonsillar abscess and physical examination no muffled voice or tripoding was present. Discussed case attending provider who is agreeable to care for discharge at this time. - Lab Data Lab Results 05/24/19 05/24/19 Range/Units 11:00 11:00 Influenza Type A RNA Not Detected (Not Detectd) Influenza Type B (PCR) Not Detected (Not Detectd) Group A Strep Rapid Negative (Negative) Disposition Clinical Impression: Pharyngitis, URI (upper respiratory infection) Disposition: HOME SELF-CARE Condition: Good Additional Instructions: Please use medication as discussed. Please follow-up with family doctor in the next 2 days. Please return to emergency room if the symptoms increase or worsen or for any other concerns. Prescriptions: Amoxicillin 875 mg PO Q12HR 7 Days #14 tablet Is patient prescribed a controlled substance at d/c from ED?: No Referrals: None,Stated [Primary Care Provider] - 1-2 days Time of Disposition: 11:49
== END 2019-05-24 12:01 | disposition home or self-care (01) ==
LOC: EC 09:46
DX: J02.9 Acute pharyngitis, unspecified (principal); I10 Essential (primary) hypertension; F17.200 Nicotine dependence, unspecified, uncomplicated; Z91.018 Allergy to other foods
CPT/HCPCS: 99283; 87081; 87430; 87502; J8540

== ENCOUNTER 2019-11-06 07:50 | Emergency (ER) | payer OTHER ==
[2019-11-06] MEDS ORDERED: ORPHENADRINE 30 MG/ML 2 ML VIAL IM STA (08:02)
[2019-11-06] MEDS ORDERED: KETOROLAC 60 MG/2 ML VIAL IM STA (08:02)
--- NOTE | 2019-11-06 08:05 | ED ---
General Adult HPI - General Chief complaint: Extremity Injury, Lower Stated complaint: tailbone pain Time Seen by Provider: 11/06/19 07:57 Source: patient, RN notes reviewed, old records reviewed Mode of arrival: ambulatory Limitations: no limitations - History of Present Illness Initial comments: Patient is a 24-year-old female who presents emergency department today for concerns for tailbone pain starting Tuesday. She denies any fall or trauma. She states that she has no overlying skin changes. She reports that she states that her back muscles feel tight. Patient states that she woke up with worsening pain. Denies any saddle anesthesias. Denies any change in urination or bowel habits. - Related Data Home Medications Medication Instructions Recorded Confirmed Levonorgestrel [Mirena] 1 implant IY ONCE 11/06/19 11/06/19 Previous Rx's Medication Instructions Recorded Cyclobenzaprine [Flexeril] 10 mg PO TID #12 tab 11/06/19 Ibuprofen [Motrin] 600 mg PO Q8HR PRN #20 tab 11/06/19 Allergies Allergy/AdvReac Type Severity Reaction Status Date / Time iodine Allergy Swelling Verified 11/06/19 08:45 Iodine and Iodide Containing Allergy Swelling Verified 11/06/19 08:45 Produc ragweed pollen Allergy Unknown Verified 11/06/19 08:45 Review of Systems ROS Statement: Those systems with pertinent positive or pertinent negative responses have been documented in the HPI. ROS Other: All systems not noted in ROS Statement are negative. Past Medical History Past Medical History: Asthma, Hypertension Additional Past Medical History / Comment(s): colitis History of Any Multi-Drug Resistant Organisms: None Reported Past Surgical History: Section Past Anesthesia/Blood Transfusion Reactions: No Reported Reaction Past Psychological History: ADD/ADHD, Anxiety, Bipolar, Depression, PTSD Smoking Status: Current every day smoker Past Alcohol Use History: Occasional Past Drug Use History: Marijuana - Past Family History Father History Unknown: Yes Mother History Unknown: Yes Family Medical History: Diabetes Mellitus, Deep Vein Thrombosis (DVT), Myocardial Infarction ([place]), Thyroid Disorder Additional Family Medical History / Comment(s): patient adopted General Exam - General Exam Comments Initial Comments: 24-year-old female. No distress. Limitations: no limitations General appearance: alert, in no apparent distress Head exam: Present: atraumatic, normocephalic, normal inspection Eye exam: Present: normal appearance, PERRL, EOMI. Absent: scleral icterus, conjunctival injection, periorbital swelling ENT exam: Present: normal exam, mucous membranes moist Neck exam: Present: normal inspection. Absent: tenderness, meningismus, lymphadenopathy Respiratory exam: Present: normal lung sounds bilaterally. Absent: respiratory distress, wheezes, rales, rhonchi, stridor Cardiovascular Exam: Present: regular rate, normal rhythm, normal heart sounds. Absent: systolic murmur, diastolic murmur, rubs, gallop, clicks GI/Abdominal exam: Present: soft, normal bowel sounds. Absent: distended, tenderness, guarding, rebound, rigid Extremities exam: Present: normal inspection, full ROM, normal capillary refill. Absent: tenderness, pedal edema, joint swelling, calf tenderness Back exam: Present: normal inspection, other (Patient has tenderness over the paraspinal lumbar spine and coccyx. No evidence of abscess or skin changes over the tailbone) Neurological exam: Present: alert, oriented X3, CN II-XII intact Psychiatric exam: Present: normal affect, normal mood Skin exam: Present: warm, dry, intact, normal color. Absent: rash Course Vital Signs 11/06/19 11/06/19 07:51 08:30 Temperature 98.8 F Pulse Rate 114 H 89 Respiratory 20 18 Rate Blood Pressure 157/86 127/83 O2 Sat by Pulse 98 99 Oximetry Medical Decision Making - Medical Decision Making Patient is reevaluated and resting comfortably bed at this time. She seen today for the concern for lumbar spine and tailbone pain. There is no overlying skin changes. She has some paraspinal muscle tenderness. With no history of fall or saddle anesthesia. Today Patient is given IM Toradol and Norflex as reports some relief of her symptoms. She reports it seems to worse with any movement and going from sitting to standing. Discussed likely inched nerve related to muscle spasm possible piriformis syndrome. Discussed the importance of stretching, and doing heat and ice over the area of tenderness. I discussed using a temperature medication for pain relief. Discussed follow-up with PCP. - Lab Data Lab Results 11/06/19 11/06/19 Range/Units 08:22 08:22 Urine Color Yellow Urine Appearance Cloudy H (Clear) Urine pH 5.5 (5.0-8.0) Ur Specific [place] 1.023 (1.001-1.035) Urine Protein Negative (Negative) Urine Glucose (UA) Negative (Negative) Urine Ketones Negative (Negative) Urine Blood Negative (Negative) Urine Nitrite Negative (Negative) Urine Bilirubin Negative (Negative) Urine Urobilinogen <2.0 (<2.0) mg/dL Ur Leukocyte Esterase Small H (Negative) Urine RBC 1 (0-5) /hpf Urine WBC 4 (0-5) /hpf Ur Squamous Epith Cells 4 (0-4) /hpf Urine Bacteria Rare H (None) /hpf Urine Mucus Rare H (None) /hpf Urine HCG, Qual Not Detected (Not Detectd) Disposition Clinical Impression: Back spasm Disposition: HOME SELF-CARE Condition: Good Instructions (If sedation given, give patient instructions): Back Pain (ED), Piriformis Syndrome (ED) Additional Instructions: Patient is alternate between heat and ice over the area of tenderness and do passive stretching as discussed. Take anti-inflammatory medication for pain. Follow-up with PCP for further clearance for work. Prescriptions: Cyclobenzaprine [Flexeril] 10 mg PO TID #12 tab Ibuprofen [Motrin] 600 mg PO Q8HR PRN #20 tab PRN Reason: Pain Is patient prescribed a controlled substance at d/c from ED?: No Referrals: Kerri Corcoran MD [Primary Care Provider] - 1-2 days Time of Disposition: 09:23
[2019-11-06 08:31] VITALS: RESP 18
[2019-11-06 08:58] LABS: Appearance,Urine Cloudy (Clear); Bacteria,Urine Rare /hpf; Bilirubin,Urine Negative (Negative); Blood,Urine Negative (Negative); Color,Urine Yellow; Glucose,Urine (UA) Negative (Negative); Ketones,Urine Negative (Negative); Leukocyte Esterase,Urine Small (Negative); Mucus,Urine Rare /hpf; Nitrite,Urine Negative (Negative); PH, Urine 5.5 (5.0-8.0); Protein,Urine Negative (Negative); RBC,Urine 1 /hpf (0-5); Specific Gravity,Urine 1.023 (1.001-1.035); Squamous Epithelial Cell,Urine 4 /hpf (0-4); Urobilinogen,Urine <2.0 mg/dL (<2.0); WBC,Urine 4 /hpf (0-5)
[2019-11-06 09:34] VITALS: BP 139/94; PULSE 86; TEMP 97.8
== END 2019-11-06 09:32 | disposition home or self-care (01) ==
LOC: EC 07:50
DX: M62.830 Muscle spasm of back (principal); F17.200 Nicotine dependence, unspecified, uncomplicated; Z91.048 Other nonmedicinal substance allergy status; Z91.018 Allergy to other foods
CPT/HCPCS: 81001; 81025; 99284; 96372 ×2; J2360; J1885

== ENCOUNTER 2020-01-08 08:10 | Emergency (ER) | payer OTHER ==
[2020-01-08 08:24] VITALS: RESP 18
--- NOTE | 2020-01-08 08:48 | ED ---
Lower Extremity Injury HPI - General Chief Complaint: Extremity Injury, Lower Stated Complaint: knee injury Time Seen by Provider: 01/08/20 08:26 Source: patient, RN notes reviewed Mode of arrival: ambulatory Limitations: no limitations - History of Present Illness Initial Comments: 24-year-old female presents emergency Department chief complaint left knee pain. Patient states that she was with her sister in which she reports she type she states that she felt her knee buckle, pop. Patient states that continues to feel like it popping. Patient states the pain is on the lateral aspect. No prior injuries no prior surgeries. Patient states that it seemed to become more painful over nighttime. Denies any paresthesias. Patient offers no complaints. - Related Data Home Medications Medication Instructions Recorded Confirmed Levonorgestrel [Mirena] 1 implant IY ONCE 11/06/19 11/06/19 Previous Rx's Medication Instructions Recorded Cyclobenzaprine [Flexeril] 10 mg PO TID #12 tab 11/06/19 Cyclobenzaprine [Flexeril] 10 mg PO TID #12 tab 11/06/19 Ibuprofen [Motrin] 600 mg PO Q8HR PRN #20 tab 11/06/19 Ibuprofen [Motrin] 600 mg PO Q8HR PRN #20 tab 01/08/20 Allergies Allergy/AdvReac Type Severity Reaction Status Date / Time iodine Allergy Swelling Verified 01/08/20 08:24 Iodine and Iodide Containing Allergy Swelling Verified 01/08/20 08:24 Produc ragweed pollen Allergy Unknown Verified 01/08/20 08:24 Review of Systems ROS Statement: Those systems with pertinent positive or pertinent negative responses have been documented in the HPI. ROS Other: All systems not noted in ROS Statement are negative. Past Medical History Past Medical History: Asthma, Hypertension Additional Past Medical History / Comment(s): colitis History of Any Multi-Drug Resistant Organisms: None Reported Past Surgical History: Section Past Anesthesia/Blood Transfusion Reactions: No Reported Reaction Past Psychological History: ADD/ADHD, Anxiety, Bipolar, Depression, PTSD Smoking Status: Current every day smoker Past Alcohol Use History: Occasional Past Drug Use History: Marijuana - Past Family History Father History Unknown: Yes Mother History Unknown: Yes Family Medical History: Diabetes Mellitus, Deep Vein Thrombosis (DVT), Myocardial Infarction ([place]), Thyroid Disorder Additional Family Medical History / Comment(s): patient adopted General Exam Limitations: no limitations General appearance: alert, in no apparent distress Head exam: Present: atraumatic, normocephalic, normal inspection Eye exam: Present: normal appearance, PERRL, EOMI. Absent: scleral icterus, conjunctival injection, periorbital swelling ENT exam: Present: normal exam, normal oropharynx, mucous membranes moist Neck exam: Present: normal inspection, full ROM. Absent: tenderness, meningismus, lymphadenopathy Respiratory exam: Present: normal lung sounds bilaterally. Absent: respiratory distress, wheezes, rales, rhonchi, stridor Cardiovascular Exam: Present: regular rate, normal rhythm, normal heart sounds. Absent: systolic murmur, diastolic murmur, rubs, gallop, clicks Extremities exam: Present: other (Left knee there is mild tenderness the lateral portion neurovascular intact no definite laxity there is mild pain with varus stressing) Neurological exam: Present: reflexes normal. Absent: motor sensory deficit Skin exam: Present: warm, dry, intact, normal color. Absent: rash Course Vital Signs 01/08/20 08:19 Temperature 97.7 F Pulse Rate 81 Respiratory 18 Rate Blood Pressure 126/89 O2 Sat by Pulse 98 Oximetry Medical Decision Making - Medical Decision Making X-ray reviewed no acute osseous abnormality. Patient has a left knee sprain possible meniscus or LCL injury. Patient was placed in knee immobilizer and follow-up with orthopedics. Return parameters were discussed. Disposition Clinical Impression: Left knee sprain Disposition: HOME SELF-CARE Condition: Stable Instructions (If sedation given, give patient instructions): Knee Sprain (ED) Additional Instructions: Please return to the Emergency Department if symptoms worsen or any other concerns. Prescriptions: Ibuprofen [Motrin] 600 mg PO Q8HR PRN #20 tab PRN Reason: Pain Is patient prescribed a controlled substance at d/c from ED?: No Referrals: Kerri Corcoran MD [Primary Care Provider] - 1-2 days Time of Disposition: 09:23
--- NOTE | 2020-01-08 09:14 | XR ---
EXAMINATION TYPE: XR knee complete LT DATE OF EXAM: 01/08/2020 CLINICAL HISTORY: Pain after fall injury. TECHNIQUE: Three views of the left knee are obtained. COMPARISON: None. FINDINGS: There is no acute fracture/dislocation evident in left knee. The tri-compartment joint sp aces appear within normal limits. The overlying soft tissue appears unremarkable. IMPRESSION: There is no acute fracture or dislocation in the left knee.
[2020-01-08] MEDS ORDERED: ACET/COD 300 MG/30 MG STARTER PACK 6 TAB BTL PO STA (09:22)
[2020-01-08 09:47] VITALS: BP 135/98; PULSE 76; TEMP 98.2
== END 2020-01-08 08:50 | disposition home or self-care (01) ==
LOC: EC 08:10
DX: S83.92XA Sprain of unspecified site of left knee, initial encounter (principal); F17.200 Nicotine dependence, unspecified, uncomplicated; Z91.041 Radiographic dye allergy status; Z91.048 Other nonmedicinal substance allergy status; Z79.3 Long term (current) use of hormonal contraceptives; W01.0XXA Fall on same level from slipping, tripping and stumbling without subsequent striking against object, initial encounter; Y93.89 Activity, other specified
CPT/HCPCS: 99283

== ENCOUNTER 2020-06-17 12:07 | Emergency (ER) | payer OTHER ==
[2020-06-17 13:24] LABS: Glucose,Whole Blood 108 mg/dL (75-99)
[2020-06-17 13:42] LABS: Appearance,Urine Clear (Clear); Bilirubin,Urine Negative (Negative); Blood,Urine Negative (Negative); Color,Urine Yellow; Glucose,Urine (UA) Negative (Negative); Ketones,Urine Negative (Negative); Leukocyte Esterase,Urine Small (Negative); Mucus,Urine Rare /hpf; Nitrite,Urine Negative (Negative); PH, Urine 6.5 (5.0-8.0); Protein,Urine Negative (Negative); Specific Gravity,Urine 1.026 (1.001-1.035); Squamous Epithelial Cell,Urine 2 /hpf (0-4); Urobilinogen,Urine <2.0 mg/dL (<2.0); WBC,Urine 7 /hpf (0-5)
--- NOTE | 2020-06-17 14:28 | ED ---
General Adult HPI - General Chief complaint: Headache Stated complaint: lightheaded, headaches Time Seen by Provider: 06/17/20 12:28 Source: patient Mode of arrival: ambulatory Limitations: no limitations - History of Present Illness Initial comments: 24-year-old female patient presents to the emergency department today for evaluation of lightheadedness, intermittent headache. Patient states she's been having symptoms for the last several weeks. States that over the last 2 weeks that seems movement, worse. States her headaches are sharp stabbing pains to the forehead the last just for a few seconds and go away. She has no current headache. States she was at work today and started to feel little more lightheaded than usual. She is concerned she may have diabetes. States she is thirsty and has increasing urination. Denies any dysuria or hematuria. States that she did have an eye exam last October. Denies any nausea, vomiting, numbness, tingling to her extremities. Denies any syncope. She has an IUD that expires in 3 months. Patient denies any recent rash, fever, chills, cough, shortness of breath, chest pain, abdominal pain, nausea, vomiting, diarrhea, constipation, back pain, headache, visual changes, or any other complaints. - Related Data Home Medications Medication Instructions Recorded Confirmed No Known Home Medications 06/17/20 06/17/20 Allergies Allergy/AdvReac Type Severity Reaction Status Date / Time iodine Allergy Swelling Verified 06/17/20 13:38 Iodine and Iodide Containing Allergy Swelling Verified 06/17/20 13:38 Produc ragweed pollen Allergy Unknown Verified 06/17/20 13:38 Review of Systems ROS Statement: Those systems with pertinent positive or pertinent negative responses have been documented in the HPI. ROS Other: All systems not noted in ROS Statement are negative. Past Medical History Past Medical History: Asthma, Hypertension Additional Past Medical History / Comment(s): colitis History of Any Multi-Drug Resistant Organisms: None Reported Past Surgical History: Section Past Anesthesia/Blood Transfusion Reactions: No Reported Reaction Past Psychological History: ADD/ADHD, Anxiety, Bipolar, Depression, PTSD Smoking Status: Current every day smoker Past Alcohol Use History: Occasional Past Drug Use History: Marijuana - Past Family History Father History Unknown: Yes Mother History Unknown: Yes Family Medical History: Diabetes Mellitus, Deep Vein Thrombosis (DVT), Myocardial Infarction ([place]), Thyroid Disorder Additional Family Medical History / Comment(s): patient adopted General Exam Limitations: no limitations General appearance: alert, in no apparent distress, other (Physical well- developed, well-nourished adult female patient in no acute distress. Vital signs upon presentation are temperature 98.2F, pulse 93, respirations 20, blood pressure 151/89, pulse ox 99% on room air.) Eye exam: Present: normal appearance, PERRL, EOMI. Absent: scleral icterus, conjunctival injection, periorbital swelling ENT exam: Present: normal exam, normal oropharynx, mucous membranes moist Respiratory exam: Present: normal lung sounds bilaterally. Absent: respiratory distress, wheezes, rales, rhonchi, stridor Cardiovascular Exam: Present: regular rate, normal rhythm, normal heart sounds. Absent: systolic murmur, diastolic murmur, rubs, gallop, clicks GI/Abdominal exam: Present: soft, normal bowel sounds. Absent: distended, tenderness, guarding, rebound, rigid Neurological exam: Present: alert, oriented X3, CN II-XII intact Expanded Speech: Present: fluid speech Cranial nerves: EOM's Intact: Normal, Nystagmus: Normal Motor strength exam: RUE: 5, LUE: 5, RLE: 5, LLE: 5 Eye Response: (4) open spontaneously Motor Response: (6) obeys commands Verbal Response: (5) oriented Frances Total: 15 Psychiatric exam: Present: normal affect, normal mood Skin exam: Present: warm, dry, intact, normal color. Absent: rash Course Vital Signs 06/17/20 06/17/20 12:10 14:42 Temperature 98.2 F 98.1 F Pulse Rate 93 87 Respiratory 20 18 Rate Blood Pressure 151/89 131/87 O2 Sat by Pulse 99 99 Oximetry Medical Decision Making - Medical Decision Making 24 year-old female patient presented to the emergency department today for evaluation of lightheadedness and intermittent headaches over the last several weeks. Physical examination is unremarkable. She is neurologically intact with no focal deficits. Blood glucose is 109, urinalysis is negative, no glucose in the urine. HCG is negative. I did discuss findings and results with her. She'll be discharged pop with her primary care physician, she has appointment on . Return parameters were discussed in detail. She verbalizes understanding and agrees with this plan. Case discussed with my attending Dr. Arvizu. - Lab Data Lab Results 06/17/20 06/17/20 06/17/20 Range/Units 13:16 13:16 13:22 POC Glucose (mg/dL) 108 H (75-99) mg/dL POC Glu Baseball Pitcher ID Sarah Novak Urine Color Yellow Urine Appearance Clear (Clear) Urine pH 6.5 (5.0-8.0) Ur Specific [place] 1.026 (1.001-1.035) Urine Protein Negative (Negative) Urine Glucose (UA) Negative (Negative) Urine Ketones Negative (Negative) Urine Blood Negative (Negative) Urine Nitrite Negative (Negative) Urine Bilirubin Negative (Negative) Urine Urobilinogen <2.0 (<2.0) mg/dL Ur Leukocyte Esterase Small H (Negative) Urine WBC 7 H (0-5) /hpf Ur Squamous Epith Cells 2 (0-4) /hpf Urine Mucus Rare H (None) /hpf Urine HCG, Qual Not Detected (Not Detectd) Disposition Clinical Impression: Dizziness, Paresthesia Disposition: HOME SELF-CARE Condition: Good Instructions (If sedation given, give patient instructions): Paresthesia (ED), Dizziness (ED) Additional Instructions: Follow up with your primary care physician for recheck in 1-2 days. Return to the emergency department for any new, worsening, or concerning symptoms. Is patient prescribed a controlled substance at d/c from ED?: No Referrals: Kerri Corcoran MD [Primary Care Provider] - 1-2 days Time of Disposition: 14:28
[2020-06-17 14:43] VITALS: BP 131/87; PULSE 87; RESP 18; TEMP 98.1
== END 2020-06-17 14:43 | disposition home or self-care (01) ==
LOC: EC 12:07
DX: R42 Dizziness and giddiness (principal); R20.2 Paresthesia of skin; F17.200 Nicotine dependence, unspecified, uncomplicated; Z91.048 Other nonmedicinal substance allergy status
CPT/HCPCS: 36415; 81001; 81025; 99284

== ENCOUNTER 2020-12-08 20:37 | Emergency (ER) | payer OTHER ==
[2020-12-08] MEDS ORDERED: KETOROLAC 15 MG/ML 1 ML VIAL IVP STA (20:53)
[2020-12-08] MEDS ORDERED: SODIUM CHLORIDE 0.9% 1,000 ML IV STA (20:53)
[2020-12-08] MEDS ORDERED: ONDANSETRON 4 MG/2 ML VIAL IVP STA (20:53)
[2020-12-08 21:22] VITALS: RESP 18
[2020-12-08 21:50] LABS: ALT 27 U/L (4-34); AST 30 U/L (14-36); African American GFR (CKD) >90 (>60 ml/min/1.73 sqM); Albumin 4.8 g/dL (3.5-5.0); Alkaline Phosphatase 87 U/L (38-126); Amylase 59 U/L (30-110); Anion Gap 9 mmol/L; Blood Urea Nitrogen 17 mg/dL (7-17); Calcium 10.1 mg/dL (8.4-10.2); Carbon Dioxide 25 mmol/L (22-30); Chloride 105 mmol/L (98-107); Glucose 120 mg/dL (74-99); Lipase 51 U/L (23-300); Non-African American GFR(CKD) >90 (>60 ml/min/1.73 sqM); Potassium 4.3 mmol/L (3.5-5.1); Sodium 139 mmol/L (137-145); Total Bilirubin 0.2 mg/dL (0.2-1.3); Total Protein 8.1 g/dL (6.3-8.2)
[2020-12-08 21:55] LABS: Basophils # (A) 0.1 k/uL (0-0.2); Basophils % (A) 0 %; Eosinophils # (A) 0.1 k/uL (0-0.7); Eosinophils % (A) 1 %; HCT 42.6 % (34.0-46.0); HGB 13.6 gm/dL (11.4-16.0); Lymphocytes # (A) 3.5 k/uL (1.0-4.8); Lymphocytes % (A) 24 %; MCH 29.1 pg (25.0-35.0); Mean Platelet Volume 6.4; Monocytes # (A) 0.6 k/uL (0-1.0); Monocytes % (A) 4 %; Neutrophils # (A) 9.9 k/uL (1.3-7.7); Neutrophils % (A) 69 %; Platelet Count 441 k/uL (150-450); RBC 4.68 m/uL (3.80-5.40); RDW 13.9 % (11.5-15.5); WBC 14.3 k/uL (3.8-10.6)
--- NOTE | 2020-12-08 22:53 | CT ---
EXAMINATION TYPE: CT abdomen pelvis wo con DATE OF EXAM: 12/08/2020 COMPARISON: 02/17/2017 HISTORY: abd pain and flank pain CT DLP: 1134.4 mGycm Automated exposure control for dose reduction was used. Lung bases are clear. There is no pleural effusion. Heart size is normal. There is no pericardial eff usion. Liver spleen stomach pancreas appear intact. Gallbladder is intact. Exam limited by motion. Th ere is no mesenteric edema. There is no adrenal mass. Kidneys have normal size. There is no hydroneph rosis. Ureters are not dilated. Bladder distends smoothly. There is no inguinal hernia. There is no f ree fluid in the pelvis. There is tiny amount of free fluid in the cul-de-sac. Uterus is anteverted. There is IUD in the uterine fundus. There is no evidence of a pelvic mass. There is no ascites or free air. There is no sign of a bowel obstruction. Appendix is medial and appe ars normal. Lumbar vertebra have normal alignment. There is no compression fracture. Bony pelvis is i ntact. The hip joints are intact. IMPRESSION: Small amount of low-density free fluid in the cul-de-sac is probably physiologic. Normal appendix. No evidence of renal stone or obstruction.
--- NOTE | 2020-12-08 23:19 | XR ---
EXAMINATION TYPE: XR KUB DATE OF EXAM: 12/08/2020 COMPARISON: 03/28/2017 HISTORY: Abdominal pain TECHNIQUE: 2 views upright FINDINGS: There are some distended small bowel loops with air and fluid. There is no evidence of free air. Lung bases are clear. There are no pathologic calcifications over the kidneys. IMPRESSION: There is some distended small bowel in the left upper quadrant that could relate to ileus . Partial mechanical obstruction not excluded. This is a change compared to old exam.
--- NOTE | 2020-12-09 00:14 | ED ---
Abdominal Pain HPI - General Source: patient, RN notes reviewed Mode of arrival: ambulatory Limitations: no limitations <Doug Bland - Last Filed: 12/09/20 00:11> <Mac Menard - Last Filed: 12/09/20 01:10> - General Chief Complaint: Abdominal Pain Stated Complaint: Abd pain Time Seen by Provider: 12/08/20 20:46 - History of Present Illness Initial Comments: Patient is a 25-year-old female that presents to emergency room complaining of lower abdominal pain 2 hours. She notes that she did have nausea vomiting. She notes that she is not . She denied any abdominal surgical history. She was otherwise a well-appearing 25-year-old female who appeared to be in moderate amounts of pain while sitting in bed in exam interview. She denied any chest pain shortness of breath headache diarrhea constipation fever fatigue chills. (Doug Bland) - Related Data Home Medications Medication Instructions Recorded Confirmed No Known Home Medications 06/17/20 12/08/20 Allergies Allergy/AdvReac Type Severity Reaction Status Date / Time iodine Allergy Swelling Verified 12/08/20 22:37 Iodine and Iodide Containing Allergy Swelling Verified 12/08/20 22:37 Produc ragweed pollen Allergy Unknown Verified 12/08/20 22:37 Review of Systems ROS Other: All systems not noted in ROS Statement are negative. <Doug Bland - Last Filed: 12/09/20 00:11> ROS Other: All systems not noted in ROS Statement are negative. <Mac Menard - Last Filed: 12/09/20 01:10> ROS Statement: Those systems with pertinent positive or pertinent negative responses have been documented in the HPI. Past Medical History Past Medical History: Asthma, Hypertension Additional Past Medical History / Comment(s): colitis History of Any Multi-Drug Resistant Organisms: None Reported Past Surgical History: Section Past Anesthesia/Blood Transfusion Reactions: No Reported Reaction Past Psychological History: ADD/ADHD, Anxiety, Bipolar, Depression, PTSD Smoking Status: Current every day smoker Past Alcohol Use History: Occasional Past Drug Use History: Marijuana - Past Family History Father History Unknown: Yes Mother History Unknown: Yes Family Medical History: Diabetes Mellitus, Deep Vein Thrombosis (DVT), Myocardial Infarction ([place]), Thyroid Disorder Additional Family Medical History / Comment(s): patient adopted <Doug Bland - Last Filed: 12/09/20 00:11> General Exam Limitations: no limitations General appearance: alert, in no apparent distress Head exam: Present: atraumatic, normocephalic, normal inspection Eye exam: Present: normal appearance, PERRL, EOMI. Absent: scleral icterus, conjunctival injection, periorbital swelling Neck exam: Present: normal inspection Respiratory exam: Present: normal lung sounds bilaterally. Absent: respiratory distress, wheezes, rales, rhonchi, stridor Cardiovascular Exam: Present: regular rate GI/Abdominal exam: Present: soft, tenderness (Nonspecific, generalized lower abdomen.), normal bowel sounds. Absent: distended, guarding, rebound, rigid Extremities exam: Present: normal inspection, full ROM, normal capillary refill. Absent: tenderness, pedal edema, joint swelling, calf tenderness Neurological exam: Present: alert, oriented X3 Psychiatric exam: Present: normal affect, normal mood Skin exam: Present: warm, dry, intact, normal color. Absent: rash <Doug Bland - Last Filed: 12/09/20 00:11> Course Vital Signs 12/08/20 12/08/20 12/08/20 20:42 21:20 23:04 Temperature 98.0 F Pulse Rate 90 79 88 Respiratory 22 18 18 Rate Blood Pressure 131/88 117/78 127/80 O2 Sat by Pulse 98 97 98 Oximetry 12/09/20 00:12 Temperature Pulse Rate 89 Respiratory 18 Rate Blood Pressure 140/100 O2 Sat by Pulse 98 Oximetry Medical Decision Making - Lab Data Result diagrams: 12/08/20 21:03 12/08/20 21:03 - Radiology Data Radiology results: report reviewed, image reviewed <Doug Bland - Last Filed: 12/09/20 00:11> - Lab Data Result diagrams: 12/08/20 21:03 12/08/20 21:03 <Mac Menard - Last Filed: 12/09/20 01:10> - Medical Decision Making 25-year-old female complaining of lower abdominal pain for the past several hours. Labs, 1 L normal saline, 50 mg of Toradol, 4 mg Zofran, CT the abdomen and pelvis ordered. Labs, white blood cells 14.3, rest of labs unremarkable. CT negative for any acute process. (Doug Bland) - Lab Data Lab Results 12/08/20 12/08/20 12/08/20 Range/Units 21:03 21:03 21:03 WBC 14.3 H (3.8-10.6) k/uL RBC 4.68 (3.80-5.40) m/uL Hgb 13.6 (11.4-16.0) gm/dL Hct 42.6 (34.0-46.0) % MCV 91.0 (80.0-100.0) fL MCH 29.1 (25.0-35.0) pg MCHC 32.0 (31.0-37.0) g/dL RDW 13.9 (11.5-15.5) % Plt Count 441 (150-450) k/uL MPV 6.4 Neutrophils % 69 % Lymphocytes % 24 % Monocytes % 4 % Eosinophils % 1 % Basophils % 0 % Neutrophils # 9.9 H (1.3-7.7) k/uL Lymphocytes # 3.5 (1.0-4.8) k/uL Monocytes # 0.6 (0-1.0) k/uL Eosinophils # 0.1 (0-0.7) k/uL Basophils # 0.1 (0-0.2) k/uL Sodium 139 (137-145) mmol/L Potassium 4.3 (3.5-5.1) mmol/L Chloride 105 (98-107) mmol/L Carbon Dioxide 25 (22-30) mmol/L Anion Gap 9 mmol/L BUN 17 (7-17) mg/dL Creatinine 0.65 (0.52-1.04) mg/dL Est GFR (CKD-EPI)AfAm >90 (>60 ml/min/1.73 sqM) Est GFR (CKD-EPI)NonAf >90 (>60 ml/min/1.73 sqM) Glucose 120 H (74-99) mg/dL Plasma Lactic Acid Howard (0.7-2.0) mmol/L Calcium 10.1 (8.4-10.2) mg/dL Total Bilirubin 0.2 (0.2-1.3) mg/dL AST 30 (14-36) U/L ALT 27 (4-34) U/L Alkaline Phosphatase 87 (38-126) U/L Total Protein 8.1 (6.3-8.2) g/dL Albumin 4.8 (3.5-5.0) g/dL Amylase 59 (30-110) U/L Lipase 51 (23-300) U/L Urine Color Urine Appearance (Clear) Urine pH (5.0-8.0) Ur Specific [place] (1.001-1.035) Urine Protein (Negative) Urine Glucose (UA) (Negative) Urine Ketones (Negative) Urine Blood (Negative) Urine Nitrite (Negative) Urine Bilirubin (Negative) Urine Urobilinogen (<2.0) mg/dL Ur Leukocyte Esterase (Negative) Urine RBC (0-5) /hpf Urine WBC (0-5) /hpf Ur Squamous Epith Cells (0-4) /hpf Urine Mucus (None) /hpf Urine HCG, Qual Not Detected (Not Detectd) 12/08/20 12/09/20 Range/Units 21:03 00:50 WBC (3.8-10.6) k/uL RBC (3.80-5.40) m/uL Hgb (11.4-16.0) gm/dL Hct (34.0-46.0) % MCV (80.0-100.0) fL MCH (25.0-35.0) pg MCHC (31.0-37.0) g/dL RDW (11.5-15.5) % Plt Count (150-450) k/uL MPV Neutrophils % % Lymphocytes % % Monocytes % % Eosinophils % % Basophils % % Neutrophils # (1.3-7.7) k/uL Lymphocytes # (1.0-4.8) k/uL Monocytes # (0-1.0) k/uL Eosinophils # (0-0.7) k/uL Basophils # (0-0.2) k/uL Sodium (137-145) mmol/L Potassium (3.5-5.1) mmol/L Chloride (98-107) mmol/L Carbon Dioxide (22-30) mmol/L Anion Gap mmol/L BUN (7-17) mg/dL Creatinine (0.52-1.04) mg/dL Est GFR (CKD-EPI)AfAm (>60 ml/min/1.73 sqM) Est GFR (CKD-EPI)NonAf (>60 ml/min/1.73 sqM) Glucose (74-99) mg/dL Plasma Lactic Acid Howard 1.5 (0.7-2.0) mmol/L Calcium (8.4-10.2) mg/dL Total Bilirubin (0.2-1.3) mg/dL AST (14-36) U/L ALT (4-34) U/L Alkaline Phosphatase (38-126) U/L Total Protein (6.3-8.2) g/dL Albumin (3.5-5.0) g/dL Amylase (30-110) U/L Lipase (23-300) U/L Urine Color Yellow Urine Appearance Cloudy H (Clear) Urine pH 6.5 (5.0-8.0) Ur Specific [place] 1.020 (1.001-1.035) Urine Protein Negative (Negative) Urine Glucose (UA) Negative (Negative) Urine Ketones Negative (Negative) Urine Blood Small H (Negative) Urine Nitrite Negative (Negative) Urine Bilirubin Negative (Negative) Urine Urobilinogen <2.0 (<2.0) mg/dL Ur Leukocyte Esterase Trace H (Negative) Urine RBC <1 (0-5) /hpf Urine WBC 2 (0-5) /hpf Ur Squamous Epith Cells 4 (0-4) /hpf Urine Mucus Occasional H (None) /hpf Urine HCG, Qual (Not Detectd) - Radiology Data CT the abdomen and pelvis: Small amount of low density free fluid and [place] probably physiologic. Normal appendix. No evidence of renal stone obstruction. (Doug Bland) Disposition <Doug Bland - Last Filed: 12/09/20 00:11> Is patient prescribed a controlled substance at d/c from ED?: No <Mac Menard - Last Filed: 12/09/20 01:10> Clinical Impression: Abdominal colic, Abdominal pain Disposition: HOME SELF-CARE Condition: Good Instructions (If sedation given, give patient instructions): Abdominal Pain (ED) Referrals: Kerri Corcoran MD [Primary Care Provider] - 1-2 days
[2020-12-09 01:07] LABS: Appearance,Urine Cloudy (Clear); Bilirubin,Urine Negative (Negative); Blood,Urine Small (Negative); Color,Urine Yellow; Glucose,Urine (UA) Negative (Negative); Ketones,Urine Negative (Negative); Leukocyte Esterase,Urine Trace (Negative); Mucus,Urine Occasional /hpf; Nitrite,Urine Negative (Negative); PH, Urine 6.5 (5.0-8.0); Protein,Urine Negative (Negative); RBC,Urine <1 /hpf (0-5); Squamous Epithelial Cell,Urine 4 /hpf (0-4); Urobilinogen,Urine <2.0 mg/dL (<2.0); WBC,Urine 2 /hpf (0-5)
[2020-12-09 01:22] VITALS: BP 137/86; PULSE 92; TEMP 97.6
== END 2020-12-09 01:21 | disposition home or self-care (01) ==
LOC: EC 20:37
DX: R10.84 Generalized abdominal pain (principal); J45.909 Unspecified asthma, uncomplicated; I10 Essential (primary) hypertension; F17.200 Nicotine dependence, unspecified, uncomplicated; Z88.8 Allergy status to other drugs, medicaments and biological substances; Z91.048 Other nonmedicinal substance allergy status
CPT/HCPCS: 36415; 80053; 82150; 83605; 83690; 85025; 81025; 74018; 74176; 99284; 96374; 96375; 96361; J2405; J1885; 81001

== ENCOUNTER 2021-07-22 02:29 | Emergency (ER) | payer OTHER ==
[2021-07-22] MEDS ORDERED: IBUPROFEN 400 MG TAB PO STA (03:27)
--- NOTE | 2021-07-22 05:07 | XR ---
EXAMINATION TYPE: XR chest 2V DATE OF EXAM: 07/22/2021 COMPARISON: 01/26/2019 HISTORY: Cough. Congestion TECHNIQUE: 2 views FINDINGS: Heart and mediastinum are normal. Lungs are clear. Diaphragm is normal. Bony thorax appears normal. IMPRESSION: Normal chest. No change.
[2021-07-22 06:09] LABS: Amorphous Sediment,Urine Occasional /hpf; Appearance,Urine Cloudy (Clear); Bilirubin,Urine Negative (Negative); Blood,Urine Negative (Negative); Color,Urine Yellow; Glucose,Urine (UA) Negative (Negative); Ketones,Urine Negative (Negative); Leukocyte Esterase,Urine Trace (Negative); Mucus,Urine Occasional /hpf; Nitrite,Urine Negative (Negative); Protein,Urine Negative (Negative); RBC,Urine 2 /hpf (0-5); Specific Gravity,Urine 1.023 (1.001-1.035); Squamous Epithelial Cell,Urine 33 /hpf (0-4); WBC,Urine 8 /hpf (0-5)
--- NOTE | 2021-07-22 06:15 | ED ---
General Adult HPI - General Chief complaint: Headache Stated complaint: Headache Time Seen by Provider: 07/22/21 03:05 Source: patient Mode of arrival: ambulatory - History of Present Illness Initial comments: Patient is 25-year-old woman presenting to have evaluation for cough, congestion, headache. Patient notes had exposure to relative with influenza. -: hour(s) Location: head Radiation: non-radiation Consistency: constant Improves with: none Worsens with: none Associated Symptoms: cough, headaches - Related Data Home Medications Medication Instructions Recorded Confirmed No Known Home Medications 06/17/20 12/08/20 Allergies Allergy/AdvReac Type Severity Reaction Status Date / Time iodine Allergy Swelling Verified 07/22/21 02:39 Iodine and Iodide Containing Allergy Swelling Verified 07/22/21 02:39 Produc ragweed pollen Allergy Unknown Verified 07/22/21 02:39 Review of Systems ROS Statement: Those systems with pertinent positive or pertinent negative responses have been documented in the HPI. ROS Other: All systems not noted in ROS Statement are negative. Constitutional: Reports: fever. Denies: chills, weakness Eyes: Denies: vision change ENT: Reports: congestion Respiratory: Reports: cough. Denies: dyspnea Cardiovascular: Denies: chest pain, palpitations Gastrointestinal: Denies: abdominal pain, vomiting, diarrhea Musculoskeletal: Denies: back pain Skin: Denies: rash Neurological: Reports: headache Past Medical History Past Medical History: Asthma, Hypertension Additional Past Medical History / Comment(s): colitis History of Any Multi-Drug Resistant Organisms: None Reported Past Surgical History: Section Past Anesthesia/Blood Transfusion Reactions: No Reported Reaction Past Psychological History: ADD/ADHD, Anxiety, Bipolar, Depression, PTSD Smoking Status: Vaper Past Alcohol Use History: Occasional Past Drug Use History: Marijuana - Past Family History Father History Unknown: Yes Mother History Unknown: Yes Family Medical History: Diabetes Mellitus, Deep Vein Thrombosis (DVT), Myocardial Infarction ([place]), Thyroid Disorder Additional Family Medical History / Comment(s): patient adopted General Exam General appearance: alert, in no apparent distress Head exam: Present: atraumatic, normocephalic Eye exam: Present: normal appearance, PERRL, EOMI. Absent: scleral icterus, conjunctival injection, nystagmus ENT exam: Present: normal oropharynx Neck exam: Present: normal inspection, full ROM. Absent: tenderness, meningismus, lymphadenopathy Respiratory exam: Present: normal lung sounds bilaterally. Absent: respiratory distress, wheezes, rales, rhonchi, stridor Cardiovascular Exam: Present: regular rate, normal rhythm, normal heart sounds. Absent: systolic murmur, diastolic murmur, rubs, gallop GI/Abdominal exam: Present: soft. Absent: tenderness Back exam: Present: normal inspection. Absent: CVA tenderness (R), CVA tenderness (L) Neurological exam: Present: alert, oriented X3, CN II-XII intact. Absent: motor sensory deficit Skin exam: Present: warm, dry, intact, normal color. Absent: rash Course Vital Signs 07/22/21 07/22/21 02:33 06:17 Temperature 100.9 F H 98.2 F Pulse Rate 109 H 74 Respiratory 18 16 Rate Blood Pressure 161/106 118/75 O2 Sat by Pulse 99 98 Oximetry Medical Decision Making - Lab Data Lab Results 07/22/21 07/22/21 07/22/21 Range/Units 03:26 03:26 05:30 Urine Color Yellow Urine Appearance Cloudy H (Clear) Urine pH 8.0 (5.0-8.0) Ur Specific [place] 1.023 (1.001-1.035) Urine Protein Negative (Negative) Urine Glucose (UA) Negative (Negative) Urine Ketones Negative (Negative) Urine Blood Negative (Negative) Urine Nitrite Negative (Negative) Urine Bilirubin Negative (Negative) Urine Urobilinogen 2.0 (<2.0) mg/dL Ur Leukocyte Esterase Trace H (Negative) Urine RBC 2 (0-5) /hpf Urine WBC 8 H (0-5) /hpf Ur Squamous Epith Cells 33 H (0-4) /hpf Amorphous Sediment Occasional H (None) /hpf Urine Mucus Occasional H (None) /hpf Coronavirus (PCR) Not Detected (Not Detectd) Influenza Type A RNA Not Detected (Not Detectd) Influenza Type B (PCR) Not Detected (Not Detectd) Disposition Clinical Impression: Viral syndrome Disposition: HOME SELF-CARE Condition: Good Instructions (If sedation given, give patient instructions): Viral Syndrome (ED) Is patient prescribed a controlled substance at d/c from ED?: No Referrals: Kerri Corcoran MD [Primary Care Provider] - 1-2 days
[2021-07-22 06:18] VITALS: BP 118/75; PULSE 74; RESP 16; TEMP 98.2
== END 2021-07-22 06:35 | disposition home or self-care (01) ==
LOC: EC 02:29
DX: B34.9 Viral infection, unspecified (principal); F17.290 Nicotine dependence, other tobacco product, uncomplicated; J45.909 Unspecified asthma, uncomplicated; I10 Essential (primary) hypertension; Z91.041 Radiographic dye allergy status; Z20.822 Contact with and (suspected) exposure to COVID-19; Z88.8 Allergy status to other drugs, medicaments and biological substances; Z91.018 Allergy to other foods
CPT/HCPCS: 71046; 81001; 87502; 87635; 99284

== ENCOUNTER 2022-01-20 14:02 | Emergency (ER) | payer OTHER ==
[2022-01-20 14:11] VITALS: PULSE 74; RESP 16; TEMP 98
--- NOTE | 2022-01-20 14:37 | XR ---
EXAMINATION TYPE: XR knee 4V RT DATE OF EXAM: 01/20/2022 COMPARISON: NONE HISTORY: 26-year-old female right knee pain and swelling after fall TECHNIQUE: 4 views FINDINGS: No knee joint effusion. Extensor mechanism appears intact. No acute fracture fracture or di slocation. Slight lateral patellar translation noted. IMPRESSION: No acute osseous abnormality seen. Merchants view shows slight lateral patellar translation that coul d reflect some degree of underlying patellar malalignment/tracking disorder or instability.
[2022-01-20] MEDS ORDERED: ACET/COD 300 MG/30 MG STARTER PACK 6 TAB BTL PO STA (15:12)
--- NOTE | 2022-01-20 15:12 | ED ---
Lower Extremity Injury HPI - General Chief Complaint: Extremity Injury, Lower Stated Complaint: rt knee pain/slide down steps Time Seen by Provider: 01/20/22 14:52 Source: patient, RN notes reviewed Mode of arrival: wheelchair Limitations: no limitations - History of Present Illness Initial Comments: 26-year-old female presents emergency from chief complaint right knee pain. Patient states she is going on since yesterday that she twists her knee. The medial knee pain worse with full straightening, no paresthesias patient has no prior knee pain. Patient denies any prior surgeries. Patient states she is able to family but is painful. - Related Data Previous Rx's Medication Instructions Recorded Ondansetron Odt [Zofran Odt] 4 mg PO Q8HR PRN #10 tab 11/24/21 Ibuprofen [Motrin] 600 mg PO Q8HR PRN #30 tab 01/20/22 Allergies Allergy/AdvReac Type Severity Reaction Status Date / Time iodine Allergy Swelling Verified 11/23/21 22:04 Iodine and Iodide Containing Allergy Swelling Verified 11/23/21 22:04 Produc ragweed pollen Allergy Unknown Verified 11/23/21 22:04 Review of Systems ROS Statement: Those systems with pertinent positive or pertinent negative responses have been documented in the HPI. ROS Other: All systems not noted in ROS Statement are negative. Past Medical History Past Medical History: Asthma, Hypertension Additional Past Medical History / Comment(s): colitis History of Any Multi-Drug Resistant Organisms: None Reported Past Surgical History: Section Past Anesthesia/Blood Transfusion Reactions: No Reported Reaction Past Psychological History: ADD/ADHD, Anxiety, Bipolar, Depression, PTSD Smoking Status: Vaper Past Alcohol Use History: Occasional Past Drug Use History: Marijuana - Past Family History Father History Unknown: Yes Mother History Unknown: Yes Family Medical History: Diabetes Mellitus, Deep Vein Thrombosis (DVT), Myocardial Infarction ([place]), Thyroid Disorder Additional Family Medical History / Comment(s): patient adopted General Exam Limitations: no limitations General appearance: alert, in no apparent distress Head exam: Present: atraumatic, normocephalic, normal inspection Eye exam: Present: normal appearance, PERRL, EOMI. Absent: scleral icterus, conjunctival injection, periorbital swelling Respiratory exam: Present: normal lung sounds bilaterally. Absent: respiratory distress, wheezes, rales, rhonchi, stridor Cardiovascular Exam: Present: regular rate, normal rhythm, normal heart sounds. Absent: systolic murmur, diastolic murmur, rubs, gallop, clicks Extremities exam: Present: other (Right knee there is medial knee tenderness, no laxity noted neurovascular intact) Course Vital Signs 01/20/22 14:08 Temperature 98 F Pulse Rate 74 Respiratory 16 Rate Blood Pressure 136/77 O2 Sat by Pulse 99 Oximetry Medical Decision Making - Medical Decision Making X-ray shows mild effusion, no bony abnormality patient discharged in stable condition. Disposition Clinical Impression: Right knee sprain Disposition: HOME SELF-CARE Condition: Stable Instructions (If sedation given, give patient instructions): Knee Sprain (ED) Additional Instructions: Please return to the Emergency Department if symptoms worsen or any other concerns. Prescriptions: Ibuprofen [Motrin] 600 mg PO Q8HR PRN #30 tab PRN Reason: Pain Is patient prescribed a controlled substance at d/c from ED?: No Referrals: Kerri Corcoran MD [Primary Care Provider] - 1-2 days Time of Disposition: 15:12
[2022-01-20 15:31] VITALS: BP 139/76
== END 2022-01-20 15:33 | disposition home or self-care (01) ==
LOC: EC 14:02
DX: S83.91XA Sprain of unspecified site of right knee, initial encounter (principal); I10 Essential (primary) hypertension; J45.909 Unspecified asthma, uncomplicated; F90.9 Attention-deficit hyperactivity disorder, unspecified type; F41.9 Anxiety disorder, unspecified; F31.9 Bipolar disorder, unspecified; F17.290 Nicotine dependence, other tobacco product, uncomplicated; F12.90 Cannabis use, unspecified, uncomplicated; W10.9XXA Fall (on) (from) unspecified stairs and steps, initial encounter
CPT/HCPCS: 99283

== ENCOUNTER 2022-04-03 09:15 | Emergency (ER) | payer OTHER ==
[2022-04-03] MEDS ORDERED: ONDANSETRON 4 MG/2 ML VIAL IVP STA (09:21)
[2022-04-03] MEDS ORDERED: PANTOPRAZOLE 40 MG/10 ML VIAL IVP STA (09:21)
[2022-04-03] MEDS ORDERED: SODIUM CHLORIDE 0.9% 1,000 ML IV STA (09:21)
[2022-04-03] MEDS ORDERED: KETOROLAC 15 MG/ML 1 ML VIAL IVP STA (09:21)
[2022-04-03 09:22] VITALS: TEMP 97.4
[2022-04-03 10:30] LABS: Amorphous Sediment,Urine Many /hpf; Appearance,Urine Turbid (Clear); Bacteria,Urine Rare /hpf; Bilirubin,Urine Negative (Negative); Blood,Urine Negative (Negative); Color,Urine Yellow; Glucose,Urine (UA) Negative (Negative); Ketones,Urine Negative (Negative); Leukocyte Esterase,Urine Moderate (Negative); Mucus,Urine Many /hpf; Nitrite,Urine Negative (Negative); PH, Urine 5.5 (5.0-8.0); Protein,Urine Trace (Negative); Specific Gravity,Urine 1.032 (1.001-1.035); Squamous Epithelial Cell,Urine 9 /hpf (0-4); Urobilinogen,Urine <2.0 mg/dL (<2.0); WBC,Urine 3 /hpf (0-5)
--- NOTE | 2022-04-03 11:06 | US ---
EXAMINATION TYPE: US gallbladder DATE OF EXAM: 04/03/2022 COMPARISON: NONE CLINICAL HISTORY: epigastric pain. TECHNIQUE: Multiple sonographic images of the right upper quadrant are obtained. FINDINGS: EXAM MEASUREMENTS: Liver Length: 17.6 cm Gallbladder Wall: 0.2 cm CBD: 0.3 cm Right Kidney: 11.1 x 4.8 x 5.1cm ERP IMPLEMENTATION CONSULTANT NOTES: Morbidly obese patient with extensive midline bowel gas, technically difficult and limited study. Pancreas: Obscured by bowel gas Liver: Increased attenuation, decreased visualization of vessels suggestive of fatty infiltrate, upp er limits of normal in size Gallbladder: wnl as seen, limited views Evidence for sonographic Garvin's sign: No CBD: limited visualization Right Kidney: Partially obscured by overlying bowel gas, wnl as seen IMPRESSION: No evidence for acute process.
[2022-04-03 11:34] LABS: Basophils % (A) 0 %; Eosinophils # (A) 0.1 k/uL (0-0.7); Eosinophils % (A) 1 %; HCT 38.4 % (34.0-46.0); Lymphocytes % (A) 10 %; MCH 29.7 pg (25.0-35.0); MCHC 33.8 g/dL (31.0-37.0); MCV 87.8 fL (80.0-100.0); Mean Platelet Volume 7.4; Monocytes # (A) 0.4 k/uL (0-1.0); Monocytes % (A) 4 %; Neutrophils # (A) 8.8 k/uL (1.3-7.7); Neutrophils % (A) 84 %; Platelet Count 288 k/uL (150-450); RBC 4.37 m/uL (3.80-5.40); RDW 13.3 % (11.5-15.5); WBC 10.4 k/uL (3.8-10.6)
[2022-04-03 11:42] LABS: ALT 21 U/L (4-34); AST 22 U/L (14-36); African American GFR (CKD) >90 (>60 ml/min/1.73 sqM); Albumin 4.5 g/dL (3.5-5.0); Alkaline Phosphatase 104 U/L (38-126); Amylase 69 U/L (30-110); Anion Gap 8 mmol/L; Blood Urea Nitrogen 13 mg/dL (7-17); Carbon Dioxide 24 mmol/L (22-30); Chloride 108 mmol/L (98-107); Glucose 118 mg/dL (74-99); Lipase 76 U/L (23-300); Non-African American GFR(CKD) >90 (>60 ml/min/1.73 sqM); Potassium 4.5 mmol/L (3.5-5.1); Sodium 140 mmol/L (137-145); Total Bilirubin 0.3 mg/dL (0.2-1.3); Total Protein 8.1 g/dL (6.3-8.2)
[2022-04-03] MEDS ORDERED: ACETAMINOPHEN IV (For NPO) 1,000 MG in EMPTY BAG 1 BAG IVPB STA (12:11)
[2022-04-03] MEDS ORDERED: MAG HYDROX/AL HYDROX/SIMETH 30 ML, HYOSCYAMINE ELIXIR 10 ML, LIDOCAINE VISCOUS 2% 10 ML PO STA ×3 (15:02)
[2022-04-03] MEDS ORDERED: HYDROmorphone 1 MG/ML 1 ML SYRINGE IVP STA ×2 (15:02→16:36)
[2022-04-03] MEDS ORDERED: IBUPROFEN 600 MG STARTER PACK 4 TAB BTL PO STA (17:20)
[2022-04-03] MEDS ORDERED: ACET/COD 300 MG/30 MG STARTER PACK 6 TAB BTL PO STA (17:20)
[2022-04-03] MEDS ORDERED: ONDANSETRON 4 MG ODT STARTER PACK 2 TAB BTL PO STA (17:20)
--- NOTE | 2022-04-03 17:28 | ED ---
Nausea/Vomiting/Diarrhea HPI - General Chief complaint: Nausea/Vomiting/Diarrhea Stated complaint: NVD Time Seen by Provider: 04/03/22 09:16 Source: patient, EMS, RN notes reviewed Mode of arrival: EMS - History of Present Illness Initial comments: This is a 26-year-old female who presents to the emergency department for nausea and vomiting. Patient was staying at the local [facility]. States that early this morning, she started feeling like she had the chills and then began having nausea and vomiting. Reports associated diarrhea and epigastric pain. Denies any history of similar symptoms in the past. She has no associated shortness of breath. She has no history of problems with her gallbladder or acid reflux. Denies any fevers, chills, sore throat, cough, dyspnea, chest pain, palpitations, back pain, or headaches. MD complaint: nausea, vomiting, diarrhea, abdominal pain Associated Abdominal Pain: Yes Location: RUQ, epigastric - Related Data Previous Rx's Medication Instructions Recorded Ondansetron Odt [Zofran Odt] 4 mg PO Q8HR PRN #15 tab 04/03/22 Allergies Allergy/AdvReac Type Severity Reaction Status Date / Time iodine Allergy Swelling Verified 04/03/22 11:54 Iodine and Iodide Containing Allergy Swelling Verified 04/03/22 11:54 Produc ragweed pollen Allergy Unknown Verified 04/03/22 11:54 Review of Systems ROS Statement: Those systems with pertinent positive or pertinent negative responses have been documented in the HPI. ROS Other: All systems not noted in ROS Statement are negative. Past Medical History Past Medical History: Asthma, Hypertension Additional Past Medical History / Comment(s): colitis History of Any Multi-Drug Resistant Organisms: None Reported Past Surgical History: Section Past Anesthesia/Blood Transfusion Reactions: No Reported Reaction Past Psychological History: ADD/ADHD, Anxiety, Bipolar, Depression, PTSD Smoking Status: Vaper Past Alcohol Use History: Occasional Past Drug Use History: Marijuana - Past Family History Father History Unknown: Yes Mother History Unknown: Yes Family Medical History: Diabetes Mellitus, Deep Vein Thrombosis (DVT), Myocardial Infarction ([place]), Thyroid Disorder Additional Family Medical History / Comment(s): patient adopted General Exam General appearance: alert, in distress Head exam: Present: atraumatic, normocephalic, normal inspection Respiratory exam: Present: normal lung sounds bilaterally. Absent: respiratory distress, wheezes, rales, rhonchi, stridor Cardiovascular Exam: Present: regular rate, normal rhythm, normal heart sounds. Absent: systolic murmur, diastolic murmur, rubs, gallop, clicks GI/Abdominal exam: Present: soft, tenderness (epigastric), normal bowel sounds. Absent: distended Neurological exam: Present: alert, oriented X3, CN II-XII intact Psychiatric exam: Present: normal affect, normal mood Skin exam: Present: warm, dry, intact, normal color. Absent: rash Course Vital Signs 04/03/22 04/03/22 04/03/22 09:20 10:15 18:04 Temperature 97.4 F L Pulse Rate 117 H 94 Respiratory 20 18 Rate Blood Pressure 152/133 116/71 135/82 O2 Sat by Pulse 96 99 Oximetry Medical Decision Making - Medical Decision Making This is a 26-year-old female who presents to the emergency department for abdominal pain, nausea, and vomiting. Was pt. sent in by a medical professional or institution? @ -No Did you speak to anyone other than the patient for history? @ -No Did you review nursing and triage notes? @ -Agree, accurate with regards to the patient's symptoms. Were old charts reviewed? @ -No Differential Diagnosis? @ -Differential Abdominal Pain Women: Appendicitis, Cholecystitis, diverticulosis, ischemic bowel, pancreatitis, hepatitis, UTI, gastroenteritis, AAA, incarcerated hernia, bowel obstruction, constipation, inflammatory bowel, hepatitis, peptic ulcer disease, splenic infarction, perforated viscus, vulvitis, ovarian torsion, PID, kidney stone, placenta abruption, this is not meant to be an all-inclusive list CT interpreted by me (1pt min.)? @ -My interpretation of the computed tomography scan of the abdomen and pelvis identifies no evidence of free air, bowel wall thickening, or a hiatal hernia. U/S interpreted by me (1pt. min.)? @ -Ultrasound of the gallbladder obtained revealing no evidence of cholelithiasis or gallbladder wall thickening. What testing was considered but not performed? (CT, X-rays, U/S, labs)? Why? @ -None What meds were considered but not given? Why? @ -None Did you discuss the management of the patient with other professionals? @ -No Did you reconcile home meds? @ -No Was smoking cessation discussed for >3mins.? @ -No Was critical care preformed (if so, how long)? @ -No Were there social determinants of health that impacted care today? How? (Homelessness, low income, unemployed, alcoholism, drug addiction, transportation, low edu. Level, literacy, decrease access to med. care, nursing home, rehab)? @ -No Was there de-escalation of care discussed even if they declined? (Discuss DNR or withdrawal of care, Hospice)? @ -No What co-morbidities impacted this encounter? (DM, HTN, Smoking, COPD, CAD, Cancer, CVA, Hep., AIDS, mental health diagnosis, sleep apnea, morbid obesity)? @ -Morbid obesity Was patient admitted / discharged? @ -Lab work was obtained and found to be nonactionable. She requested STD testing, however she declined the need for any prophylactic treatment. GC/chlamydia and syphillis testing ordered with results pending. Ultrasound of the gallbladder revealed no evidence of any acute abnormalities. Her nausea and vomiting were very easily controlled with Zofran, however the pain was very difficult to control despite doses of Toradol, Ofirmev, a GI cocktail, and dilauded. Because she was not having any significant relief in symptoms, I d ecided to proceed with a computed tomography scan of the abdomen and pelvis. My interpretation of the computed tomography scan is listed above. Based on her symptoms, she may be experiencing a biliary dyskinesia or a peptic ulcer. Advised she start taking osvi-crt-hezjoci omeprazole or famotidine. She is also advised follow-up with her primary care provider to discuss a HIDA scan or an EGD if symptoms persist. Drug Therapy requiring intensive monitoring for toxicity (Heparin, Nitro, Insulin, Cardizem)? @ -None Were any procedures done? @ -No Diagnosis/symptom? @ -Epigastric pain Acute, or Chronic, or Acute on Chronic? @ -Acute Uncomplicated (without systemic symptoms) or Complicated (systemic symptoms)? @ -Complicated, associated nausea and vomiting. Side effects of treatment? @ -Adverse effects to OTC Ibuprofen or Tylenol or adverse effects to a PPI or H2 kelly if she chooses to take one of them. Exacerbation, Progression, or Severe Exacerbation] @ -Not applicable Poses a threat to life or bodily function? @ -May impact function if the pain is severe enough. Diagnosis/symptom? @ -Nausea and vomiting Acute, or Chronic, or Acute on Chronic? @ -Acute Uncomplicated (without systemic symptoms) or Complicated (systemic symptoms)? @ -Complicated, associated abdominal pain and diarrhea. Side effects of treatment? @ -Adverse reaction to the zofran. Exacerbation, Progression, or Severe Exacerbation] @ -Not applicable Poses a threat to life or bodily function? @ -My impact function depending on the severity of symptoms. Return precautions reviewed in depth, the patient is instructed to return to the emergency department with any new, worsening, or concerning symptoms. Patient verbalized understanding. This case was discussed in detail with the attending ED physician. Presentation, findings, and treatment plan discussed in detail as well. - Lab Data Result diagrams: 04/03/22 11:18 04/03/22 11:18 Lab Results 04/03/22 04/03/22 04/03/22 Range/Units 10:13 10:13 11:18 WBC 10.4 (3.8-10.6) k/uL RBC 4.37 (3.80-5.40) m/uL Hgb 13.0 (11.4-16.0) gm/dL Hct 38.4 (34.0-46.0) % MCV 87.8 (80.0-100.0) fL MCH 29.7 (25.0-35.0) pg MCHC 33.8 (31.0-37.0) g/dL RDW 13.3 (11.5-15.5) % Plt Count 288 (150-450) k/uL MPV 7.4 Neutrophils % 84 % Lymphocytes % 10 % Monocytes % 4 % Eosinophils % 1 % Basophils % 0 % Neutrophils # 8.8 H (1.3-7.7) k/uL Lymphocytes # 1.0 (1.0-4.8) k/uL Monocytes # 0.4 (0-1.0) k/uL Eosinophils # 0.1 (0-0.7) k/uL Basophils # 0.0 (0-0.2) k/uL Sodium (137-145) mmol/L Potassium (3.5-5.1) mmol/L Chloride (98-107) mmol/L Carbon Dioxide (22-30) mmol/L Anion Gap mmol/L BUN (7-17) mg/dL Creatinine (0.52-1.04) mg/dL Est GFR (CKD-EPI)AfAm (>60 ml/min/1.73 sqM) Est GFR (CKD-EPI)NonAf (>60 ml/min/1.73 sqM) Glucose (74-99) mg/dL Plasma Lactic Acid Howard (0.7-2.0) mmol/L Calcium (8.4-10.2) mg/dL Total Bilirubin (0.2-1.3) mg/dL AST (14-36) U/L ALT (4-34) U/L Alkaline Phosphatase (38-126) U/L Troponin I (0.000-0.034) ng/mL Total Protein (6.3-8.2) g/dL Albumin (3.5-5.0) g/dL Amylase (30-110) U/L Lipase (23-300) U/L Urine Color Yellow Urine Appearance Turbid H (Clear) Urine pH 5.5 (5.0-8.0) Ur Specific [place] 1.032 (1.001-1.035) Urine Protein Trace H (Negative) Urine Glucose (UA) Negative (Negative) Urine Ketones Negative (Negative) Urine Blood Negative (Negative) Urine Nitrite Negative (Negative) Urine Bilirubin Negative (Negative) Urine Urobilinogen <2.0 (<2.0) mg/dL Ur Leukocyte Esterase Moderate H (Negative) Urine WBC 3 (0-5) /hpf Ur Squamous Epith Cells 9 H (0-4) /hpf Amorphous Sediment Many H (None) /hpf Urine Bacteria Rare H (None) /hpf Urine Mucus Many H (None) /hpf Urine HCG, Qual Not Detected (Not Detectd) Treponema pallidum Ab (Nonreactive) Chlamydia Source Chlamydia DNA (PCR) (Neg,Equiv) Influenza Type A (PCR) (Not Detectd) Influenza Type B (PCR) (Not Detectd) N. gonorrhoeae Source N.gonorrhoeae DNA Probe (Neg,Equiv) RSV (PCR) (Not Detectd) SARS-CoV-2 (PCR) (Not Detectd) 04/03/22 04/03/22 04/03/22 Range/Units 11:18 11:18 11:18 WBC (3.8-10.6) k/uL RBC (3.80-5.40) m/uL Hgb (11.4-16.0) gm/dL Hct (34.0-46.0) % MCV (80.0-100.0) fL MCH (25.0-35.0) pg MCHC (31.0-37.0) g/dL RDW (11.5-15.5) % Plt Count (150-450) k/uL MPV Neutrophils % % Lymphocytes % % Monocytes % % Eosinophils % % Basophils % % Neutrophils # (1.3-7.7) k/uL Lymphocytes # (1.0-4.8) k/uL Monocytes # (0-1.0) k/uL Eosinophils # (0-0.7) k/uL Basophils # (0-0.2) k/uL Sodium 140 (137-145) mmol/L Potassium 4.5 (3.5-5.1) mmol/L Chloride 108 H (98-107) mmol/L Carbon Dioxide 24 (22-30) mmol/L Anion Gap 8 mmol/L BUN 13 (7-17) mg/dL Creatinine 0.57 (0.52-1.04) mg/dL Est GFR (CKD-EPI)AfAm >90 (>60 ml/min/1.73 sqM) Est GFR (CKD-EPI)NonAf >90 (>60 ml/min/1.73 sqM) Glucose 118 H (74-99) mg/dL Plasma Lactic Acid Howard 1.5 (0.7-2.0) mmol/L Calcium 9.0 (8.4-10.2) mg/dL Total Bilirubin 0.3 (0.2-1.3) mg/dL AST 22 (14-36) U/L ALT 21 (4-34) U/L Alkaline Phosphatase 104 (38-126) U/L Troponin I <0.012 (0.000-0.034) ng/mL Total Protein 8.1 (6.3-8.2) g/dL Albumin 4.5 (3.5-5.0) g/dL Amylase 69 (30-110) U/L Lipase 76 (23-300) U/L Urine Color Urine Appearance (Clear) Urine pH (5.0-8.0) Ur Specific [place] (1.001-1.035) Urine Protein (Negative) Urine Glucose (UA) (Negative) Urine Ketones (Negative) Urine Blood (Negative) Urine Nitrite (Negative) Urine Bilirubin (Negative) Urine Urobilinogen (<2.0) mg/dL Ur Leukocyte Esterase (Negative) Urine WBC (0-5) /hpf Ur Squamous Epith Cells (0-4) /hpf Amorphous Sediment (None) /hpf Urine Bacteria (None) /hpf Urine Mucus (None) /hpf Urine HCG, Qual (Not Detectd) Treponema pallidum Ab (Nonreactive) Chlamydia Source Chlamydia DNA (PCR) (Neg,Equiv) Influenza Type A (PCR) (Not Detectd) Influenza Type B (PCR) (Not Detectd) N. gonorrhoeae Source N.gonorrhoeae DNA Probe (Neg,Equiv) RSV (PCR) (Not Detectd) SARS-CoV-2 (PCR) (Not Detectd) 04/03/22 04/03/22 04/03/22 Range/Units 11:18 11:18 11:55 WBC (3.8-10.6) k/uL RBC (3.80-5.40) m/uL Hgb (11.4-16.0) gm/dL Hct (34.0-46.0) % MCV (80.0-100.0) fL MCH (25.0-35.0) pg MCHC (31.0-37.0) g/dL RDW (11.5-15.5) % Plt Count (150-450) k/uL MPV Neutrophils % % Lymphocytes % % Monocytes % % Eosinophils % % Basophils % % Neutrophils # (1.3-7.7) k/uL Lymphocytes # (1.0-4.8) k/uL Monocytes # (0-1.0) k/uL Eosinophils # (0-0.7) k/uL Basophils # (0-0.2) k/uL Sodium (137-145) mmol/L Potassium (3.5-5.1) mmol/L Chloride (98-107) mmol/L Carbon Dioxide (22-30) mmol/L Anion Gap mmol/L BUN (7-17) mg/dL Creatinine (0.52-1.04) mg/dL Est GFR (CKD-EPI)AfAm (>60 ml/min/1.73 sqM) Est GFR (CKD-EPI)NonAf (>60 ml/min/1.73 sqM) Glucose (74-99) mg/dL Plasma Lactic Acid Howard (0.7-2.0) mmol/L Calcium (8.4-10.2) mg/dL Total Bilirubin (0.2-1.3) mg/dL AST (14-36) U/L ALT (4-34) U/L Alkaline Phosphatase (38-126) U/L Troponin I (0.000-0.034) ng/mL Total Protein (6.3-8.2) g/dL Albumin (3.5-5.0) g/dL Amylase (30-110) U/L Lipase (23-300) U/L Urine Color Urine Appearance (Clear) Urine pH (5.0-8.0) Ur Specific [place] (1.001-1.035) Urine Protein (Negative) Urine Glucose (UA) (Negative) Urine Ketones (Negative) Urine Blood (Negative) Urine Nitrite (Negative) Urine Bilirubin (Negative) Urine Urobilinogen (<2.0) mg/dL Ur Leukocyte Esterase (Negative) Urine WBC (0-5) /hpf Ur Squamous Epith Cells (0-4) /hpf Amorphous Sediment (None) /hpf Urine Bacteria (None) /hpf Urine Mucus (None) /hpf Urine HCG, Qual (Not Detectd) Treponema pallidum Ab Nonreactive (Nonreactive) Chlamydia Source Urine Chlamydia DNA (PCR) Negative (Neg,Equiv) Influenza Type A (PCR) Not Detected (Not Detectd) Influenza Type B (PCR) Not Detected (Not Detectd) N. gonorrhoeae Source Urine N.gonorrhoeae DNA Probe Negative (Neg,Equiv) RSV (PCR) Not Detected (Not Detectd) SARS-CoV-2 (PCR) Not Detected (Not Detectd) - Radiology Data Radiology results: report reviewed, image reviewed Disposition Clinical Impression: Epigastric pain, Nausea and vomiting Disposition: HOME SELF-CARE Instructions (If sedation given, give patient instructions): Acute Nausea and Vomiting (ED), Epigastric Pain (ED), Biliary Dyskinesia (DC) Additional Instructions: Return to the emergency department with any new, worsening, or concerning symptoms. The Zofran can be taken up to every 8 hours as needed for nausea and vomiting. Alternate with ibuprofen and Tylenol as needed for pain relief. Make sure that you remain well-hydrated and slowly advance your diet as tolerated. Continue starting [id number] Pepcid or omeprazole. Follow-up with your primary care provider and discuss a HIDA scan to evaluate for signs of gallbladder dysfunction. You should also discuss an EGD for direct evaluation of the upper GI tract. Follow up with your primary care provider in 1-2 days. Prescriptions: Ondansetron Odt [Zofran Odt] 4 mg PO Q8HR PRN #15 tab PRN Reason: Nausea And Vomiting Is patient prescribed a controlled substance at d/c from ED?: No Referrals: Kerri Corcoran MD [Primary Care Provider] - 1-2 days
--- NOTE | 2022-04-03 17:46 | CT ---
EXAMINATION TYPE: CT abdomen pelvis wo con DATE OF EXAM: 04/03/2022 COMPARISON: None HISTORY: epigastric pain CT DLP: mGycm Automated exposure control for dose reduction was used. Images obtained from the diaphragm to the floor of the pelvis with no contrast. The lung bases are clear. No pleural effusion. Heart size is normal. No pericardial effusion. Liver spleen and stomach pancreas gallbladder appear intact. The bile duct are not dilated. There is no adrenal mass. Kidneys have normal size. No hydronephrosis. Ureters are not dilated. The b ladder distends smoothly. No inguinal hernia. No free fluid in the pelvis. The uterus is anteverted. There is IUD in the uterine fundus. The lumbar vertebra. Intact. Bony pelvis is intact. The hip joints are intact. There is no mesenteric edema. No ascites or free air. No sign of a bowel obstruction. Appendix is med ial and appears normal. IMPRESSION: Negative CT scan abdomen and pelvis.
[2022-04-03 18:05] VITALS: BP 135/82; PULSE 94; RESP 18
[2022-04-05 12:49] LABS: C. trachomatis,PCR Negative (Neg,Equiv); Chlamydia trachomatis Source Urine; N. gonorrhoeae,PCR Negative (Neg,Equiv); Neisseria Source Urine
== END 2022-04-03 18:11 | disposition home or self-care (01) ==
LOC: EC 09:15
DX: R10.13 Epigastric pain (principal); R11.2 Nausea with vomiting, unspecified; J45.909 Unspecified asthma, uncomplicated; I10 Essential (primary) hypertension; F90.9 Attention-deficit hyperactivity disorder, unspecified type; F41.9 Anxiety disorder, unspecified; F31.9 Bipolar disorder, unspecified; F17.290 Nicotine dependence, other tobacco product, uncomplicated; F12.90 Cannabis use, unspecified, uncomplicated; Z20.822 Contact with and (suspected) exposure to COVID-19; Z91.041 Radiographic dye allergy status; Z88.8 Allergy status to other drugs, medicaments and biological substances
CPT/HCPCS: 36415; 80053; 82150; 83605; 83690; 84484; 85025; 81001; 81025; 87491; 87591; 86780; 87636; 76705; 74176; 99285; 96365; 96375 ×4; 96376; 96361; J2405; J1170; J0131; J1885; S0119; C9113

== ENCOUNTER 2022-06-25 17:15 | Emergency (ER) | payer OTHER ==
[2022-06-25 17:33] VITALS: PULSE 70
[2022-06-25] MEDS ORDERED: MORPHINE SULFATE 4 MG/ML SYRINGE IM STA (17:59)
[2022-06-25] MEDS ORDERED: AMOXIC-POT CLAV 875-125MG 1 EACH TAB PO STA (18:00)
[2022-06-25] MEDS ORDERED: BENZOCAINE 20 % GEL 11.9 GM TUBE MM STA (18:37)
[2022-06-25] MEDS ORDERED: ACET/COD 300 MG/30 MG STARTER PACK 6 TAB BTL PO STA (18:38)
--- NOTE | 2022-06-25 18:41 | ED ---
ENT HPI - General Chief complaint: Dental/Oral Stated complaint: dental abscess Time Seen by Provider: 06/25/22 17:34 Source: patient Mode of arrival: ambulatory Limitations: no limitations - History of Present Illness Initial comments: Patient is a 26 year old female who presents to the ED for dental pain. It started 2 days ago refractory to OTC meds. Patient denies any airway involvement, fever, chills, nausea, vomiting. Patient does not have a dentist - Related Data Previous Rx's Medication Instructions Recorded Amoxic-Pot Clav 875-125Mg 1 tab PO BID 10 Days #20 tab 06/25/22 [Augmentin 875-125] Ibuprofen [Motrin] 800 mg PO Q8H PRN #30 tab 06/25/22 Allergies Allergy/AdvReac Type Severity Reaction Status Date / Time iodine Allergy Swelling Verified 06/25/22 17:43 Iodine and Iodide Containing Allergy Swelling Verified 06/25/22 17:43 Produc ragweed pollen Allergy Unknown Verified 06/25/22 17:43 Review of Systems ROS Statement: Those systems with pertinent positive or pertinent negative responses have been documented in the HPI. ROS Other: All systems not noted in ROS Statement are negative. Past Medical History Past Medical History: Asthma, Hypertension Additional Past Medical History / Comment(s): colitis History of Any Multi-Drug Resistant Organisms: None Reported Past Surgical History: Section Past Anesthesia/Blood Transfusion Reactions: No Reported Reaction Past Psychological History: ADD/ADHD, Anxiety, Bipolar, Depression, PTSD Smoking Status: Current every day smoker, Vaper Past Alcohol Use History: Occasional Past Drug Use History: Marijuana - Past Family History Father History Unknown: Yes Mother History Unknown: Yes Family Medical History: Diabetes Mellitus, Deep Vein Thrombosis (DVT), Myocardial Infarction ([place]), Thyroid Disorder Additional Family Medical History / Comment(s): patient adopted General Exam Limitations: no limitations General appearance: alert ENT exam: Absent: normal oropharynx (Overall poor dentition. Decayed upper left canine with 1 cm gingival abscess above) Neurological exam: Present: alert, oriented X3, CN II-XII intact Psychiatric exam: Present: normal affect, normal mood Skin exam: Present: warm, dry, intact, normal color. Absent: rash Course Vital Signs 06/25/22 17:31 Temperature 97.7 F Pulse Rate 70 Respiratory 20 Rate Blood Pressure 127/85 O2 Sat by Pulse 99 Oximetry Procedures - Incision & Drainage Site: other (mout) Sterile Field Used?: Yes I&D Drainage Obtained: Pus Patient Tolerated Procedure: well, no complications Medical Decision Making - Medical Decision Making Was pt. sent in by a medical professional or institution ([facility] Arroy[facility], AD SETTER, urgent care, hospital, or fci...) When possible be specific @ -No Did you speak to anyone other than the patient for history (EMS, parent, family, police, friend...)? What history was obtained from this source @ -No Did you review nursing and triage notes (agree or disagree)? Why? @ -I reviewed and agree with nursing and triage notes Were old charts reviewed (outside hosp., previous admission, EMS record, old EKG, old radiological studies, urgent care reports/EKG's, fci records)? Report findings @ -No old charts were reviewed Differential Diagnosis (chest pain, altered mental status, abdominal pain women, abdominal pain men, vaginal bleeding, weakness, fever, dyspnea, syncope, headache, dizziness, GI bleed, back pain, seizure, CVA, palpatations, mental health)? @ Dental infection, dental fracture, dental abscess EKG interpreted by me (3pts min.). @ -As above X-rays interpreted by me (1pt min.). @ -None done CT interpreted by me (1pt min.). @ -None done U/S interpreted by me (1pt. min.). @ -None done What testing was considered but not performed or refused? (CT, X-rays, U/S, labs)? Why? @ -None What meds were considered but not given or refused? Why? @ -None Did you discuss the management of the patient with other professionals (professionals i.e. [facility] Arroyo, AD SETTER, lab, RT, psych nurse, social service manager, white washer piler, teacher, appeals officer, medical case worker)? Give summary @ -No Was smoking cessation discussed for >3mins.? @ -No Was critical care preformed (if so, how long)? @ -No Were there social determinants of health that impacted care today? How? (Homelessness, low income, unemployed, alcoholism, drug addiction, transportation, low edu. Level, literacy, decrease access to med. care, skilled nursing, rehab)? @ -No Was there de-escalation of care discussed even if they declined (Discuss DNR or withdrawal of care, Hospice)? DNR status @ -No What co-morbidities impacted this encounter? (DM, HTN, Smoking, COPD, CAD, Cancer, CVA, ARF, Chemo, Hep., AIDS, mental health diagnosis, sleep apnea, morbid obesity)? @ -None Was patient admitted / discharged? Hospital course, mention meds given and route, prescriptions, significant lab abnormalities, going to OR and other pertinent info. @ -Patient presenting with small dental abscess above left upper canine. No systemic symptoms or signs. Dental abscess was drained. Patient was placed on Augmentin with strict return parameters. She is encouraged to establish care with a dentist. New problem with uncertain prognosis? @ -[No] Drug Therapy eqiring intensive monitoring for toxicity (Heparin, Nitro, Insulin, Cardizem)? @ -[No] Were any procedures done? @ -yes, incision and drainage Diagnosis/symto? @ -dental abscess Acute, or Chronic, or Acute on Chronic? @ -acute Uncomplicated (without systemic symptoms) or Complicated (systemic symptoms)? @ -uncomplicated Side effects of treatment? @ -No Exacerbation, Progression, or Severe Exacerbation? @ -No Poses a threat to life or bodily function? How? (Chest pain, [place], [place], pneumonia, PE, COPD, DKA, ARF, appy, cholecystitis, CVA, Diverticulitis, Homicidal, Suicidal, threat to staff... and all critical care pts) @ -No Dr. Christian is my attending Disposition Clinical Impression: Dental abscess Disposition: HOME SELF-CARE Condition: Good Instructions (If sedation given, give patient instructions): Dental Abscess (ED) Additional Instructions: Take medication as directed. It is important to follow up with a dentist. Return to the ED if you experience new, concerning, or worsening symptoms Prescriptions: Amoxic-Pot Clav 875-125Mg [Augmentin 875-125] 1 tab PO BID 10 Days #20 tab Ibuprofen [Motrin] 800 mg PO Q8H PRN #30 tab PRN Reason: Pain Is patient prescribed a controlled substance at d/c from ED?: No Referrals: Kerri Corcoran MD [Primary Care Provider] - 1-2 days
[2022-06-25 19:04] VITALS: BP 129/86; RESP 16; TEMP 98
== END 2022-06-25 19:09 | disposition home or self-care (01) ==
LOC: EC 17:15
DX: K04.7 Periapical abscess without sinus (principal); J45.909 Unspecified asthma, uncomplicated; I10 Essential (primary) hypertension; F17.290 Nicotine dependence, other tobacco product, uncomplicated; F12.90 Cannabis use, unspecified, uncomplicated; Z91.048 Other nonmedicinal substance allergy status; Z88.8 Allergy status to other drugs, medicaments and biological substances
CPT/HCPCS: 99282; 96372; 41800; J2270

== ENCOUNTER 2022-12-08 06:51 | Emergency (ER) | payer OTHER ==
[2022-12-08] MEDS ORDERED: ACETAMINOPHEN TAB 500 MG TAB PO STA (07:15)
--- NOTE | 2022-12-08 07:18 | ED ---
General Adult HPI - General Chief complaint: Upper Respiratory Infection Stated complaint: ABD PAIN Time Seen by Provider: 12/08/22 07:08 Source: patient, RN notes reviewed, old records reviewed Mode of arrival: ambulatory Limitations: no limitations - History of Present Illness Initial comments: 27-year-old female presents for evaluation of nasal congestion, myalgia. Patient states her symptoms began yesterday. Patient denies chest pain or difficulty breathing. Denies cough. She states she has some lower abdominal pain and a mild headache. She states her body aches are diffuse. No measured fever. No vomiting or diarrhea. - Related Data Previous Rx's Medication Instructions Recorded Amoxic-Pot Clav 875-125Mg 1 tab PO BID 10 Days #20 tab 06/25/22 [Augmentin 875-125] Ibuprofen [Motrin] 800 mg PO Q8H PRN #30 tab 06/25/22 Allergies Allergy/AdvReac Type Severity Reaction Status Date / Time iodine Allergy Swelling Verified 12/08/22 07:05 Iodine and Iodide Containing Allergy Swelling Verified 12/08/22 07:05 Produc ragweed pollen Allergy Unknown Verified 12/08/22 07:05 Review of Systems ROS Statement: Those systems with pertinent positive or pertinent negative responses have been documented in the HPI. ROS Other: All systems not noted in ROS Statement are negative. Past Medical History Past Medical History: Asthma, Hypertension Additional Past Medical History / Comment(s): colitis History of Any Multi-Drug Resistant Organisms: None Reported Past Surgical History: Section Past Anesthesia/Blood Transfusion Reactions: No Reported Reaction Past Psychological History: ADD/ADHD, Anxiety, Bipolar, Depression, PTSD Smoking Status: Current every day smoker, Vaper Past Alcohol Use History: Occasional Past Drug Use History: Marijuana - Past Family History Father History Unknown: Yes Mother History Unknown: Yes Family Medical History: Diabetes Mellitus, Deep Vein Thrombosis (DVT), Myocardial Infarction ([place]), Thyroid Disorder Additional Family Medical History / Comment(s): patient adopted General Exam Limitations: no limitations General appearance: alert, anxious Head exam: Present: atraumatic, normocephalic Eye exam: Present: normal appearance, PERRL ENT exam: Present: mucous membranes moist, other (Nasal congestion) Respiratory exam: Present: normal lung sounds bilaterally. Absent: respiratory distress, wheezes Cardiovascular Exam: Present: regular rate, normal rhythm GI/Abdominal exam: Present: soft. Absent: distended, tenderness, guarding, rebound Extremities exam: Present: normal inspection, normal capillary refill Neurological exam: Present: alert, oriented X3, CN II-XII intact. Absent: motor sensory deficit Psychiatric exam: Present: normal affect, normal mood Skin exam: Present: warm, dry, intact. Absent: cyanosis, diaphoretic Course Vital Signs 12/08/22 12/08/22 12/08/22 07:01 08:29 08:30 Temperature 99.4 F 98.8 F Pulse Rate 98 95 Respiratory 24 18 19 Rate Blood Pressure 125/61 135/84 O2 Sat by Pulse 99 97 Oximetry 12/08/22 09:03 Temperature Pulse Rate 80 Respiratory 18 Rate Blood Pressure 139/89 O2 Sat by Pulse 96 Oximetry Medical Decision Making - Medical Decision Making Was pt. sent in by a medical professional or institution ([facility], CELL OPERATOR, urgent care, hospital, or shelter...) When possible be specific @ -No Did you speak to anyone other than the patient for history (EMS, parent, family, police, friend...)? What history was obtained from this source @ -No Did you review nursing and triage notes (agree or disagree)? Why? @ -I reviewed and agree with nursing and triage notes Were old charts reviewed (outside hosp., previous admission, EMS record, old EKG, old radiological studies, urgent care reports/EKG's, shelter records)? Report findings @ -No old charts were reviewed Differential Diagnosis (chest pain, altered mental status, abdominal pain women, abdominal pain men, vaginal bleeding, weakness, fever, dyspnea, syncope, headache, dizziness, GI bleed, back pain, seizure, CVA, palpatations, mental health, musculoskeletal)? @ -Coronavirus, influenza, viral syndrome, UTI EKG interpreted by me (3pts min.). @ -As above X-rays interpreted by me (1pt min.). @ -None done CT interpreted by me (1pt min.). @ -None done U/S interpreted by me (1pt. min.). @ -None done What testing was considered but not performed or refused? (CT, X-rays, U/S, labs)? Why? @ -None What meds were considered but not given or refused? Why? @ -None Did you discuss the management of the patient with other professionals (professionals i.e. , PA, CELL OPERATOR, lab, RT, psych nurse, social security assessor, custom stock maker, teacher, chief wellness officer, manager of case)? Give summary @ -No Was smoking cessation discussed for >3mins.? @ -No Was critical care preformed (if so, how long)? @ -No Were there social determinants of health that impacted care today? How? (Homelessness, low income, unemployed, alcoholism, drug addiction, transportation, low edu. Level, literacy, decrease access to med. care, [facility], rehab)? @ -No Was there de-escalation of care discussed even if they declined (Discuss DNR or withdrawal of care, Hospice)? DNR status @ -No What co-morbidities impacted this encounter? (DM, HTN, Smoking, COPD, CAD, Cancer, CVA, ARF, Chemo, Hep., AIDS, mental health diagnosis, sleep apnea, morbid obesity)? @Asthma Was patient admitted / discharged? Hospital course, mention meds given and route, prescriptions, significant lab abnormalities, going to OR and other pertinent info. @27-year-old female with mild headache, mild abdominal pain, diffuse myalgia, concerning for viral illness, patient does test positive for coronavirus in the emergency department. Given IV fluids, Tylenol and Toradol for symptom management. She should quarantine, stay hydrated, take Tylenol Motrin for symptoms Undiagnosed new problem with uncertain prognosis? @ -No Drug Therapy requiring intensive monitoring for toxicity (Heparin, Nitro, Insulin, Cardizem)? @ -No Were any procedures done? @ -No Diagnosis/symptom? @ -Coronavirus Acute, or Chronic, or Acute on Chronic? @Acute Uncomplicated (without systemic symptoms) or Complicated (systemic symptoms)? @ -[Uncomplicated Side effects of treatment? @ -No Exacerbation, Progression, or Severe Exacerbation? @ -No Poses a threat to life or bodily function? How? (Chest pain, [place], [place], pneumonia, PE, COPD, DKA, ARF, appy, cholecystitis, CVA, Diverticulitis, Homicidal, Suicidal, threat to staff... and all critical care pts) @ -[Low risk at this time - Lab Data Result diagrams: 12/08/22 08:17 12/08/22 08:17 Lab Results 12/08/22 12/08/22 12/08/22 Range/Units 07:38 08:17 08:17 WBC (3.8-10.6) k/uL RBC (3.80-5.40) m/uL Hgb (11.4-16.0) gm/dL Hct (34.0-46.0) % MCV (80.0-100.0) fL MCH (25.0-35.0) pg MCHC (31.0-37.0) g/dL RDW (11.5-15.5) % Plt Count (150-450) k/uL MPV Neutrophils % % Lymphocytes % % Monocytes % % Eosinophils % % Basophils % % Neutrophils # (1.3-7.7) k/uL Lymphocytes # (1.0-4.8) k/uL Monocytes # (0-1.0) k/uL Eosinophils # (0-0.7) k/uL Basophils # (0-0.2) k/uL Sodium (137-145) mmol/L Potassium (3.5-5.1) mmol/L Chloride (98-107) mmol/L Carbon Dioxide (22-30) mmol/L Anion Gap mmol/L BUN (7-17) mg/dL Creatinine (0.52-1.04) mg/dL Est GFR (CKD-EPI)AfAm (>60 ml/min/1.73 sqM) Est GFR (CKD-EPI)NonAf (>60 ml/min/1.73 sqM) Glucose (74-99) mg/dL Calcium (8.4-10.2) mg/dL Total Bilirubin (0.2-1.3) mg/dL AST (14-36) U/L ALT (4-34) U/L Alkaline Phosphatase (38-126) U/L Total Protein (6.3-8.2) g/dL Albumin (3.5-5.0) g/dL Urine Color Light Yellow Urine Appearance Clear (Clear) Urine pH 7.5 (5.0-8.0) Ur Specific [place] 1.025 (1.001-1.035) Urine Protein Trace H (Negative) Urine Glucose (UA) Negative (Negative) Urine Ketones 1+ H (Negative) Urine Blood Negative (Negative) Urine Nitrite Negative (Negative) Urine Bilirubin Negative (Negative) Urine Urobilinogen <2.0 (<2.0) mg/dL Ur Leukocyte Esterase Small H (Negative) Urine RBC 2 (0-5) /hpf Urine WBC 8 H (0-5) /hpf Urine WBC Clumps Rare H (None) /hpf Ur Squamous Epith Cells 14 H (0-4) /hpf Urine Bacteria Moderate H (None) /hpf Urine Mucus Occasional H (None) /hpf Urine HCG, Qual Not Detected (Not Detectd) Influenza Type A (PCR) Not Detected (Not Detectd) Influenza Type B (PCR) Not Detected (Not Detectd) RSV (PCR) Not Detected (Not Detectd) SARS-CoV-2 (PCR) Detected A (Not Detectd) 12/08/22 12/08/22 Range/Units 08:17 08:17 WBC 7.7 (3.8-10.6) k/uL RBC 4.30 (3.80-5.40) m/uL Hgb 12.7 (11.4-16.0) gm/dL Hct 37.7 (34.0-46.0) % MCV 87.6 (80.0-100.0) fL MCH 29.5 (25.0-35.0) pg MCHC 33.7 (31.0-37.0) g/dL RDW 13.2 (11.5-15.5) % Plt Count 296 (150-450) k/uL MPV 7.1 Neutrophils % 82 % Lymphocytes % 7 % Monocytes % 7 % Eosinophils % 3 % Basophils % 0 % Neutrophils # 6.3 (1.3-7.7) k/uL Lymphocytes # 0.5 L (1.0-4.8) k/uL Monocytes # 0.5 (0-1.0) k/uL Eosinophils # 0.3 (0-0.7) k/uL Basophils # 0.0 (0-0.2) k/uL Sodium 136 L (137-145) mmol/L Potassium 4.3 (3.5-5.1) mmol/L Chloride 105 (98-107) mmol/L Carbon Dioxide 24 (22-30) mmol/L Anion Gap 7 mmol/L BUN 12 (7-17) mg/dL Creatinine 0.59 (0.52-1.04) mg/dL Est GFR (CKD-EPI)AfAm >90 (>60 ml/min/1.73 sqM) Est GFR (CKD-EPI)NonAf >90 (>60 ml/min/1.73 sqM) Glucose 125 H (74-99) mg/dL Calcium 9.8 (8.4-10.2) mg/dL Total Bilirubin 0.6 (0.2-1.3) mg/dL AST 25 (14-36) U/L ALT 20 (4-34) U/L Alkaline Phosphatase 74 (38-126) U/L Total Protein 8.1 (6.3-8.2) g/dL Albumin 4.4 (3.5-5.0) g/dL Urine Color Urine Appearance (Clear) Urine pH (5.0-8.0) Ur Specific [place] (1.001-1.035) Urine Protein (Negative) Urine Glucose (UA) (Negative) Urine Ketones (Negative) Urine Blood (Negative) Urine Nitrite (Negative) Urine Bilirubin (Negative) Urine Urobilinogen (<2.0) mg/dL Ur Leukocyte Esterase (Negative) Urine RBC (0-5) /hpf Urine WBC (0-5) /hpf Urine WBC Clumps (None) /hpf Ur Squamous Epith Cells (0-4) /hpf Urine Bacteria (None) /hpf Urine Mucus (None) /hpf Urine HCG, Qual (Not Detectd) Influenza Type A (PCR) (Not Detectd) Influenza Type B (PCR) (Not Detectd) RSV (PCR) (Not Detectd) SARS-CoV-2 (PCR) (Not Detectd) Disposition Clinical Impression: COVID-19 Disposition: HOME SELF-CARE Condition: Fair Instructions (If sedation given, give patient instructions): COVID-19 (Coronavirus Disease 2019) (ED) Is patient prescribed a controlled substance at d/c from ED?: No Referrals: Kerri Corcoran MD [Primary Care Provider] - 1-2 days Time of Disposition: 09:08
[2022-12-08] MEDS ORDERED: ONDANSETRON 4 MG/2 ML VIAL IVP STA (07:53)
[2022-12-08] MEDS ORDERED: SODIUM CHLORIDE 0.9% 1,000 ML IV ONE (07:53)
[2022-12-08 08:32] VITALS: RESP 18
[2022-12-08 08:40] LABS: Appearance,Urine Clear (Clear); Bacteria,Urine Moderate /hpf; Bilirubin,Urine Negative (Negative); Blood,Urine Negative (Negative); Color,Urine Light Yellow; Glucose,Urine (UA) Negative (Negative); Ketones,Urine 1+ (Negative); Leukocyte Esterase,Urine Small (Negative); Mucus,Urine Occasional /hpf; Nitrite,Urine Negative (Negative); PH, Urine 7.5 (5.0-8.0); Protein,Urine Trace (Negative); RBC,Urine 2 /hpf (0-5); Specific Gravity,Urine 1.025 (1.001-1.035); Squamous Epithelial Cell,Urine 14 /hpf (0-4); Urobilinogen,Urine <2.0 mg/dL (<2.0); WBC,Urine 8 /hpf (0-5)
[2022-12-08 08:45] LABS: Basophils % (A) 0 %; Eosinophils # (A) 0.3 k/uL (0-0.7); Eosinophils % (A) 3 %; HCT 37.7 % (34.0-46.0); HGB 12.7 gm/dL (11.4-16.0); Lymphocytes # (A) 0.5 k/uL (1.0-4.8); Lymphocytes % (A) 7 %; MCH 29.5 pg (25.0-35.0); MCHC 33.7 g/dL (31.0-37.0); MCV 87.6 fL (80.0-100.0); Mean Platelet Volume 7.1; Monocytes # (A) 0.5 k/uL (0-1.0); Monocytes % (A) 7 %; Neutrophils # (A) 6.3 k/uL (1.3-7.7); Neutrophils % (A) 82 %; Platelet Count 296 k/uL (150-450); RDW 13.2 % (11.5-15.5); WBC 7.7 k/uL (3.8-10.6)
[2022-12-08 09:03] VITALS: BP 139/89; PULSE 80
[2022-12-08] MEDS ORDERED: KETOROLAC 15 MG/ML 1 ML VIAL IVP STA (09:05)
[2022-12-08 09:16] LABS: ALT 20 U/L (4-34); AST 25 U/L (14-36); African American GFR (CKD) >90 (>60 ml/min/1.73 sqM); Albumin 4.4 g/dL (3.5-5.0); Alkaline Phosphatase 74 U/L (38-126); Anion Gap 7 mmol/L; Blood Urea Nitrogen 12 mg/dL (7-17); Calcium 9.8 mg/dL (8.4-10.2); Carbon Dioxide 24 mmol/L (22-30); Chloride 105 mmol/L (98-107); Glucose 125 mg/dL (74-99); Non-African American GFR(CKD) >90 (>60 ml/min/1.73 sqM); Potassium 4.3 mmol/L (3.5-5.1); Sodium 136 mmol/L (137-145); Total Bilirubin 0.6 mg/dL (0.2-1.3); Total Protein 8.1 g/dL (6.3-8.2)
[2022-12-08 09:27] VITALS: TEMP 98.6
== END 2022-12-08 09:27 | disposition home or self-care (01) ==
LOC: EC 06:51
DX: U07.1 COVID-19 (principal); I10 Essential (primary) hypertension; J45.909 Unspecified asthma, uncomplicated; F17.290 Nicotine dependence, other tobacco product, uncomplicated; F12.90 Cannabis use, unspecified, uncomplicated; Z91.09 Other allergy status, other than to drugs and biological substances
CPT/HCPCS: 36415; 80053; 85025; 81001; 81025; 87636; 99284; 96374; 96375; 96361; J2405; J1885

== ENCOUNTER 2024-04-28 18:13 | Emergency (ER) | payer OTHER ==
[2024-04-28 18:51] VITALS: TEMP 100.8
--- NOTE | 2024-04-28 19:17 | ED ---
General Adult HPI - General Chief complaint: Nausea/Vomiting/Diarrhea Stated complaint: nvd fever Time Seen by Provider: 04/28/24 18:51 Source: patient, RN notes reviewed Mode of arrival: ambulatory Limitations: no limitations - History of Present Illness Initial comments: 28-year-old female presents to the emergency department for evaluation of nausea and vomiting. Patient reports that this been going on for the past 2 days but has been worse today. She reports body aches, headache. She admits to chills. She did not take her temperature at home. - Related Data Previous Rx's Medication Instructions Recorded Amoxic-Pot Clav 875-125Mg 1 tab PO BID 10 Days #20 tab 06/25/22 [Augmentin 875-125] Ibuprofen [Motrin] 800 mg PO Q8H PRN #30 tab 06/25/22 Allergies Allergy/AdvReac Type Severity Reaction Status Date / Time iodine Allergy Swelling Verified 04/28/24 18:47 Iodine and Iodide Containing Allergy Swelling Verified 04/28/24 18:47 Produc ragweed pollen Allergy Unknown Verified 04/28/24 18:47 Review of Systems ROS Statement: Those systems with pertinent positive or pertinent negative responses have been documented in the HPI. ROS Other: All systems not noted in ROS Statement are negative. Past Medical History Past Medical History: Asthma, Hypertension Additional Past Medical History / Comment(s): colitis History of Any Multi-Drug Resistant Organisms: None Reported Past Surgical History: Section Past Anesthesia/Blood Transfusion Reactions: No Reported Reaction Past Psychological History: ADD/ADHD, Anxiety, Bipolar, Depression, PTSD Smoking Status: Current every day smoker, Vaper Past Alcohol Use History: Occasional Past Drug Use History: Marijuana - Past Family History Father History Unknown: Yes Mother History Unknown: Yes Family Medical History: Diabetes Mellitus, Deep Vein Thrombosis (DVT), Josh cardial Infarction ([place]), Thyroid Disorder Additional Family Medical History / Comment(s): patient adopted General Exam Limitations: no limitations General appearance: alert, in no apparent distress Head exam: Present: atraumatic, normocephalic, normal inspection Course Vital Signs 04/28/24 18:47 Temperature 100.8 F H Pulse Rate 102 H Respiratory 20 Rate Blood Pressure 164/96 O2 Sat by Pulse 97 Oximetry Medical Decision Making - Medical Decision Making Was pt. sent in by a medical professional or institution (, PA, REAL ESTATE TRANSACTION COORDINATOR, urgent care, hospital, or long term...) When possible be specific @ -[No] Did you speak to anyone other than the patient for history (EMS, parent, family, police, friend...)? What history was obtained from this source @ -[No] Did you review nursing and triage notes (agree or disagree)? Why? @ -[I reviewed and agree with nursing and triage notes] Were old charts reviewed (outside hosp., previous admission, EMS record, old EKG, old radiological studies, urgent care reports/EKG's, long term records)? Report findings @ -[No old charts were reviewed] Differential Diagnosis (chest pain, altered mental status, abdominal pain women, abdominal pain men, vaginal bleeding, weakness, fever, dyspnea, syncope, headache, dizziness, GI bleed, back pain, seizure, CVA, palpatations, mental health, musculoskeletal)? @ -[Differential Fever: Pneumonia, viral URI, endocarditis, myocarditis, pericarditis, otitis, sinusitis, peritonsillar Abscess, retropharyngeal Abscess, epiglottitis, peritonitis, appendicitis, Sabrina cystitis, diverticulitis, hepatitis, colitis, UTI, PID, TOA, pyelonephritis, prostatitis, epididymitis, meningitis, encephalitis, pulmonary embolism, CVA, thyroid storm, pancreatitis, adrenal crisis, cavernous sinus thrombosis, this is not meant to be an all-inclusive list. ] EKG interpreted by me (3pts min.). @ -[None] X-rays interpreted by me (1pt min.). @ -[None done] CT interpreted by me (1pt min.). @ -[None done] U/S interpreted by me (1pt. min.). @ -[None done] What testing was considered but not performed or refused? (CT, X-rays, U/S, labs)? Why? @ -[None] What meds were considered but not given or refused? Why? @ -[None] Did you discuss the management of the patient with other professionals (professionals i.e. , PA, REAL ESTATE TRANSACTION COORDINATOR, lab, RT, psych nurse, high school social studies teacher, bead picker, teacher, credit products officer, casey saw operator)? Give summary @ -[No] Was smoking cessation discussed for >3mins.? @ -[No] Was critical care preformed (if so, how long)? @ -[No] Were there social determinants of health that impacted care today? How? (Homelessness, low income, unemployed, alcoholism, drug addiction, transpor tation, low edu. Level, literacy, decrease access to med. care, assisted, rehab)? @ -[No] Was there de-escalation of care discussed even if they declined (Discuss DNR or withdrawal of care, Hospice)? DNR status @ -[No] What co-morbidities impacted this encounter? (DM, HTN, Smoking, COPD, CAD, Cancer, CVA, ARF, Chemo, Hep., AIDS, mental health diagnosis, sleep apnea, morbid obesity)? @ -[None] Was patient admitted / discharged? Hospital course, mention meds given and route, prescriptions, significant lab abnormalities, going to OR and other pertinent info. @ -[hospital course] Undiagnosed new problem with uncertain prognosis? @ -[No] Drug Therapy requiring intensive monitoring for toxicity (Heparin, Nitro, Insulin, Cardizem)? @ -[No] Were any procedures done? @ -[No] Diagnosis/symptom? @ -[default] Acute, or Chronic, or Acute on Chronic? @ -[default] Uncomplicated (without systemic symptoms) or Complicated (systemic symptoms)? @ -[default] Side effects of treatment? @ -[No] Exacerbation, Progression, or Severe Exacerbation? @ -[No] Poses a threat to life or bodily function? How? (Chest pain, [place], [place], pneumonia, PE, COPD, DKA, ARF, appy, cholecystitis, CVA, Diverticulitis, Homicidal, Suicidal, threat to staff... and all critical care pts) @ -[No] - Lab Data Result diagrams: 04/28/24 19:12 04/28/24 19:12 Lab Results 04/28/24 04/28/24 04/28/24 Range/Units 19:12 19:12 19:16 WBC 8.7 (3.8-10.6) k/uL RBC 4.72 (3.80-5.40) m/uL Hgb 14.0 (11.4-16.0) gm/dL Hct 42.2 (34.0-46.0) % MCV 89.4 (80.0-100.0) fL MCH 29.8 (25.0-35.0) pg MCHC 33.3 (31.0-37.0) g/dL RDW 13.6 (11.5-15.5) % Plt Count 323 (150-450) k/uL MPV 6.6 Neutrophils % 75 % Lymphocytes % 17 % Monocytes % 5 % Eosinophils % 2 % Basophils % 0 % Neutrophils # 6.5 (1.3-7.7) k/uL Lymphocytes # 1.5 (1.0-4.8) k/uL Monocytes # 0.4 (0-1.0) k/uL Eosinophils # 0.2 (0-0.7) k/uL Basophils # 0.0 (0-0.2) k/uL Sodium 136 L (137-145) mmol/L Potassium 4.1 (3.5-5.1) mmol/L Chloride 103 (98-107) mmol/L Carbon Dioxide 21 L (22-30) mmol/L Anion Gap 12 mmol/L BUN 12 (7-17) mg/dL Creatinine 0.65 (0.52-1.04) mg/dL Est GFR (CKD-EPI)AfAm >90 (>60 ml/min/1.73 sqM) Est GFR (CKD-EPI)NonAf >90 (>60 ml/min/1.73 sqM) Glucose 98 (74-99) mg/dL Calcium 10.0 (8.4-10.2) mg/dL Total Bilirubin 0.7 (0.2-1.3) mg/dL AST 21 (14-36) U/L ALT 16 (4-34) U/L Alkaline Phosphatase 90 (38-126) U/L Total Protein 8.7 H (6.3-8.2) g/dL Albumin 5.1 H (3.5-5.0) g/dL Lipase 35 (23-300) U/L Urine Color Yellow Urine Appearance Clear (Clear) Urine pH 5.5 (5.0-8.0) Ur Specific [place] 1.026 (1.001-1.035) Urine Protein Negative (Negative) Urine Glucose (UA) Negative (Negative) Urine Ketones Trace H (Negative) Urine Blood Large H (Negative) Urine Nitrite Negative (Negative) Urine Bilirubin Negative (Negative) Urine Urobilinogen <2.0 (<2.0) mg/dL Ur Leukocyte Esterase Trace H (Negative) Urine RBC 8 H (0-5) /hpf Urine WBC 9 H (0-5) /hpf Ur Squamous Epith Cells 6 H (0-4) /hpf Amorphous Sediment Rare H (None) /hpf Urine Bacteria Rare H (None) /hpf Hyaline Casts 1 (0-2) /lpf Urine Mucus Moderate H (None) /hpf Urine HCG, Qual (Not Detectd) Influenza Type A (PCR) (Not Detectd) Influenza Type B (PCR) (Not Detectd) RSV (PCR) (Not Detectd) SARS-CoV-2 (PCR) (Not Detectd) 04/28/24 04/28/24 Range/Units 19:16 19:16 WBC (3.8-10.6) k/uL RBC (3.80-5.40) m/uL Hgb (11.4-16.0) gm/dL Hct (34.0-46.0) % MCV (80.0-100.0) fL MCH (25.0-35.0) pg MCHC (31.0-37.0) g/dL RDW (11.5-15.5) % Plt Count (150-450) k/uL MPV Neutrophils % % Lymphocytes % % Monocytes % % Eosinophils % % Basophils % % Neutrophils # (1.3-7.7) k/uL Lymphocytes # (1.0-4.8) k/uL Monocytes # (0-1.0) k/uL Eosinophils # (0-0.7) k/uL Basophils # (0-0.2) k/uL Sodium (137-145) mmol/L Potassium (3.5-5.1) mmol/L Chloride (98-107) mmol/L Carbon Dioxide (22-30) mmol/L Anion Gap mmol/L BUN (7-17) mg/dL Creatinine (0.52-1.04) mg/dL Est GFR (CKD-EPI)AfAm (>60 ml/min/1.73 sqM) Est GFR (CKD-EPI)NonAf (>60 ml/min/1.73 sqM) Glucose (74-99) mg/dL Calcium (8.4-10.2) mg/dL Total Bilirubin (0.2-1.3) mg/dL AST (14-36) U/L ALT (4-34) U/L Alkaline Phosphatase (38-126) U/L Total Protein (6.3-8.2) g/dL Albumin (3.5-5.0) g/dL Lipase (23-300) U/L Urine Color Urine Appearance (Clear) Urine pH (5.0-8.0) Ur Specific [place] (1.001-1.035) Urine Protein (Negative) Urine Glucose (UA) (Negative) Urine Ketones (Negative) Urine Blood (Negative) Urine Nitrite (Negative) Urine Bilirubin (Negative) Urine Urobilinogen (<2.0) mg/dL Ur Leukocyte Esterase (Negative) Urine RBC (0-5) /hpf Urine WBC (0-5) /hpf Ur Squamous Epith Cells (0-4) /hpf Amorphous Sediment (None) /hpf Urine Bacteria (None) /hpf Hyaline Casts (0-2) /lpf Urine Mucus (None) /hpf Urine HCG, Qual Not Detected (Not Detectd) Influenza Type A (PCR) Not Detected (Not Detectd) Influenza Type B (PCR) Not Detected (Not Detectd) RSV (PCR) Not Detected (Not Detectd) SARS-CoV-2 (PCR) Not Detected (Not Detectd) Disposition Clinical Impression: Viral syndrome Disposition: HOME SELF-CARE Condition: Stable Referrals: None,Stated [Primary Care Provider] - 1-2 days
[2024-04-28] MEDS: ACETAMINOPHEN TAB 500 MG TAB PO STA (19:22)
[2024-04-28 19:23] LABS: Basophils % (A) 0 %; Eosinophils # (A) 0.2 k/uL (0-0.7); Eosinophils % (A) 2 %; HCT 42.2 % (34.0-46.0); Lymphocytes # (A) 1.5 k/uL (1.0-4.8); Lymphocytes % (A) 17 %; MCH 29.8 pg (25.0-35.0); MCHC 33.3 g/dL (31.0-37.0); MCV 89.4 fL (80.0-100.0); Mean Platelet Volume 6.6; Monocytes # (A) 0.4 k/uL (0-1.0); Monocytes % (A) 5 %; Neutrophils # (A) 6.5 k/uL (1.3-7.7); Neutrophils % (A) 75 %; Platelet Count 323 k/uL (150-450); RBC 4.72 m/uL (3.80-5.40); RDW 13.6 % (11.5-15.5); WBC 8.7 k/uL (3.8-10.6)
[2024-04-28] MEDS: KETOROLAC 15 MG/ML 1 ML VIAL IVP STA (19:25)
[2024-04-28] MEDS: ONDANSETRON 4 MG/2 ML VIAL IVP STA (19:25)
[2024-04-28] MEDS: SODIUM CHLORIDE 0.9% 1,000 ML IV ONE (19:26)
[2024-04-28 19:38] LABS: ALT 16 U/L (4-34); AST 21 U/L (14-36); African American GFR (CKD) >90 (>60 ml/min/1.73 sqM); Albumin 5.1 g/dL (3.5-5.0); Alkaline Phosphatase 90 U/L (38-126); Anion Gap 12 mmol/L; Blood Urea Nitrogen 12 mg/dL (7-17); Carbon Dioxide 21 mmol/L (22-30); Chloride 103 mmol/L (98-107); Glucose 98 mg/dL (74-99); Lipase 35 U/L (23-300); Non-African American GFR(CKD) >90 (>60 ml/min/1.73 sqM); Potassium 4.1 mmol/L (3.5-5.1); Sodium 136 mmol/L (137-145); Total Bilirubin 0.7 mg/dL (0.2-1.3); Total Protein 8.7 g/dL (6.3-8.2)
--- NOTE | 2024-04-28 19:44 | XR ---
EXAMINATION TYPE: XR chest 2V DATE OF EXAM: 04/28/2024 7:40 PM COMPARISON: Prior chest radiograph 07/22/2021. CLINICAL INDICATION: Female, 28 years old with history of fever; H TECHNIQUE: XR chest 2V Frontal and lateral views of the chest. FINDINGS: Lungs/Pleura: There is no evidence of pleural effusion, focal consolidation, or pneumothorax. Pulmonary vascularity: Unremarkable. Heart/mediastinum: Cardiomediastinal silhouette is unremarkable. Musculoskeletal: No acute osseous pathology. Other findings: None IMPRESSION: No acute cardiopulmonary disease/process. [facility], , 04/28/2024 7:42 PM
[2024-04-28 19:59] LABS: Influenza A Not Detected (Not Detectd); Influenza B Not Detected (Not Detectd); RSV Not Detected (Not Detectd)
[2024-04-28 20:07] LABS: Amorphous Sediment,Urine Rare /hpf; Appearance,Urine Clear (Clear); Bacteria,Urine Rare /hpf; Bilirubin,Urine Negative (Negative); Blood,Urine Large (Negative); Color,Urine Yellow; Glucose,Urine (UA) Negative (Negative); Hyaline Casts,Urine 1 /lpf (0-2); Ketones,Urine Trace (Negative); Leukocyte Esterase,Urine Trace (Negative); Mucus,Urine Moderate /hpf; Nitrite,Urine Negative (Negative); PH, Urine 5.5 (5.0-8.0); Protein,Urine Negative (Negative); RBC,Urine 8 /hpf (0-5); Specific Gravity,Urine 1.026 (1.001-1.035); Squamous Epithelial Cell,Urine 6 /hpf (0-4); Urobilinogen,Urine <2.0 mg/dL (<2.0); WBC,Urine 9 /hpf (0-5)
[2024-04-28 20:50] VITALS: BP 158/90; PULSE 100; RESP 18
[2024-04-28] MEDS: ACET/COD 300 MG/30 MG STARTER PACK 6 TAB BTL PO STA (20:54)
[2024-04-28] MEDS: ONDANSETRON 4 MG ODT STARTER PACK 2 TAB BTL PO STA (20:54)
== END 2024-04-28 20:58 | disposition home or self-care (01) ==
LOC: EC 18:13
DX: B34.9 Viral infection, unspecified (principal); F17.290 Nicotine dependence, other tobacco product, uncomplicated; Z91.041 Radiographic dye allergy status; Z88.8 Allergy status to other drugs, medicaments and biological substances
CPT/HCPCS: 36415; 93005; 80053; 83690; 85025; 81001; 81025; 87086; 87636; 71046; 99284; 96374; 96375; 96361; J2405; J1885; S0119